=== PATIENT | female | born 1975 | race Caucasian/White ===

== ENCOUNTER 2023-05-10 20:34 | Outpatient (REF) | payer OTHER, SELFPAY ==
[2023-05-13 10:14] LABS: Age Gdln ACOG Testing Note (.); HPV Aptima Negative (Negative); IGP, Aptima HPV, rfx 16/18,45 Note (.)
== END 2023-05-10 20:35 | disposition home or self-care (01) ==
LOC: LAB 20:34
PROVIDERS: PCP Family Medicine; Visit Provider Internal Medicine
DX: Z12.4 Encounter for screening for malignant neoplasm of cervix (principal)
CPT/HCPCS: 87624; G0145

== ENCOUNTER 2023-08-09 10:54 | Outpatient (OUT) | payer OTHER, SELFPAY ==
--- NOTE | 2023-08-09 11:04 | MM_ITS ---
Patient Name: GAYLE CAMARA MR#: [id number] : 1975 Exam Date: 08/09/2023 Ordering Doctor: DR Jermain Collins . RADIOLOGY REPORT PROCEDURE: MM TOMOSYNTHESIS SCREENING BI COMPARISON: MG MAMM SCREEN 3D ANGÉLICA CAD, 07/28/2021. MG MAMM SCREEN 3D ANGÉLICA CAD, 08/03/2022. INDICATIONS: Screening Calculator Name NCI Breast Cancer Risk Assessment Tool 5 Year Breast Cancer Risk 1.00% Lifetime Breast Cancer Risk 10.20% Personal Breast Cancer No Personal Ovarian Cancer No Treatments None Family Cancers Aunt-maternal with breast cancer at age ~50. LOCATION: [facility] BREAST COMPOSITION: Heterogeneously dense,which may obscure small masses. FINDINGS: DIAGNOSTIC CATEGORY 2--BENIGN FINDING. NO CHANGE FROM COMPARISON. Scattered benign-appearing nodules are present. Scattered benign-appearing calcifications are present. Scattered benign-appearing lymph nodes are present. RIGHT BREAST: No significant suspicious finding. LEFT BREAST: No significant suspicious finding. RECOMMENDATIONS: ROUTINE MAMMOGRAM AND CLINICAL EVALUATION IN 12 MONTHS. PLEASE NOTE: A NORMAL MAMMOGRAM DOES NOT EXCLUDE THE POSSIBILITY OF BREAST CANCER. A CLINICALLY SUSPICIOUS PALPABLE LUMP SHOULD BE BIOPSIED. Dictated by: Alan Hoyos MD on 08/09/2023 at 13:34 Approved by: Alan Hoyos MD on 08/09/2023 at 13:40
== END 2023-08-09 10:55 | disposition home or self-care (01) ==
LOC: MAMMO 10:57
PROVIDERS: PCP Family Medicine; Visit Provider Obstetrics & Gynecology
DX: Z12.31 Encounter for screening mammogram for malignant neoplasm of breast (principal); Z80.3 Family history of malignant neoplasm of breast
CPT/HCPCS: 77063; 77067

== ENCOUNTER 2024-07-17 21:44 | Outpatient (REF) | payer OTHER, SELFPAY ==
--- OUTSIDE RECORDS SUMMARY | 2024-07-17 21:48 | XMS_ITS | CCD ---
Author Organization [facility] Care Team Providers Care Commercial Lines Assistant Name Role Phone DR RADHA MENA Admitting Unavailable DR RADHA MENA Attending Unavailable DR LUIS GAXIOLA Primary Care Unavailable SAMUEL, DR ELOISA Camargo Consulting Unavailable DR RADHA MENA Consulting Unavailable PUMP, MELVIN Attending Unavailable LUIS GAXIOLA Attending Unavailable Allergies Allergy Classification Reported Allergen(s) Allergy Type Date of Onset Reaction(s) Facility (1 source) Iodine (And Iodine Containting Drugs) Drug allergy (disorder) 06-10-20 15 [facility] Repository (1 source) moxifloxacin Drug Allergy 02-29-20 13 [facility] (1 source) Sulfonamides (Antibiotic) Drug allergy (disorder) 06-10-20 15 [facility] (4 sources) moxifloxacin Drug Allergy 01-31-20 24 Gastrointestinal Upset [facility] (4 sources) Gadolinium-Cont aining Contrast Medi Allergy to substance 01-31-20 24 [facility] (4 sources) Iodinated Contrast Media Allergy to substance 01-31-20 24 [facility] Medications Current Medications Medication Drug Class(es) Dates Sig (Normalized) Sig (Original) budesonide 0.032 mg/actuat metered dose nasal spray (4 sources) Corticosteroid Start: 4 take 1 spray(s) nasal route once daily Budesonide Active 1 SPRAY INTRANASAL Daily January 31, 2024 12:00am administer into each nostril citalopram 20 mg oral tablet (4 sources) Serotonin Reuptake Inhibitor Start: 4 take 20 mg by mouth once daily Citalopram Active 20 MG PO Daily January 31, 2024 12:00am hydroCHLOROthiazide 25 mg / lisinopril 20 mg oral tablet (4 sources) Thiazide Diuretic, Angiotensin Converting Enzyme Inhibitor Start: 4 take 1 tablet by mouth once daily Lisinopril-Hydroc hlorothiazide Active 1 TAB PO Daily January 31, 2024 12:00am hyoscyamine sulfate 0.125 mg oral tablet (4 sources) Start: 4 Hyoscyamine Sulfate Active 0.125 MG PO 2-4 TIMES PER DAY January 31, 2024 12:00am levothyroxine sodium 0.125 mg oral tablet (4 sources) l-Thyroxine Start: 4 take 125 ug by mouth once daily Levothyroxine Active 125 MCG PO Daily January 31, 2024 12:00am metFORMIN hydrochloride 500 mg oral tablet (4 sources) Biguanide Start: 4 take 500 mg by mouth once daily Metformin Active 500 MG PO Daily January 31, 2024 12:00am promethazine hydrochloride 25 mg oral tablet (4 sources) Phenothiazine Start: 4 take 25 mg by mouth three times daily Promethazine Active 25 MG PO Three times daily January 31, 2024 12:00am rimegepant 75 mg disintegrating oral tablet (4 sources) Start: 4 Rimegepant (Nurtec Odt) 75 mg tablet,disintegra ting Active 75 MG PO .prn January 31, 2024 12:00am rizatriptan 10 mg oral tablet (4 sources) Serotonin-1b and Serotonin-1d Receptor Agonist Start: 4 take 1 tablet by mouth every two hours Rizatriptan Active 0 PO .COMPLEX January 31, 2024 12:00am take 1 tab at onset of headache; if no relief may repeat 1 tab after at least 2 hrs; max = 3 tabs/24 hr PO Semaglutide Base (3 sources) Start: 4 inject 1 mL by subcutaneous injection every week Semaglutide Base Active 0.25 ML SUBCUT every week January 31, 2024 12:00am [facility] Compounded Pre-filled Syringes using Semaglutide Base. Dispense 1 mL = (Four 0.25 mL pre-filled syringes) Problems Problem Classification Problem Date Documented Da te Episodic/Chronic Anxiety disorders (4 sources) Anxiety; Translations: [Anxiety disorder, unspecified] 01-31-2024 Chronic Diabetes mellitus without complication (10 sources) Prediabetes; Translations: [Prediabetes] 01-31-2024 Episodic Disorders of lipid metabolism (7 sources) Hypertriglyceridemi a; Translations: [Pure hyperglyceridemia] 01-31-2024 Chronic Essential hypertension (10 sources) Hypertensive disorder; Translations: [Essential (primary) hypertension] 01-31-2024 Chronic Headache; including migraine (4 sources) Migraine; Translations: [Migraine, unspecified, not intractable, without status migrainosus] 01-31-2024 Chronic Malaise and fatigue (4 sources) Fatigue; Translations: [Other fatigue] 01-31-2024 Episodic Mood disorders (6 sources) Depressive disorder; Translations: [Depression] 01-31-2024 Chronic Other connective tissue disease (4 sources) Fibromyalgia; Translations: [Fibromyalgia] 01-31-2024 Episodic Other endocrine disorders (4 sources) Polycystic ovary syndrome; Translations: [Polycystic ovarian syndrome] 01-31-2024 Chronic Other endocrine disorders (2 sources) Polycystic ovarian syndrome; Translations: [Polycystic ovaries] 01-31-2024 Chronic Other gastrointestinal disorders (4 sources) Heartburn; Translations: [Heartburn] 01-31-2024 Episodic Other gastrointestinal disorders (2 sources) Heartburn; Translations: [Heartburn] 01-31-2024 Episodic Other lower respiratory disease (4 sources) Snoring; Translations: [Snoring] 01-31-2024 Episodic Other lower respiratory disease (2 sources) Snoring; Translations: [Other respiratory abnormalities] 01-31-2024 Episodic Other nutritional; endocrine; and metabolic disorders (1 source) Body mass index 40+ - severely obese; Translations: [Body mass index (BMI) 40.0-44.9, adult] 03-20-2024 Chronic Other nutritional; endocrine; and metabolic disorders (1 source) Body mass index (BMI) 40.0-44.9, adult; Translations: [Body Mass Index 40.0-44.9, adult] 03-20-2024 Chronic Other nutritional; endocrine; and metabolic disorders (3 sources) Abnormal weight gain; Translations: [Abnormal weight gain] 01-31-2024 Episodic Other nutritional; endocrine; and metabolic disorders (2 sources) Abnormal weight gain; Translations: [Abnormal weight gain] 01-31-2024 Episodic Other screening for suspected conditions (not mental disorders or infectious disease) (4 sources) Encounter for screening mammogram for malignant neoplasm of breast; Translations: [ENC SCR MAMMO MALIG NEOPLASM BREAST] Onset: 08-03-2022 Episodic Residual codes; unclassified (1 source) Family history of malignant neoplasm of breast; Translations: [FAMILY HX MALIG NEOPLASM OF BREAST] Onset: 08-08-2022 Episodic Spondylosis; intervertebral disc disorders; other back problems (4 sources) Low back pain; Translations: [Low back pain] 01-31-2024 Episodic Thyroid disorders (10 sources) Hypothyroidism; Translations: [Hypothyroidism, unspecified] 01-31-2024 Chronic Results Test Name Value Interpretation Reference Range Facil ity MG MAMM SCREEN 3D ANGÉLICA CADon 08-03-2022 MG MAMM SCREEN 3D ANGÉLICA CAD Patient: CHANDA STEVE Exam Date: 08/03/2022 : 1975 Gender:F Ordering : DR RADHA MENA . Admission #: [id number] Family : Order #: [id number] CLICK HERE TO VIEW EXAM RADIOLOGY REPORT PROCEDURE: MAMMOGRAM SCREENING 3D BILATERAL CAD COMPARISON: MG MAMM SCREEN 3D ANGÉLICA CAD, 07/28/2021. MG MAMM SCREEN ANGÉLICA W CAD, 07/05/2020. INDICATIONS: Screening mammography Calculator Name NCI Breast Cancer Risk Assessment Tool 5 Year Breast Cancer Risk 1.00% Lifetime Breast Cancer Risk 10.30% Personal Breast Cancer No Personal Ovarian Cancer No Treatments None Family Cancers Aunt-maternal with breast cancer at age 50. LOCATION: [facility] BREAST COMPOSITION: Heterogeneously dense,which may obscure small masses. FINDINGS: DIAGNOSTIC CATEGORY 2--BENIGN FINDING. NO CHANGE FROM COMPARISON. Scattered benign-appearing nodules are present. Scattered benign-appearing calcifications are present. Scattered benign-appearing lymph nodes are present. RIGHT BREAST: No significant suspicious finding. LEFT BREAST: No significant suspicious finding. RECOMMENDATIONS: ROUTINE MAMMOGRAM AND CLINICAL EVALUATION IN 12 MONTHS. PLEASE NOTE: A NORMAL MAMMOGRAM DOES NOT EXCLUDE THE POSSIBILITY OF BREAST CANCER. A CLINICALLY SUSPICIOUS PALPABLE LUMP SHOULD BE BIOPSIED. Dictated by: Eloisa Hoyos MD on 08/03/2022 at 12:49 Approved by: Eloisa Hoyos MD on 08/03/2022 at 12:50 Normal [facility] Q - CULTURE,URINE,ROUTINEon 12-10-2021 CULTURE, URINE, ROUTINE SEE NOTE Normal [facility] Pile Driving Supervisor Comment on above: Order Comment: [facility]U Testing performed at: QPT, [facility], [address], [address] [facility], [place], [address], Senior Mechanical Designer: Freddy Garcia MD [facility] Collection Date/Time: [id number] [facility] Results Received Date/Time: [facility] Reported Date/Time: Result Comment: CULT URE, URINE, ROUTINE Micro Number: [id number] Test Status: Final Specimen Source: Urine Specimen Quality: Adequate Result: No Growth Performed By: #### [id number] #### [facility] Default [address] [place] [address] XR Abdomen Single View (KUB) *on 12-10-2021 XR Abdomen Single View (KUB)* FINDINGS: Renal shadows and the course of both ureters above the pelvic brim are obscured by moderate to large volume of stool throughout the colon. No distal ureteral or bladder stones are seen. Bowel gas pattern is otherwise unremarkable. Cholecystectomy clips. IMPRESSION: 1. No ureteral or bladder stones 2. Obscured renal shadows COMMENT: If detection of small calcifications would affect clinical management, CT scanning may be of assistance. Report reported and signed by Ramses Alvarez on 12/11/2021 [id number] Normal [facility] Pile Driving Supervisor Vital Signs Date Time Vital Sign Value Performing Clinician Prabhu brito 05-15-2024 10:030400 Body height 160.02 cm [facility] 05-15-2024 10:030400 Body mass index (BMI) [Ratio] 40.4 kg/m2 [facility] 05-15-2024 10:03-0400 Body weight 103.67 kg [facility] 05-15-2024 10:03-0400 Diastolic blood pressure 81 mm[Hg] [facility] 05-15-2024 10:03-0400 Heart rate 88 /min [facility] 05-15-2024 10:030400 Respiratory rate 18 /min [facility] 05-15-2024 10:03-0400 SaO2% (BldA) [Mass fraction] 100 % [facility] 05-15-2024 10:03-0400 Systolic blood pressure 118 mm[Hg] [facility] 03-20-2024 08:25-0400 Body height 160.02 cm [facility] 03-20-2024 08:25-0400 Body mass index (BMI) [Ratio] 41.6 kg/m2 [facility] 03-20-2024 08:25-0400 Body weight 106.67 kg [facility] 03-20-2024 08:25-0400 Diastolic blood pressure 86 mm[Hg] [facility] 03-20-2024 08:25-0400 Heart rate 74 /min [facility] 03-20-2024 08:25-0400 Respiratory rate 16 /min [facility] 03-20-2024 08:25-0400 SaO2% (BldA) [Mass fraction] 100 % [facility] 03-20-2024 08:25-0400 Systolic blood pressure 127 mm[Hg] [facility] 01-31-2024 08:14-0400 Body height 160.02 cm [facility] 01-31-2024 08:14-0400 Body mass index (BMI) [Ratio] 44.1 kg/m2 [facility] 01-31-2024 08:14-0400 Body weight 112.94 kg [facility] 01-31-2024 08:14-0400 Diastolic blood pressure 88 mm[Hg] [facility] 01-31-2024 08:14-0400 Heart rate 77 /min [facility] 01-31-2024 08:14-0400 Respiratory rate 16 /min [facility] 01-31-2024 08:14-0400 SaO2% (BldA) [Mass fraction] 98 % [facility] 01-31-2024 08:14-0400 Systolic blood pressure 134 mm[Hg] [facility] Encounters Encounter Date Encounter Type Care Provider Facility Start: 05-15-2024 End: 05-15-2024 ambulatory [facility] Work Phone: Start: 05-15-2024 End: 05-15-2024 Patient encounter procedure [facility] Work Phone: Start: 03-20-2024 End: 03-20-2024 ambulatory [facility] Work Phone: Start: 03-20-2024 End: 03-20-2024 Patient encounter procedure [facility] Work Phone: Start: 02-22-2024 End: 02-22-2024 ambulatory [facility] Work Phone: Start: 02-22-2024 End: 02-22-2024 Patient encounter procedure [facility] Work Phone: Start: 02-09-2024 End: 02-09-2024 ambulatory LUIS Yanes WONDERLY Not Available Start: 01-31-2024 End: 01-31-2024 ambulatory [facility] Work Phone: Start: 01-31-2024 End: 01-31-2024 Patient encounter procedure [facility] Work Phone: Start: 11-25-2023 Non-patient / Non-visit [facility] Work Phone: Start: 11-08-2023 End: 11-08-2023 ambulatory MELVIN PUMP Not Available Start: 08-03-2022 End: 08-04-[address] RADHA MENA Facility: Payers Date Payer Category Payer Unknown [id number] 1975 Unknown [id number] 1975 Unknown [id number] 1960 Unknown [id number] 1960 Unknown [id number] Social History Date Type Detail Facility Start: [facility]-31-[facility]24 [facility] Start: 1975 Sex Assigned At Female F [facility] Evaluation note 03-20-2024 Note Date & Type Note Facility 03-20-2024 Evaluation note Authored May 15, 2024 10:18am Highest weight/starting weig ht: 249 lbs Start weight: 249 lbs. she is down 20.1 lbs. Today's weight 228.9 lbs she is down 6.4 lbs since last visit 03/20/24. Starting Date: 01/31/2024. Semaglutide start date 01/31/2024. Semaglutide start weight 249 pounds. 1. Abnormal weight gain 2. Obesity-This is her first visit back. Improved on compounded semaglutide. She had tried many times on her own and unable to lose long-term weight and she is at her highest weight ever. She had issues with skipping breakfast, sometimes lunch and eating most of her food at night.The patient will treat with long-term lifestyle changes of improved nutrition, increased exercise and activity, stress reduction, adequate sleep and behavioral modification versus short-term dieting. Her PHQ-9 is 7 with starting the program she is on citalopram 20 mg. We will try to avoid Topamax with history of kidney stones. 3. Impaired fasting glucose/prediabetes/gestational helcbtrf-niicc-wsmk treatment with lifestyle change, decrease simple sweets and starches, increased exercise and weight loss. Restart 1000 mg metformin which also helps with her chronic constipation. Recommend a GLP-1 agonist. Needs close long-term follow-up this condition to prevent diabetes. 4. Hypertension-treat with a low-salt diet, decreased processed and restaurant foods, healthy lifestyle changes and achieve long-term weight loss. Monitor outside the office. Controlled on lisinopril-HCTZ. 5. Hypertriglyceridemia-treat with decreasing the simple sweets, added sugars, refined starches, and bad/added fats, increasing activity and exercise and continued long-term weight loss. 6. Kidney stones 7. Hypothyroidism-her TSH was 4 when checked last May. Recommend a goal TSH between 1-2 with her PCP. 8. Menopause-began September 2023. 9. Depression/anxiety-controlled her mood is good and stress level down now on citalopram. Citalopram could cause weight creep in the future if possible she could see how she is doing weaning off the medication. 10. PCOS-treat with healthy lifestyle and metformin. 11. Chronic low back pain-treat with healthy exercise and weight loss. 12. GERD-treat with antireflux diet and weight loss. Hopefully will not worsen with GLP-1. Follow up with me in 6 weeks. New labs needed: Up-to-date. She will need yearly follow-up blood work in May to follow-up her prediabetes and hypertriglyceridemia Author Breezy Salas [facility] Authored March 20, 2024 9:06 am Highest weight/starting weig ht: 249 lbs Start weight: 249 lbs. she is down 13.7 lbs. Today's weight 235.3 lbs she is down 13.7 lbs since last visit 01/31/24. Starting Date: 01/31/2024. Semaglutide start date 01/31/2024. Semaglutide start weight 249 pounds. 1. Abnormal weight gain 2. Obesity-This is her first visit back. Improved on compounded semaglutide. She had tried many times on her own and unable to lose long-term weight and she is at her highest weight ever. She had issues with skipping breakfast, sometimes lunch and eating most of her food at night.The patient will treat with long-term lifestyle changes of improved nutrition, increased exercise and activity, stress reduction, adequate sleep and behavioral modification versus short-term dieting. Her PHQ-9 is 7 with starting the program she is on citalopram 20 mg. We will try to avoid Topamax with history of kidney stones. 3. Impaired fasting glucose/prediabetes/gestational rzqswmna-sytpz-iuji treatment with lifestyle change, decrease simple sweets and starches, increased exercise and weight loss. Restart 1000 mg metformin which also helps with her chronic constipation. Recommend a GLP-1 agonist. Needs close long-term follow-up this condition to prevent diabetes. 4. Hypertension-treat with a low-salt diet, decreased processed and restaurant foods, healthy lifestyle changes and achieve long-term weight loss. Monitor outside the office. Controlled on lisinopril-HCTZ. 5. Hypertriglyceridemia-treat with decreasing the simple sweets, added sugars, refined starches, and bad/added fats, increasing activity and exercise and continued long-term weight loss. 6. Kidney stones 7. Hypothyroidism-her TSH was 4 when checked last May. Recommend a goal TSH between 1-2 with her PCP. 8. Menopause-began September 2023. 9. Depression/anxiety-controlled her mood is good and stress level down now on citalopram. Citalopram could cause weight creep in the future if possible she could see how she is doing weaning off the medication. 10. PCOS-treat with healthy lifestyle and metformin. 11. Chronic low back pain-treat with healthy exercise and weight loss. 12. GERD-treat with antireflux diet and weight loss. Hopefully will not worsen with GLP-1. Follow up with me in 6 weeks. New labs needed: Up-to-date. She will need yearly follow-up blood work in May to follow-up her prediabetes and hypertriglyceridemia. [facility] Work Phone: Evaluation note 01-31-2024 Note Date & Type Note Facility 01-31-2024 Evaluation note Authored January 31, 2024 9:24am Assessment: Highest weight/starting weight: 249 lbs Start weight: 249 lbs. Starting Date: 01/31/2024. Semaglutide start date 01/31/2024. Semaglutide start weight 249 pounds. 1. Abnormal weight gain 2. Obesity-she would like to try compounded semaglutide as weight loss medications most likely not covered by her insurance. She has tried many times on her own and unable to lose long-term weight and she is at her highest weight ever. She has issues with skipping breakfast, sometimes lunch and eating most of her food at night.The patient will treat with long-term lifestyle changes of improved nutrition, increased exercise and activity, stress reduction, adequate sleep and behavioral modification versus short-term dieting. Her PHQ-9 is 7 with starting the program she is on citalopram 20 mg. We will try to avoid Topamax with history of kidney stones. The patient has no contraindications to semaglutide. The patient does not feel that she can afford the branded version and not covered by insurance. She would like to try compounded semaglutide. The patient will begin compounded semaglutide to help with both glycemic control and satiety. The risks, benefits and side effects were discussed; including but not limited to the risk of nausea, vomiting, increased heartburn, abdominal discomfort, constipation diarrhea and risk of hypoglycemia. The patient was also counseled on the slight increase risk of acute pancreatitis and symptomatic choledocholithiasis. The patient denies any previous history of pancreatitis, gallbladder disease or personal or family history of medullary thyroid cancer or MEN syndrome. -Begin 0.3 mg weekly. The patient will stop compounded semaglutide any significant nausea, vomiting, abdominal pain or other side effects. 3. Impaired fasting glucose/prediabetes/gestational kluppojl-ahgvv-zthc treatment with lifestyle change, decrease simple sweets and starches, increased exercise and weight loss. Restart 1000 mg metformin which also helps with her chronic constipation. Recommend a GLP-1 agonist. Needs close long-term follow-up this condition to prevent diabetes. 4. Hypertension-treat with a low-salt diet, decreased processed and restaurant foods, healthy lifestyle changes and achieve long-term weight loss. Monitor outside the office. Controlled on lisinopril-HCTZ. 5. Hypertriglyceridemia-treat with decreasing the simple sweets, added sugars, refined starches, and bad/added fats, increasing activity and exercise and continued long-term weight loss. 6. Kidney stones 7. Hypothyroidism-her TSH was 4 when checked last May. Recommend a goal TSH between 1-2 with her PCP. 8. Menopause-began September 2023. 9. Depression/anxiety-controlled her mood is good and stress level down now on citalopram. Citalopram could cause weight creep in the future if possible she could see how she is doing weaning off the medication. 10. PCOS-treat with healthy lifestyle and metformin. 11. Chronic low back pain-treat with healthy exercise and weight loss. 12. GERD-treat with antireflux diet and weight loss. Hopefully will not worsen with GLP-1. Follow up with me in 6 weeks. New labs needed: Up-to-date. She will need yearly follow-up blood work in May to follow-up her prediabetes and hypertriglyceridemia. The patient was instructed to consider logging all foods and caloric beverages. I highly recommended minimizing or stopping caloric beverages including alcohol. The importance of preplanning, shopping at the edge of the store, decreasing unhealthy food cues and environmental control stressed. I recommend packing snacks and meals when out of the home. Remove trigger/unhealthy foods if possible from the home. No macronutrient is completely restricted. We discussed the addictive nature and unhealthy biological changes that occur with ultra processed food. We discussed the brain and peripheral biological changes with obesity that make it a chronic disease. Importance of cooking most food items from scratch discussed. No skipping any meals. Avoid added sugar, refined starches, and added fats. I highly recommended preference for whole foods/real foods. Foods from the farm, not from the factory. The plate method discussed and handout given. Lean unprocessed protein with each meal and each snack to help control appetite, decrease cravings and lessen muscle loss with weight loss advised. Consider use of a protein shake or protein bar instead of missing a meal. The patient will try to get at least 5 or more servings of low carbohydrate veggies/salads daily. Recommend regular follow-up with our registered dietitian. Benefits of regular exercise including cardio and resistance training discussed and recommended as appropriate for the patient. Slowly increase activity. Our exercise program was recommended with our agricultural systems specialist/obesity exercise group. Handout given. Our free weekly group support/food triggers program was highly recommended to help with long-term behavioral change and support. Handout given. The patient must start healthy behavioral changes. The patient was instructed on good sleep hygiene and on the importance of adequate sleep. Circadian rhythm and the importance of mealtime discussed. I recommended stress reduction. Medication addition and subtraction options discussed. Risks and benefits of prescribed meds discussed. Initial rhjz-xm-[id number] interview/evaluation. The patient was counseled in detail on the options for weight loss in an individual setting. 56 minutes was spent caring for the patient, counseling/educating patient on the options for the treatment of obesity and related healthcare issues. The program's treatment goals were reviewed with the patient. Each aspect of the program was discussed with the patient. [facility] Work Phone: Evaluation note 01-31-2024 Note Date & Type Note Facility 01-31-2024 Evaluation note Authored January 31, 2024 9:24am Assessment: Highest weight/starting weight: 249 lbs Start weight: 249 lbs. Starting Date: 01/31/2024. Semaglutide start date 01/31/2024. Semaglutide start weight 249 pounds. 1. Abnormal weight gain 2. Obesity-she would like to try compounded semaglutide as weight loss medications most likely not covered by her insurance. She has tried many times on her own and unable to lose long-term weight and she is at her highest weight ever. She has issues with skipping breakfast, sometimes lunch and eating most of her food at night.The patient will treat with long-term lifestyle changes of improved nutrition, increased exercise and activity, stress reduction, adequate sleep and behavioral modification versus short-term dieting. Her PHQ-9 is 7 with starting the program she is on citalopram 20 mg. We will try to avoid Topamax with history of kidney stones. The patient has no contraindications to semaglutide. The patient does not feel that she can afford the branded version and not covered by insurance. She would like to try compounded semaglutide. The patient will begin compounded semaglutide to help with both glycemic control and satiety. The risks, benefits and side effects were discussed; including but not limited to the risk of nausea, vomiting, increased heartburn, abdominal discomfort, constipation diarrhea and risk of hypoglycemia. The patient was also counseled on the slight increase risk of acute pancreatitis and symptomatic choledocholithiasis. The patient denies any previous history of pancreatitis, gallbladder disease or personal or family history of medullary thyroid cancer or MEN syndrome. -Begin 0.3 mg weekly. The patient will stop compounded semaglutide any significant nausea, vomiting, abdominal pain or other side effects. 3. Impaired fasting glucose/prediabetes/gestational rbogkspu-thqhp-mpuo treatment with lifestyle change, decrease simple sweets and starches, increased exercise and weight loss. Restart 1000 mg metformin which also helps with her chronic constipation. Recommend a GLP-1 agonist. Needs close long-term follow-up this condition to prevent diabetes. 4. Hypertension-treat with a low-salt diet, decreased processed and restaurant foods, healthy lifestyle changes and achieve long-term weight loss. Monitor outside the office. Controlled on lisinopril-HCTZ. 5. Hypertriglyceridemia-treat with decreasing the simple sweets, added sugars, refined starches, and bad/added fats, increasing activity and exercise and continued long-term weight loss. 6. Kidney stones 7. Hypothyroidism-her TSH was 4 when checked last May. Recommend a goal TSH between 1-2 with her PCP. 8. Menopause-began September 2023. 9. Depression/anxiety-controlled her mood is good and stress level down now on citalopram. Citalopram could cause weight creep in the future if possible she could see how she is doing weaning off the medication. 10. PCOS-treat with healthy lifestyle and metformin. 11. Chronic low back pain-treat with healthy exercise and weight loss. 12. GERD-treat with antireflux diet and weight loss. Hopefully will not worsen with GLP-1. Follow up with me in 6 weeks. New labs needed: Up-to-date. She will need yearly follow-up blood work in May to follow-up her prediabetes and hypertriglyceridemia. The patient was instructed to consider logging all foods and caloric beverages. I highly recommended minimizing or stopping caloric beverages including alcohol. The importance of preplanning, shopping at the edge of the store, decreasing unhealthy food cues and environmental control stressed. I recommend packing snacks and meals when out of the home. Remove trigger/unhealthy foods if possible from the home. No macronutrient is completely restricted. We discussed the addictive nature and unhealthy biological changes that occur with ultra processed food. We discussed the brain and peripheral biological changes with obesity that make it a chronic disease. Importance of cooking most food items from scratch discussed. No skipping any meals. Avoid added sugar, refined starches, and added fats. I highly recommended preference for whole foods/real foods. Foods from the farm, not from the factory. The plate method discussed and handout given. Lean unprocessed protein with each meal and each snack to help control appetite, decrease cravings and lessen muscle loss with weight loss advised. Consider use of a protein shake or protein bar instead of missing a meal. The patient will try to get at least 5 or more servings of low carbohydrate veggies/salads daily. Recommend regular follow-up with our registered dietitian. Benefits of regular exercise including cardio and resistance training discussed and recommended as appropriate for the patient. Slowly increase activity. Our exercise program was recommended with our agricultural systems specialist/obesity exercise group. Handout given. Our free weekly group support/food triggers program was highly recommended to help with long-term behavioral change and support. Handout given. The patient must start healthy behavioral changes. The patient was instructed on good sleep hygiene and on the importance of adequate sleep. Circadian rhythm and the importance of mealtime discussed. I recommended stress reduction. Medication addition and subtraction options discussed. Risks and benefits of prescribed meds discussed. Initial cmzf-nw-bywx interview/evaluation. The patient was counseled in detail on the options for weight loss in an individual setting. 56 minutes was spent caring for the patient, counseling/educating patient on the options for the treatment of obesity and related healthcare issues. The program's treatment goals were reviewed with the patient. Each aspect of the program was discussed with the patient. Author Mary Ellen Maico [facility] Authored March 20, 2024 8:41 am Highest weight/starting weig ht: 249 lbs Start weight: 249 lbs. she is down 13.7 lbs. Today's weight 235.3 lbs she is down 13.7 lbs since last visit 01/31/24. Starting Date: 01/31/2024. Semaglutide start date 01/31/2024. Semaglutide start weight 249 pounds. 1. Abnormal weight gain 2. Obesity-she would like to try compounded semaglutide as weight loss medications most likely not covered by her insurance. She has tried many times on her own and unable to lose long-term weight and she is at her highest weight ever. She has issues with skipping breakfast, sometimes lunch and eating most of her food at night.The patient will treat with long-term lifestyle changes of improved nutrition, increased exercise and activity, stress reduction, adequate sleep and behavioral modification versus short-term dieting. Her PHQ-9 is 7 with starting the program she is on citalopram 20 mg. We will try to avoid Topamax with history of kidney stones. The patient has no contraindications to semaglutide. The patient does not feel that she can afford the branded version and not covered by insurance. She would like to try compounded semaglutide. The patient will begin compounded semaglutide to help with both glycemic control and satiety. The risks, benefits and side effects were discussed; including but not limited to the risk of nausea, vomiting, increased heartburn, abdominal discomfort, constipation diarrhea and risk of hypoglycemia. The patient was also counseled on the slight increase risk of acute pancreatitis and symptomatic choledocholithiasis. The patient denies any previous history of pancreatitis, gallbladder disease or personal or family history of medullary thyroid cancer or MEN syndrome. -Begin 0.3 mg weekly. The patient will stop compounded semaglutide any significant nausea, vomiting, abdominal pain or other side effects. 3. Impaired fasting glucose/prediabetes/gestational ygjwiqzd-eglmu-bnlu treatment with lifestyle change, decrease simple sweets and starches, increased exercise and weight loss. Restart 1000 mg metformin which also helps with her chronic constipation. Recommend a GLP-1 agonist. Needs close long-term follow-up this condition to prevent diabetes. 4. Hypertension-treat with a low-salt diet, decreased processed and restaurant foods, healthy lifestyle changes and achieve long-term weight loss. Monitor outside the office. Controlled on lisinopril-HCTZ. 5. Hypertriglyceridemia-treat with decreasing the simple sweets, added sugars, refined starches, and bad/added fats, increasing activity and exercise and continued long-term weight loss. 6. Kidney stones 7. Hypothyroidism-her TSH was 4 when checked last May. Recommend a goal TSH between 1-2 with her PCP. 8. Menopause-began September 2023. 9. Depression/anxiety-controlled her mood is good and stress level down now on citalopram. Citalopram could cause weight creep in the future if possible she could see how she is doing weaning off the medication. 10. PCOS-treat with healthy lifestyle and metformin. 11. Chronic low back pain-treat with healthy exercise and weight loss. 12. GERD-treat with antireflux diet and weight loss. Hopefully will not worsen with GLP-1. Follow up with me in 6 weeks. New labs needed: Up-to-date. She will need yearly follow-up blood work in May to follow-up her prediabetes and hypertriglyceridemia. [facility] Work Phone: Chief complaint+Reason for visit Narrative Note Date & Type Note Facility Chief complaint+Reason for v isit Narrative [facility] Work Phone: Chief complaint+Reason for visit Narrative Note Date & Type Note Facility Chief complaint+Reason for visit Narrative Reason for Visit Abnormal weight gain Depression Essential hypertension Lani's disease Heart burn Hypertriglyceridemia Loud snoring Polycystic ovarian syndrome Prediabetes [facility] Work Phone: Evaluation note Note Date & Type Note Facility Evaluation note Authored January 31, 2024 9:19am Assessment: Highest weight/starting weight: 249 lbs Start weight: 249 lbs. Starting Date: 01/31/2024. Semaglutide start date 01/31/2024. Semaglutide start weight 249 pounds. 1. Abnormal weight gain 2. Obesity-she would like to try compounded semaglutide as weight loss medications most likely not covered by her insurance. She has tried many times on her own and unable to lose long-term weight and she is at her highest weight ever. She has issues with skipping breakfast, sometimes lunch and eating most of her food at night.The patient will treat with long-term lifestyle changes of improved nutrition, increased exercise and activity, stress reduction, adequate sleep and behavioral modification versus short-term dieting. Her PHQ-9 is 7 with starting the program she is on citalopram 20 mg. The patient has no contraindications to semaglutide. The patient does not feel that she can afford the branded version and not covered by insurance. She would like to try compounded semaglutide. The patient will begin compounded semaglutide to help with both glycemic control and satiety. The risks, benefits and side effects were discussed; including but not limited to the risk of nausea, vomiting, increased heartburn, abdominal discomfort, constipation diarrhea and risk of hypoglycemia. The patient was also counseled on the slight increase risk of acute pancreatitis and symptomatic choledocholithiasis. The patient denies any previous history of pancreatitis, gallbladder disease or personal or family history of medullary thyroid cancer or MEN syndrome. -Begin 0.3 mg weekly. The patient will stop compounded semaglutide any significant nausea, vomiting, abdominal pain or other side effects. 3. Impaired fasting glucose/prediabetes/gestational goqixdtu-cwerp-orpb treatment with lifestyle change, decrease simple sweets and starches, increased exercise and weight loss. Restart 1000 mg metformin which also helps with her chronic constipation. Recommend a GLP-1 agonist. Needs close long-term follow-up this condition to prevent diabetes. 4. [ ] 5. [ ] 6. [ ] 7. [ ] 8. [ ] 9. [ ] 10. [ ] 11. [ ] Follow up with me in 6 weeks. New labs needed: [TSH, cholesterol profile, and CMP] The patient was instructed to consider logging all foods and caloric beverages. I highly recommended minimizing or stopping caloric beverages including alcohol. The importance of preplanning, shopping at the edge of the store, decreasing unhealthy food cues and environmental control stressed. I recommend packing snacks and meals when out of the home. Remove trigger/unhealthy foods if possible from the home. No macronutrient is completely restricted. We discussed the addictive nature and unhealthy biological changes that occur with ultra processed food. We discussed the brain and peripheral biological changes with obesity that make it a chronic disease. Importance of cooking most food items from scratch discussed. No skipping any meals. Avoid added sugar, refined starches, and added fats. I highly recommended preference for whole foods/real foods. Foods from the farm, not from the factory. The plate method discussed and handout given. Lean unprocessed protein with each meal and each snack to help control appetite, decrease cravings and lessen muscle loss with weight loss advised. Consider use of a protein shake or protein bar instead of missing a meal. The patient will try to get at least 5 or more servings of low carbohydrate veggies/salads daily. Recommend regular follow-up with our registered dietitian. Benefits of regular exercise including cardio and resistance training discussed and recommended as appropriate for the patient. Slowly increase activity. Our exercise program was recommended with our agricultural systems specialist/obesity exercise group. Handout given. Our free weekly group support/food triggers program was highly recommended to help with long-term behavioral change and support. Handout given. The patient must start healthy behavioral changes. The patient was instructed on good sleep hygiene and on the importance of adequate sleep. Circadian rhythm and the importance of mealtime discussed. I recommended stress reduction. Medication addition and subtraction options discussed. Risks and benefits of prescribed meds discussed. Initial lfpb-by-tugy interview/evaluation. The patient was counseled in detail on the options for weight loss in an individual setting. [ ] minutes was spent caring for the patient, counseling/educating patient on the options for the treatment of obesity and related healthcare issues. The program's treatment goals were reviewed with the patient. Each aspect of the program was discussed with the patient. [facility] Work Phone: Summary Purpose Family History Relationship Condition Age at Onset Recorded Date/T trey Not Specified Heart disease Unknown Hypertension Unknown father Diabetes mellitus Unknown Relationship Condition Age at Onset Recorded Date/T trey mother Heart disease Unknown Hypertension Unknown father Diabetes mellitus Unknown Advance Directives Advance Directive Response Recorded Date/ Time Advance Directives No November 24, 2 024 10:19am Chief Complaint and Reason for Visit Chief Complaint Initial [facility] group Reason for Visit BMI 40.0-44.9, adult Essential hypertension Hypertriglyceridemia Prediabetes Additional Source Comments INFORMATION SOURCE (unrecogn ized section and content) DATE CREATED AUTHOR 12/17/2021 [facility] dical Specialist DATE CREATED AUTHOR AUTHOR'S ORGANIZ ATION 08/08/2022 [facility] DATE CREATED AUTHOR AUTHOR'S ORGANIZ ATION 02/10/2024 [facility] d[facility] Specialists EPIC Care Teams (unrecognized sec tion and content) Team Status: Active Member Role Status Ginna Gaxiola MD Primary Care Provider Active Team Status: Inactive Member Role Status Ginna Gaxiola MD Primary Care Provider Active Start: January 31, 2024 End: January 31, 2024 Breezy Salas MD Attending Provider Active Start: January 31, 2024 End: January 31, 2024 Team Status: Inactive Member Role Status Ginna Gaxiola MD Primary Care Provider Active Start: February 22, 2024 End: February 22, 2024 SILVERIO Vallejo Attending Provider Active Start: February 22, 2024 End: February 22, 2024 Team Status: Inactive Member Role Status Ginna Gaxiola MD Primary Care Provider Active Start: March 20, 2024 End: March 20, 2024 Breezy Salas MD Attending Provider Active Start: March 20, 2024 End: March 20, 2024 Team Status: Active Member Role Status Ginna Gaxiola MD Primary Care Provider Active Start: November 25, 2023 Kathya Hay RPH Attending Provider Active Start: November 25, 2023 Team Status: Inactive Member Role Status Ginna Gaxiola MD Primary Care Provider Active Start: May 15, 2024 End: May 15, 2024 Breezy Salas MD Attending Provider Active Start: May 15, 2024 End: May 15, 2024 Goals (unrecognized section and content) Goals may be documented in a n alternate sectionGoals may be documented in an alternate sectionGoals may be documented in an alternate sectionGoals may be documented in an alternate section FOR RECORDS PERTAINING TO PATIENTS WHO ARE OR HAVE BEEN ENROLLED IN A CHEMICAL DEPENDENCY/SUBSTANCEABUSE PROGRAM, SOME INFORMATION MAY BE OMITTED. This clinical summary was aggregated from multiple sources. Caution should be exercised in using it in the provision of clinical care. This summary normalizes information from multiple sources, and as a consequence, information in this document may materially change the coding, format and clinical context of patient data. In addition, data may be omitted in some cases. CLINICAL DECISIONS SHOULD BE BASED ON THE PRIMARY CLINICAL RECORDS. [facility] [employer] [facility]. provides no warranty or guarantee of the accuracy or completeness of information in this document.
== END 2024-07-17 21:45 | disposition home or self-care (01) ==
LOC: LAB 21:44
PROVIDERS: PCP Family Medicine; Visit Provider Physician Assistant
DX: Z01.419 Encounter for gynecological examination (general) (routine) without abnormal findings (principal)
CPT/HCPCS: 87624; 88175

== ENCOUNTER 2024-08-28 11:13 | Outpatient (OUT) | payer OTHER, SELFPAY ==
--- NOTE | 2024-08-28 11:15 | MM_ITS ---
Patient Name: GAYLE CAMARA MR#: [id number] : 1975 Exam Date: 08/28/2024 Ordering Doctor: DR Jermain Collins . RADIOLOGY REPORT PROCEDURE: MM TOMOSYNTHESIS SCREENING BI COMPARISON: MM TOMOSYNTHESIS SCREENING BI, 08/09/2023. MG MAMM SCREEN 3D ANGÉLICA CAD, 08/03/2022. MG MAMM SCREEN 3D ANGÉLICA CAD, 07/28/2021. MG MAMM ANGÉLICA SCRN W CAD DIG, 03/14/2015. INDICATIONS: Screening Calculator Name NCI Breast Cancer Risk Assessment Tool 5 Year Breast Cancer Risk 1.00% Lifetime Breast Cancer Risk 10.00% Personal Breast Cancer No Personal Ovarian Cancer No Treatments None Family Cancers Aunt-maternal with breast cancer at age ~50. LOCATION: [facility] BREAST COMPOSITION: The breasts are heterogeneously dense,which may obscure small masses. FINDINGS: DIAGNOSTIC CATEGORY 1--NEGATIVE. RIGHT BREAST: No significant suspicious finding. No significant change has occurred. LEFT BREAST: No significant suspicious finding. No significant change has occurred. RECOMMENDATIONS: ROUTINE MAMMOGRAM AND CLINICAL EVALUATION IN 12 MONTHS. PLEASE NOTE: A NORMAL MAMMOGRAM DOES NOT EXCLUDE THE POSSIBILITY OF BREAST CANCER. A CLINICALLY SUSPICIOUS PALPABLE LUMP SHOULD BE BIOPSIED. Dictated by: Corby Manzano M.D. on 08/28/2024 at 17:01 Approved by: Corby Manzano M.D. on 08/28/2024 at 17:03
--- OUTSIDE RECORDS SUMMARY | 2024-08-28 11:28 | XMS_ITS | CCD ---
Author Organization [facility] Care Team Providers Care Intern Retail Name Role Phone DR RADHA MENA Admitting Unavailable DR RADHA MENA Attending Unavailable DR SHAKILA GAXIOLA Primary Care Unavailable SAMUEL, DR ELOISA Camargo Consulting Unavailable DR RADHA MENA Consulting Unavailable Shakila Gaxiola MD Primary Care Provider HAYLEY YADAV Attending Unavailable SHAKILA GAXIOLA Attending Unavailable KATE PRIETO Attending Unavailable SHAKILA GAXIOLA Attending Unavailable KATE PRIETO Attending Unavailable Allergies Allergy Classification Reported Allergen(s) Allergy Type Date of Onset Reaction(s) Facility (1 source) Iodine (And Iodine Containting Drugs) Drug allergy (disorder) 06-10-20 15 [facility] (1 source) moxifloxacin Drug Allergy 02-29-20 13 [facility] (1 source) Sulfonamides (Antibiotic) Drug allergy (disorder) 06-10-20 15 [facility] (16 sources) moxifloxacin Drug Allergy 05-05-20 23 GI intolerance [facility] (4 sources) Gadolinium-Containi ng Contrast Medi Allergy to substance 01-31-20 24 Rash [facility] (16 sources) Iodinated Contrast Media Allergy to substance 06-16-20 21 Rash, Unknown [facility] (12 sources) Acetaminophen / HYDROcodone Drug Allergy 05-05-20 23 Unknown, Itching [facility] (12 sources) Clarithromycin Propensity to adverse reactions 05-05-20 23 Diarrhea [facility] (12 sources) Iodine Drug Allergy 05-05-20 23 Rash [facility] (12 sources) Nitrofurantoin Drug Allergy 05-05-20 23 Dizziness [facility] (12 sources) Ondansetron Drug Allergy 05-05-20 23 Headache [facility] (12 sources) oxyCODONE Drug Allergy 05-05-20 23 Unknown [facility] (12 sources) Sulfamethoxazole / Trimethoprim Drug Allergy 05-05-20 23 Other [facility] (12 sources) Sulfonamides (Antibiotic) Drug Intolerance 04-21-20 21 [facility] Medications Current Medications Medication Drug Class(es) Dates Sig (Normalized) Sig (Original) benzonatate 100 mg oral capsule (6 sources) Non-narcotic Antitussive Start: 4 End: 4 benzonatate (Tessalon) 100 MG capsule Indications: Acute cough Do not crush or chew. 1-2 tid prn for cough 30 capsule 1 02/09/2024 07/24/2024 Discontinued (Therapy completed) budesonide 0.032 mg/actuat metered dose nasal spray (4 sources) Corticosteroid Start: 4 take 1 spray(s) nasal route once daily Budesonide Active 1 SPRAY INTRANASAL Daily January 31, 2024 12:00am administer into each nostril citalopram 20 mg oral tablet (16 sources) Serotonin Reuptake Inhibitor Start: 4 citalopram (CeleXA) 20 MG tablet Indications: Anxiety, generalized (CMS/HCC) TAKE 1 TABLET DAILY 90 tablet 3 03/29/2024 Active desonide 0.0005 mg/mg topical ointment (6 sources) Corticosteroid Start: 4 End: 4 desonide (DesOwen) 0.05 % ointment Indications: Itching Apply topically 2 (two) times a day as needed (itching) for up to 14 days 60 g 1 07/17/2024 07/31/2024 Active famotidine 20 mg oral tablet (9 sources) Histamine-2 Receptor Antagonist Start: 4 End: 4 take 1 tablet by mouth once daily famotidine (Pepcid) 20 MG tablet Indications: Gastroesophageal reflux disease, unspecified whether esophagitis present Take 1 tablet (20 mg) by mouth Daily 90 tablet 3 07/24/2024 Active hydroCHLOROthiazide 25 mg / lisinopril 20 mg oral tablet (17 sources) Thiazide Diuretic, Angiotensin Converting Enzyme Inhibitor Start: 4 lisinopril-hydroCHL OROthiazide 20-25 MG tablet Indications: Essential hypertension (CMS/HCC) TAKE 1 TABLET DAILY 90 tablet 3 08/28/2024 Active Start: 09-01-2023 End: 08-28-2024 lisinopril-hydroCHLOROthiazi de 20-25 MG tablet Indications: Essential hypertension (CMS/HCC) TAKE 1 TABLET DAILY 90 tablet 3 09/01/2023 08/28/2024 Discontinued hyoscyamine sulfate 0.125 mg oral tablet (4 sources) Start: 01-31-2024 Hyoscyamine Sulfate Active 0.125 MG PO 2-4 TIMES PER DAY January 31, 2024 12:00am levothyroxine sodium 0.125 mg oral tablet (17 sources) l-Thyroxine Start: 08-09-2023 End: 08-02-2024 levothyroxine (Synthroid, Levoxyl) 125 MCG tablet Indications: Hypothyroidism, unspecified type (CMS/HCC) TAKE 1 TABLET DAILY ON AN EMPTY STOMACH 90 tablet 3 08/02/2024 Active metFORMIN hydrochloride 500 mg oral tablet (16 sources) Biguanide Start: 01-20-2024 metFORMIN (Glucophage) 500 MG tablet Indications: Polycystic ovarian syndrome TAKE 1 TABLET DAILY WITH A MEAL 90 tablet 3 01/20/2024 Active pantoprazole 40 mg delayed release oral tablet (6 sources) Proton Pump Inhibitor Start: 04-10-2024 End: 07-24-2024 take 1 tablet by mouth once daily pantoprazole (ProtoNix) 40 MG EC tablet Indications: Gastroesophageal reflux disease, unspecified whether esophagitis present Take 1 tablet (40 mg) by mouth Daily 90 tablet 1 04/10/2024 07/24/2024 Discontinued (Therapy completed) promethazine hydrochloride 25 mg oral tablet (16 sources) Phenothiazine Start: 01-31-2024 take 25 mg by mouth three times daily Promethazine Active 25 MG PO Three times daily January 31, 2024 12:00am Start: 12-13-2023 take 1 tablet by marcelo th every six hours for nausea promethazine (Phenergan) 25 MG tablet Indications: Migraine without status migrainosus, not intractable, unspecified migraine type (CMS/HCC) Take 1 tablet (25 mg) by mouth every 6 (six) hours if needed for nausea or vomiting 15 tablet 2 12/13/2023 Active rimegepant 75 mg disintegrating oral tablet (10 sources) Start: 12-02-2023 End: 07-24-2024 take 1 tablet by mouth every other day for headache Nurtec 75 MG tablet dispersible TAKE 1 TABLET BY MOUTH EVERY OTHER DAY FOR HEADACHE PREVENTION 12/02/2023 07/24/2024 Discontinued (Therapy completed) rizatriptan 10 mg oral tablet (17 sources) Serotonin-1b and Serotonin-1d Receptor Agonist Start: 01-31-2024 take 1 tablet by mouth every two hours Rizatriptan Active 0 PO .January 31, 2024 12:00am take 1 tab at onset of headache; if no relief may repeat 1 tab after at least 2 hrs; max = 3 tabs/24 hr PO Start: 12-13-2023 End: 07-24-2024 rizatriptan (Maxalt) 10 MG t ablet Indications: Migraine without status migrainosus, not intractable, unspecified migraine type (CMS/HCC) Take 1 tablet (10 mg) by mouth if needed for migraine 9 tablet 3 07/24/2024 Active Semaglutide Base (3 sources) Start: 01-31-2024 inject 1 mL by subcutaneous injection every week Semaglutide Base Active 0.25 ML SUBCUT every week January 31, 2024 12:00am [facility] Pre-filled Syringes using Semaglutide Base. Dispense 1 mL = (Four 0.25 mL pre-filled syringes) SEMAGLUTIDE,0.25 OR 0.5MG/DOS, SC (7 sources) Start: 07-03-2024 SEMAGLUTIDE,0. 25 OR 0.5MG/DOS, SC Compounded 07/03/2024 Active Problems Active Problems Problem Classification Problem Date Documented Da te Episodic/Chronic Anxiety disorders (20 sources) Anxiety; Translations: [Anxiety disorder, unspecified] Onset: 3 01-31-2024 Chronic Disorders of lipid metabolism (20 sources) Hypertriglyceridemia; Translations: [Pure hyperglyceridemia] Onset: 3 01-31-2024 Chronic Endometriosis (12 sources) Endometriosis (clinical); Translations: [Endometriosis, unspecified] Onset: 3 06-24-2023 Chronic Esophageal disorders (14 sources) Gastroesophageal reflux disease; Translations: [Gastro-esophageal reflux disease without esophagitis] Onset: 3 06-24-2023 Chronic Essential hypertension (20 sources) Hypertensive disorder; Translations: [Essential (primary) hypertension] Onset: 3 01-31-2024 Chronic Headache; including migraine (18 sources) Migraine; Translations: [Migraine, unspecified, not intractable, without status migrainosus] Onset: 3 01-31-2024 Chronic Malaise and fatigue (4 sources) Fatigue; Translations: [Other fatigue] 01-31-2024 Episodic Mood disorders (18 sources) Depressive disorder; Translations: [Depression] Onset: 3 01-31-2024 Chronic Nutritional deficiencies (14 sources) Vitamin D deficiency; Translations: [Vitamin D deficiency, unspecified] Onset: 3 06-24-2023 Chronic Other endocrine disorders (18 sources) Polycystic ovary syndrome; Translations: [Polycystic ovarian syndrome] Onset: 3 01-31-2024 Chronic Other endocrine disorders (2 sources) Polycystic ovarian syndrome; Translations: [Polycystic ovaries] 01-31-2024 Chronic Other female genital disorders (12 sources) Premenstrual tension syndrome; Translations: [Premenstrual tension syndrome] Onset: 3 06-24-2023 Chronic Other gastrointestinal disorders (14 sources) Irritable bowel syndrome; Translations: [Irritable bowel syndrome without diarrhea] Onset: 3 06-24-2023 Chronic Other gastrointestinal disorders (4 sources) Heartburn; Translations: [Heartburn] 01-31-2024 Episodic Other gastrointestinal disorders (2 sources) Heartburn; Translations: [Heartburn] 01-31-2024 Episodic Other inflammatory condition of skin (2 sources) Itching ; Translations: [Pruritus, unspecified] 07-17-2024 Episodic Other liver diseases (14 sources) Steatosis of liver; Translations: [Fatty (change of) liver, not elsewhere classified] Onset: 3 06-24-2023 Chronic Other lower respiratory disease (4 sources) Snoring; Translations: [Snoring] 01-31-2024 Episodic Other lower respiratory disease (2 sources) Snoring; Translations: [Other respiratory abnormalities] 01-31-2024 Episodic Other nutritional; endocrine; and metabolic disorders (15 sources) Body mass index 40+ - severely obese; Translations: [Body mass index (BMI) 40.0-44.9, adult] Onset: 3 03-20-2024 Chronic Other nutritional; endocrine; and metabolic disorders (1 source) Body mass index (BMI) 40.0-44.9, adult; Translations: [Body Mass Index 40.0-44.9, adult] 03-20-2024 Chronic Other nutritional; endocrine; and metabolic disorders (14 sources) Hypomagnesemia; Translations: [Hypomagnesemia] Onset: 3 06-24-2023 Chronic Other nutritional; endocrine; and metabolic disorders (12 sources) Metabolic syndrome X; Translations: [Metabolic syndrome] Onset: 3 06-24-2023 Chronic Other nutritional; endocrine; and metabolic disorders (3 sources) Abnormal weight gain; Translations: [Abnormal weight gain] 01-31-2024 Episodic Other nutritional; endocrine; and metabolic disorders (2 sources) Abnormal weight gain; Translations: [Abnormal weight gain] 01-31-2024 Episodic Other screening for suspected conditions (not mental disorders or infectious disease) (6 sources) Encounter for screening mammogram for malignant neoplasm of breast; Translations: [Patient encounter status] Onset: 2 Episodic Other upper respiratory disease (12 sources) Non-allergic rhinitis; Translations: [Chronic rhinitis] Onset: 3 06-24-2023 Chronic Residual codes; unclassified (1 source) Family history of malignant neoplasm of breast; Translations: [FAMILY HX MALIG NEOPLASM OF BREAST] Onset: 2 Episodic Spondylosis; intervertebral disc disorders; other back problems (20 sources) Degeneration of cervical intervertebral disc; Translations: [Other cervical disc degeneration, unspecified cervical region] Onset: 3 06-24-2023 Chronic Spondylosis; intervertebral disc disorders; other back problems (4 sources) Low back pain; Translations: [Low back pain] 01-31-2024 Episodic Thyroid disorders (20 sources) Hypothyroidism; Translations: [Hypothyroidism, unspecified] Onset: 3 01-31-2024 Chronic Past or Other Problems Problem Classification Problem Date Documented Da te Episodic/Chronic Diabetes mellitus without complication (20 sources) Prediabetes; Translations: [Prediabetes] Onset: 06-24-2023 01-31-2024 Episodic Fluid and electrolyte disorders (12 sources) Hypokalemia; Translations: [Hypokalemia] Onset: 11-05-2022 Resolved: 07-24-2024 06-24-2023 Episodic Nonspecific chest pain (12 sources) Chest pain; Translations: [Chest pain, unspecified] Onset: 06-16-2021 Resolved: 06-28-2023 06-28-2023 Episodic Other connective tissue disease (18 sources) Fibromyalgia; Translations: [Fibromyalgia] Onset: 06-24-2023 01-31-2024 Episodic Results Test Name Value Interpretation Reference Range Facil ity IGP,APTIMA HPV,AGE GDLNon AGE GDLN ACOG TESTING Note . [facility] Comment on above: TESTS RESULT FLAG UNITS REF RANGE LAB Clinician Provided Cytology Information Source.............Cervix;Endocervix No. of containers..01 ThinPrep Vial Age Algo ACOG Mary... 29 01 FLAG LEGEND: L-Low Normal,H-High Normal,LL-Alert Low,HH-Alert High <-Panic Low,>-Panic High,A-Abnormal,AA-Critical Abnormal Performed at: 01 =G [address] [address] Rubina Barrios MD, HPV APTIMA Negative Negative [facility] e Comment on above: This nucleic acid amplification test det ects fourteen high- risk HPV types (16,18,31,33,35,39,45,51,52,56,58,59,66,68) without differentiation. Performed at: =G - [facility] [id number] Research Environmental Engineer: Rubina Barrios MD, Phone: [phone] Performed at: - [facility] [id number] Research Environmental Engineer: Rubina Barrios MD, Phone: [phone] IGP, APTIMA HPV, RFX 16/18,45 Note . [facility] Comment on above: TESTS RESULT FLAG UNITS REF RANGE LAB DIAGNOSIS: 02 NEGATIVE FOR INTRAEPITHELIAL LESION OR MALIGNANCY. Specimen adequacy: 02 Satisfactory for evaluation. Endocervical and/or squamous metaplastic cells (endocervical component) are present. Areas of partially obscuring inflammatory exudate are present. Performed by: Russell Shelton, Agency Cashier ([facility]) . 02 Note: Note 02 The Pap smear is a screening test designed to aid in the detection of premalignant and malignant conditions of the uterine cervix. It is not a diagnostic procedure and should not be used as the sole means of detecting cervical cancer. Both false-positive and false-negative reports do occur. Test Methodology: Note 02 The [employer] Prep[employer]R) Wool Carder was unable to read this specimen. Therefore a manual review was performed. FLAG LEGEND: L-Low Normal,H-High Normal,LL-Alert Low,HH-Alert High <-Panic Low,>-Panic High,A-Abnormal,AA-Critical Abnormal Performed at: 02 WB [facility] [address], [place] [address] Rubina Barrios MD, HPV Genotype Reflex Note 02 Criteria not met, HPV Genotype not performed. Criteria not met, HPV Genotype not performed. BRUSH-SPATULA CERVIX ENDOCERVIX [facility] Cervical or vaginal smear or scraping studyon 05-10-2023 [facility] MG MAMM SCREEN 3D ANGÉLICA CADon 08-03-2022 MG MAMM SCREEN 3D ANGÉLICA CAD Patient: CHANDA STEVE Exam Date: 08/03/2022 : 1975 Gender:F Ordering : DR RADHA MENA . Admission #: [id number] Family : Order #: [id number] CLICK HERE TO VIEW EXAM RADIOLOGY REPORT [...] breast cancer at age 49. LOCATION: [facility] BREAST COMPOSITION: Heterogeneously dense,which may obscure [...] Hoyos MD on 08/03/2022 at 12:[address] [facility] Q - CULTURE,URINE,ROUTINEon 12-10-2021 CULTURE, URINE, ROUTINE SEE NOTE Normal [facility] Workers Compensation Coordinator Comment on above: Order Comment: [facility] Testing performed at: QPT, [facility], [address], [address] [facility], [place], [address], Silk Screen Printer Helper: Freddy Garcia MD [facility] Collection Date/Time: [id number] [facility] Results Received Date/Time: [facility] Reported Date/Time: Result Comment: CULT URE, URINE, ROUTINE Micro Number: [id number] Test Status: Final Specimen Source: Urine Specimen Quality: Adequate Result: No Growth Performed By: #### [id number] #### [facility] Laboratory Default [address] [place] [address] XR Abdomen Single View (KUB) *on 12-10-2021 [...] by Ramses Alvarez on 12/11/2021 0656 Normal [facility] Workers Compensation Coordinator Vital Signs Date Time Vital Sign Value Performing Clinician Facility 07-24-2024 09:35-0500 Body height 158.8 cm Shakila Gaxiola MD Work Phone: [facility] 07-24-2024 09:35-0500 Body mass index (BMI) [Ratio] 40.32 kg/m2 Shakila Gaxiola MD Work Phone: [facility] 07-24-2024 09:35-0500 Body weight 101.61 kg Shakila Gaxiola MD Work Phone: [facility] 07-24-2024 09:35-0500 Diastolic blood pressure 84 mm[Hg] Shakila Gaxiola MD Work Phone: [facility] 07-24-2024 09:35-0500 Heart rate 84 /min Shakila Gaxiola MD Work Phone: [facility] 07-24-2024 09:35-0500 Systolic blood pressure 130 mm[Hg] Shakila Gaxiola MD Work Phone: [facility] 07-17-2024 10:21-0500 Body mass index (BMI) [Ratio] 38.88 kg/m2 Kate Sarahy PA Work Phone: [facility] 07-17-2024 10:21-0500 Body weight 101.15 kg Kate Bradleyey PA Work Phone: [facility] 07-17-2024 10:21-0500 Diastolic blood pressure 72 mm[Hg] Kate Bradleyey PA Work Phone: [facility] 07-17-2024 10:21-0500 Systolic blood pressure 122 mm[Hg] Kate Prieto PA Work Phone: [facility] 05-15-2024 10:03-0400 Body height 160.02 cm [facility] 05-15-2024 10:03-0400 Body mass index (BMI) [Ratio] 40.4 kg/m2 [facility] 05-15-2024 10:03-0400 Body weight 103.67 kg [facility] 05-15-2024 10:03-0400 Diastolic blood pressure 81 mm[Hg] [facility] 05-15-2024 10:03-0400 Heart rate 88 /min [facility] 05-15-2024 10:03-0400 Respiratory rate 18 /min [facility] 05-15-2024 10:03-0400 SaO2% (BldA) [Mass fraction] 100 % [facility] 05-15-2024 10:03-0400 Systolic blood pressure 118 mm[Hg] [facility] 03-20-2024 08:25-0400 Body height 160.02 cm [facility] 03-20-2024 08:25-0400 Body mass index (BMI) [Ratio] 41.6 kg/m2 [facility] 03-20-2024 08:25-0400 Body weight 106.67 kg [facility] 03-20-2024 08:25-0400 Diastolic blood pressure 86 mm[Hg] [facility] 03-20-2024 08:25-0400 Heart rate 74 /min [facility] 03-20-2024 08:25-0400 Respiratory rate 16 /min [facility] 03-20-2024 08:25-0400 SaO2% (BldA) [Mass fraction] 100 % [facility] 03-20-2024 08:25-0400 Systolic blood pressure 127 mm[Hg] [facility] 01-31-2024 08:14-0400 Body height 160.02 cm [facility] 01-31-2024 08:14-0400 Body mass index (BMI) [Ratio] 44.1 kg/m2 [facility] 01-31-2024 08:14-0400 Body weight 112.94 kg [facility] 01-31-2024 08:14-0400 Diastolic blood pressure 88 mm[Hg] [facility] 01-31-2024 08:14-0400 Heart rate 77 /min [facility] 01-31-2024 08:14-0400 Respiratory rate 16 /min [facility] 01-31-2024 08:14-0400 SaO2% (BldA) [Mass fraction] 98 % [facility] 01-31-2024 08:14-0400 Systolic blood pressure 134 mm[Hg] [facility] Encounters Encounter Date Encounter Type Care Provider Facility Start: 08-28-2024 End: 08-28-2024 Refill Shakila Gaxiola MD Work Phone: [facility] Comment on above: Essential hypertensi on (CMS/HCC) Start: 08-14-2024 End: 08-14-2024 Bamboo flowsheet Kate SPARKS Work Phone: [facility] Start: 08-14-2024 End: 08-14-2024 Bamboo flowsheet Kate SPARKS Work Phone: [facility] Start: 08-14-2024 End: 08-14-2024 ambulatory KATE PRIETO Not Available Start: 08-14-2024 End: 08-14-2024 Online digital e/m svc est pt <7 d 5-10 minutes Kate SPARKS Work Phone: [facility] Comment on above: Well woman exam with routine gynecological exam (Primary Dx) Start: 08-14-2024 End: 08-14-2024 Patient encounter procedure Kate SPARKS Work Phone: [facility] Work Phone: Start: 08-02-2024 End: 08-02-2024 Refill Shakila Gaxiola MD Work Phone: [facility] Comment on above: Hypothyroidism, unsp ecified type (CMS/HCC) Start: 07-24-2024 End: 07-24-2024 Bamboo flowsheet Shakila Gaxiola MD Work Phone: [facility] Start: 07-24-2024 End: 07-24-2024 Bamboo [employer] Records Internationalheet Shakila Gaxiola MD Work Phone: [facility] Start: 07-24-2024 End: 07-24-2024 Patient encounter status Shakila Gaxiola MD Work Phone: [facility] Start: 07-24-2024 End: 07-24-2024 Periodic preventive med est patient 40-64yrs Shakila Gaxiola MD Work Phone: [facility] Comment on above: Well adult exam (Nury shakila Dx); Essential hypertension (CMS/HCC); Fatty liver; Gastroesophageal reflux disease, unspecified whether esophagitis present; Irritable bowel syndrome with both constipation and diarrhea; DDD (degenerative disc disease), cervical; Fibromyalgia; Hypothyroidism, unspecified type (CMS/HCC); Impaired fasting glucose; PCOS (polycystic ovarian syndrome); Vitamin D deficiency; Hypomagnesemia; Pure hypertriglyceridemia (CMS/HCC); Body mass index (BMI) of 40.1 to 44.9 in adult (CMS/HCC); Degeneration of intervertebral disc of lumbar region without discogenic back pain or lower extremity pain; Migraine without status migrainosus, not intractable, unspecified migraine type (CMS/HCC) Start: 07-24-2024 End: 07-24-2024 ambulatory SHAKILA GAXIOLA Not Available Start: 07-17-2024 End: 07-17-2024 Bamboo flowsheet Kate SPARKS Work Phone: [facility] Start: 07-17-2024 End: 07-25-2024 Bamboo flowsheet Kate SPARKS Work Phone: [facility] Start: 07-17-2024 End: 07-25-2024 [facility] Result Encounter Generic External Data Provider [facility] Unsolicited Start: 07-17-2024 End: 07-17-2024 Patient encounter procedure Kate SPARKS Work Phone: [facility] Start: 07-17-2024 End: 07-17-2024 Periodic preventive med est patient 40-64yrs Kate SPARKS Work Phone: [facility] Comment on above: Itching (Primary Dx) ; Well woman exam with routine gynecological exam; Breast cancer screening by mammogram Start: 07-17-2024 End: 07-17-2024 ambulatory KATE PRIETO Not Available Start: 05-15-2024 End: 05-15-2024 ambulatory [facility] Work Phone: Start: 05-15-2024 End: 05-15-2024 Patient encounter procedure [facility] Work Phone: Start: 03-20-2024 End: 03-20-2024 ambulatory [facility] Work Phone: Start: 03-20-2024 End: 03-20-2024 Patient encounter procedure [facility] Work Phone: Start: 02-22-2024 End: 02-22-2024 ambulatory [facility] Work Phone: Start: 02-22-2024 End: 02-22-2024 Patient encounter procedure [facility] Work Phone: Start: 02-09-2024 End: 02-09-2024 ambulatory SHAKILA GAXIOLA Not Available Start: 01-31-2024 End: 01-31-2024 ambulatory [facility] Work Phone: Start: 01-31-2024 End: 01-31-2024 Patient encounter procedure [facility] Work Phone: Start: 11-25-2023 Non-patient / Non-visit [facility] Work Phone: Start: 11-08-2023 End: 11-08-2023 ambulatory HAYLEY PUMP Not Available Start: 08-03-2022 End: 08-04-[address] RADHA MENA Facility:[facility] Procedures Date Procedure Procedure Detail Performing Clinician Start: 07-17-2024 IGP,APTIMA HPV,AGE GDLN Kate SPARKS Work Phone: Start: 07-17-2024 Microscopic observat ion [Identifier] in Cervix by Cyto stain Shakila Gaxiola MD Work Phone: Start: 08-09-2023 Mammography Kate SPARKS Work Phone: Start: 05-10-2023 Microscopic observat ion [Identifier] in Cervix by Cyto stain Kate SPARKS Work Phone: Start: 05-10-2023 Cytp cerv/vag auto t hin layer prep mnl screen Kate SPARKS Work Phone: Start: 02-03-2016 Colonoscopy Kate SPARKS Work Phone: Plan of Treatment Date Care Activity Detail Author Start: 05-10-2028 Screening for malignant neoplasm of cervix [facility] Start: 07-17-2027 Screening for malignant neoplasm of cervix Pap Smear [facility] Start: 02-02-2026 Screening for malignant neoplasm of colon [facility] Start: 07-30-2025 End: 07-30-2025 Patient encounter procedure [facility] Start: 09-18-2024 Influenza vaccination Influenza Vaccine (#1) [facility] Comment on above: Postponed from 04/30/2024 (Patient Refus ed) Start: 08-14-2024 End: 08-14-2024 Patient encounter procedure 08/14/2024 9:50 AM EST Office Visit [facility] [address] [id number] Kate Prieto PA [address] [place], [place] [id number] [facility] Start: 08-09-2024 Screening for malignant neoplasm of breast Mammogram [facility] Start: 07-24-2024 End: 07-24-2024 Patient encounter procedure [facility] Comment on above: Well adult exam (Primary Dx); Essential hypertension (CMS/HCC); Fatty liver; Gastroesophageal reflux disease, unspecified whether esophagitis present; Irritable bowel syndrome with both constipation and diarrhea; DDD (degenerative disc disease), cervical; Fibromyalgia; Hypothyroidism, unspecified type (CMS/HCC); Impaired fasting glucose; PCOS (polycystic ovarian syndrome); Vitamin D deficiency; Hypomagnesemia; Migraine without aura and without status migrainosus, not intractable (CMS/HCC); Pure hypertriglyceridemia (CMS/HCC) Start: 07-17-2024 End: 09-16-2025 MG Breast - bilateral Screening Bilateral screening mammogram Imaging Routine Breast cancer screening by mammogram Expected: 07/17/2024 (Approximate), Expires: 09/16/2025 [facility] Work Phone: Comment on above: Expected: 07/17/2024 (Approximate), Expi res: 09/16/2025 Start: 04-30-2024 Influenza vaccination Influenza Vaccine (#1) [facility] Start: 1975 Screening for malignant neoplasm of colon [facility] THIN PREP TIS PAP AN D HR HPV DNA THIN PREP TIS PAP AND HR HPV DNA Pathology and Cytology Routine Well woman exam with routine gynecological exam Ordered: 07/17/2024 [facility] Comment on above: Ordered: 07/17/2024 Immunizations Immunization Date Immunization Notes Care Provider [facility] 06-09-2019 influenza, injectabl e, quadrivalent, preservative free Kate SPARKS Work Phone: [facility] 06-09-2019 influenza virus vacc ine, unspecified formulation Kate SPARKS Work Phone: [facility] 05-16-2018 influenza, injectabl e, quadrivalent, preservative free Kate SPARKS Work Phone: [facility] 06-22-2017 influenza, injectabl e, quadrivalent, preservative free Kate SPARKS Work Phone: [facility] 06-11-2016 influenza, injectabl e, quadrivalent, preservative free Kate SPARKS Work Phone: [facility] 07-06-2014 influenza, injectabl e, quadrivalent, preservative free Kate SPARKS Work Phone: [facility] 07-19-2010 tetanus toxoid, redu chana diphtheria toxoid, and acellular pertussis vaccine, adsorbed Kate SPARKS Work Phone: [facility] Healthcare Payers Date Payer Category Payer Private Health Insurance [employer] [id number] 1974 Unknown [id number] 1974 Unknown [id number] 1974 Unknown [id number] 1974 Unknown [id number] 1974 Unknown [id number] 1974 Unknown [id number] 1959 Unknown [id number] 1959 Unknown [id number] Social History Date Type Detail Facility Start: 01-31-2024 End: 07-24-2024 Tobacco smoking status NHIS Never smoked tobacco (finding) [facility] Start: 1975 Sex Assigned At Female [facility] Start: 02-14-2023 End: 07-24-2024 Tobacco use and exposure Smokeless tobacco non-user [facility] Start: 07-17-2024 End: 07-24-2024 Alcoholic beverage intake Current drinker of alcohol (finding) [facility] Start: 06-28-2023 End: 07-24-2024 History of Social function [facility] Start: 06-28-2023 End: 07-24-2024 Alcohol Use Disorder Identification Test - Consumption [AUDIT-C] [facility] How often to you hav e a drink containing alcohol? Monthly or less [facility] How many standard dr inks containing alcohol do you have on a typical day? 1 or 2 [facility] How often do you hav e 6 or more drinks on 1 occasion? Never [facility] Start: 02-14-2023 Alcohol Comment Alcohol: 1-2 drinks/monthly or less [facility] Start: 1975 Sex assigned at Not on file [facility] Start: 11-11-2022 Gender identity Identifies as female gender (finding) [facility] History of tobacco use Passive smoker [facility] Start: 07-24-2024 Alcoholic beverage intake Ex-drinker (finding) [facility] Clinical Notes 01-31-2024 to 08-14-2024 BRIDGER Hernandez - 08/14/2024 9:50 AM Karrie Gaxiola MD - 07/24/2024 9:30 AM BRIDGER Valdez - 07/17/2024 10:00 AM EST Note Date & Type Note Facility 08-14-2024 History of Presen t illness Narrative 5Reason for Appointment: Patient ID: hCanda Steve is a 48 y.o. female who presents for No chief complaint on file. Patient presents today via telephone call for a telehealth appointment. Patients Phone #: [phone] (mobile) Current Medications: has a current medication list which includes the following prescription(s): citalopram, famotidine, levothyroxine, lisinopril-hydrochlorothiazide, metformin, promethazine, rizatriptan, and semaglutide. Medical History: Active Ambulatory Problems Diagnosis Date Noted Anxiety disorder 06/24/2023 OCD (obsessive compulsive disorder) ([facility]) 06/24/2023 Migraine without status migrainosus, not intractable ([facility]) 11/02/2022 Body mass index (BMI) of 40.1 to 44.9 in adult ([facility]) 06/24/2023 DDD (degenerative disc disease), cervical 06/24/2023 DDD (degenerative disc disease), lumbar 06/24/2023 Depressive disorder ([facility]/HCC) 06/24/2023 Endometriosis 06/24/2023 Essential hypertension ([facility]/HCC) 06/24/2023 Fatty liver 06/24/2023 Fibromyalgia 06/24/2023 GERD (gastroesophageal reflux disease) 06/24/2023 Hypomagnesemia 11/02/2022 Hypothyroidism, unspecified ([facility]) 06/24/2023 IBS (irritable bowel syndrome) 06/24/2023 Impaired fasting glucose 06/24/2023 Metabolic syndrome 06/24/2023 Non-allergic rhinitis 06/24/2023 PCOS (polycystic ovarian syndrome) 06/24/2023 PMS (premenstrual syndrome) 06/24/2023 Pure hypertriglyceridemia ([facility]) 06/24/2023 Vitamin D deficiency 06/24/2023 Well adult exam 07/24/2024 Resolved Ambulatory Problems Diagnosis Date Noted Chest pain 06/16/2021 Hypokalemia 11/05/2022 Past Medical History: Diagnosis Date Anxiety BMI 39.0-39.9,adult BPPV (benign paroxysmal positional vertigo) Carpal tunnel syndrome Depression ([facility]) History of screening mammography 08/03/2022 HTN (hypertension) (CMS/HCC) Hypertriglyceridemia (CMS/HCC) Hypothyroidism ([facility]) Maxillary sinusitis, unspecified chronicity Meniere's disease Menorrhagia with irregular cycle Migraines (CMS/[facility]) Mood changes Morbid obesity with BMI of 40.0-44.9, adult (CMS/[facility]) Nasal polyp Nonsmoker Obesity (BMI 30-39.9) Pelvic pain in female Recurrent sinus infections Renal calculi Thyroid disease (CMS/[facility]) Tonsillitis 1984 Family History Problem Relation Name Age of Onset Hypertension Mother Hypothyroidism Mother Depression Mother major depression Heart disease Mother COPD Father Other (Degenerative Disc Disease (DDD)) Father Hypertension Father Hypertension Sister Polycystic ovary syndrome Sister Heart disease Maternal Grandmother Lung cancer Paternal Grandmother Colon cancer Paternal Grandfather Social History Tobacco Use Smoking status: Never Passive exposure: Past Smokeless tobacco: Never Vaping Use Vaping status: Never Used Substance Use Topics Alcohol use: Not Currently Alcohol/week: 0.0 - 1.0 standard drinks of alcohol Comment: Alcohol: 1-2 drinks/monthly or less Drug use: Never Past Surgical History: Procedure Laterality Date CARPAL TUNNEL RELEASE Right 06/27/2015 DR GARRIDO CARPAL TUNNEL RELEASE Left 08/01/2015 DR GARRIDO CHOLECYSTECTOMY 2005 COLONOSCOPY 03/28/2009 CYSTOSCOPY 09/24/2011 Dr. Nelson CYSTOSCOPY 03/17/2017 ureteroscope stone extraction - Dr. Nelson DILATION AND CURETTAGE 2012 ENDOMETRIAL BIOPSY 05/2019 EXTRACORPOREAL SHOCK WAVE LITHOTRIPSY 12/10/2014 Dr. Breezy Nelson/INBEP LITHOTRIPSY 2008 X2 VA TONSILLECTOMY & ADENOIDECTOMY <AGE 11 1984 SINUS SURGERY 2016 SINUSOTOMY 07/02/2008 Maxillary sinusotomy Allergies Allergen Reactions Avelox [Moxifloxacin] GI intolerance Heart racing Bactrim [Sulfamethoxazole-Trimethoprim] Other Joint pain, lips tingle, eyes itch Biaxin [Clarithromycin] Diarrhea jittery Hydrocodone-Acetaminophen Unknown and Itching Macrobid [Nitrofurantoin] Dizziness Oxycodone Unknown Sulfa Antibiotics Zofran [Ondansetron] Headache Iodinated Contrast Media Rash and Unknown Iodine Rash Vitals: Estimated body mass index is 40.32 kg/m as calculated from the following: Height as of 07/24/24: 5' 2.5 . Weight as of 07/24/24: 224 lb. BP: Patient's last menstrual period was 07/07/2024 (approximate). Assessment/Plan No diagnosis found. Today's telehealth visit consisted of spending 5 minutes talking to patient on the phone. Patient states itching has improved and she has been using a product called wild yam cream that helped with itching from balancing 4 elements Patient will reach notify office if symptoms return or follow up during her annual. Yearly mammogram scheduled for next several weeks Documented by BRIDGER Hernandez on behalf of: BRIDGER Hernandez documented in this encounter [facility] 07-24-2024 History of Presen t illness Narrative Images from the original note were not included. Chanda Steve is a 48 y.o. female presents with chief complaint of Annual Exam HPI: HPI Pt is here for her wellness exam. Pt is having some menopausal symptoms and is seeing TRANSIT MIXER DRIVER. Pt is having irregular menses. Nausea and headache with menses. Pt is getting itching of her nipples. Is now on a steroid cream. Pt is having some hot flashes. SUBJECTIVE: MEDICATIONS: Current Outpatient Medications Medication Instructions citalopram (CELEXA) 20 mg, Oral, Daily desonide (DesOwen) 0.05 % ointment Topical, 2 times daily PRN famotidine (Pepcid) 20 MG tablet Take by mouth levothyroxine (Synthroid, Levoxyl) 125 MCG tablet TAKE 1 TABLET DAILY ON AN EMPTY STOMACH lisinopril-hydroCHLOROthiazide 20-25 MG tablet 1 tablet, Oral, Daily metFORMIN (Glucophage) 500 MG tablet TAKE 1 TABLET DAILY WITH A MEAL promethazine (PHENERGAN) 25 mg, Oral, Every 6 hours PRN rizatriptan (MAXALT) 10 mg, Oral, As needed SEMAGLUTIDE,0.25 OR 0.5MG/DOS, SC Compounded ALLERGIES: Allergies Allergen Reactions Avelox [Moxifloxacin] GI intolerance Heart racing Bactrim [Sulfamethoxazole-Trimethoprim] Other Joint pain, lips tingle, eyes itch Biaxin [Clarithromycin] Diarrhea jittery Hydrocodone-Acetaminophen Unknown and Itching Macrobid [Nitrofurantoin] Dizziness Oxycodone Unknown Sulfa Antibiotics Zofran [Ondansetron] Headache Iodinated Contrast Media Rash and Unknown Iodine Rash History: Past Medical History: Diagnosis Date Anxiety BMI 39.0-39.9,adult BPPV (benign paroxysmal positional vertigo) Carpal tunnel syndrome Chest pain 06/16/2021 Depression (CMS/HCC) Fatty liver GERD (gastroesophageal reflux disease) History of screening mammography 08/03/2022 negative HTN (hypertension) (CMS/HCC) Hypertriglyceridemia (CMS/HCC) Hypothyroidism (CMS/HCC) Maxillary sinusitis, unspecified chronicity Meniere's disease Menorrhagia with irregular cycle Migraines (CMS/HCC) Mood changes Morbid obesity with BMI of 40.0-44.9, adult ([facility]) Nasal polyp Nonsmoker Obesity (BMI 30-39.9) PCOS (polycystic ovarian syndrome) Pelvic pain in female Recurrent sinus infections Renal calculi Thyroid disease ([facility]) Tonsillitis 1983 Past Surgical History: Procedure Laterality Date CARPAL TUNNEL RELEASE Right 06/27/2015 DR GARRIDO CARPAL TUNNEL RELEASE Left 08/01/2015 DR GARRIDO CHOLECYSTECTOMY 2005 COLONOSCOPY 03/28/2009 CYSTOSCOPY 09/24/2011 Dr. Nelson CYSTOSCOPY 03/17/2017 ureteroscope stone extraction - Dr. Nelson DILATION AND CURETTAGE 2012 ENDOMETRIAL BIOPSY 05/2019 EXTRACORPOREAL SHOCK WAVE LITHOTRIPSY 12/10/2014 Dr. Breezy Nelson/INBEP LITHOTRIPSY 2007 X2 VA TONSILLECTOMY & ADENOIDECTOMY <AGE 11 1984 SINUS SURGERY 2016 SINUSOTOMY 07/02/2008 Maxillary sinusotomy Family History Problem Relation Name Age of Onset Hypertension Mother Hypothyroidism Mother Depression Mother major depression Heart disease Mother COPD Father Other (Degenerative Disc Disease (DDD)) Father Hypertension Father Hypertension Sister Polycystic ovary syndrome Sister Heart disease Maternal Grandmother Lung cancer Paternal Grandmother Colon cancer Paternal Grandfather Social History Socioeconomic History Marital status: Spouse name: Not on file Number of children: Not on file Years of education: Not on file Highest education level: Not on file Occupational History Not on file Tobacco Use Smoking status: Never Passive exposure: Past Smokeless tobacco: Never Vaping Use Vaping status: Never Used Substance and Sexual Activity Alcohol use: Not Currently Alcohol/week: 0.0 - 1.0 standard drinks of alcohol Comment: Alcohol: 1-2 drinks/monthly or less Drug use: Never Sexual activity: Yes control/protection: None Other Topics Concern Not on file Social History Narrative Not on file Social Drivers of Health Financial Resource Strain: Not on file Food Insecurity: Not on file Transportation Needs: Not on file Physical Activity: Not on file Stress: Not on file Social Connections: Not on file Intimate Partner Violence: Not on file Housing Stability: Not on file I have reviewed and reconciled the history and medication list with the patient today. REVIEW OF SYMPTOMS: Review of Systems Constitutional: Positive for fatigue (with periods). Negative for chills and fever. HENT: Negative for congestion and sore throat. Breasts: Nipple itching Respiratory: Negative for cough and shortness of breath. Cardiovascular: Negative for chest pain, palpitations and leg swelling. Gastrointestinal: Negative for abdominal pain, constipation, diarrhea, nausea (with menses) and vomiting. Genitourinary: Negative for difficulty urinating and dysuria. Irregular periods. Musculoskeletal: Negative. Skin: Negative. Negative for rash. Neurological: Positive for headaches (with menses). Negative for dizziness and light-headedness. Psychiatric/Behavioral: Negative for dysphoric mood. OBJECTIVE: 05/10/2023 9:22 AM 06/10/2023 4:03 PM 06/28/2023 9:01 AM 11/08/2023 1:31 PM 02/09/2024 2:09 PM 07/17/2024 10:21 AM 07/24/2024 9:35 AM Vitals BMI 43.47 kg/m2 43.08 kg/m2 42.58 kg/m2 38.88 kg/m2 40.32 kg/m2 BSA (m2) 2.22 m2 2.21 m2 2.23 m2 2.13 m2 2.12 m2 Systolic 120 140 134 122 142 122 130 Diastolic 78 90 84 76 88 72 84 Heart Rate 76 68 86 76 84 SpO2 99 % Temp 98.1 F 98.2 F Height (in) 5' 3 5' 3.5 5' 2.5 Weight (lb) 245.4 243.2 244.2 223 224 Visit Report Report Report Report Report Report Report Report Recent Results (from the past 8 weeks) Comprehensive metabolic panel Collection Time: 07/14/24 8:55 AM Result Value Ref Range Glucose 91 65 - 99 mg/dL BUN 14 7 - 25 mg/dL Creatinine 0.72 0.50 - 0.99 mg/dL EGFR 102 > OR = 60 mL/min/1.73m2 BUN/CREATININE RATIO SEE NOTE: 6 - 22 (calc) Sodium 138 135 - 146 mmol/L Potassium, Bld 4.1 3.5 - 5.3 mmol/L Chloride 104 98 - 110 mmol/L Carbon Dioxide 28 20 - 32 mmol/L Calcium 10.3 (H) 8.6 - 10.2 mg/dL PROTEIN, TOTAL 6.5 6.1 - 8.1 g/dL ALBUMIN 4.2 3.6 - 5.1 g/dL GLOBULIN 2.3 1.9 - 3.7 g/dL (calc) ALBUMIN/GLOBULIN RATIO 1.8 1.0 - 2.5 (calc) BILIRUBIN, TOTAL 0.5 0.2 - 1.2 mg/dL ALKALINE PHOSPHATASE 64 31 - 125 U/L AST 16 10 - 35 U/L ALT 19 6 - 29 U/L Vitamin D 25 hydroxy Collection Time: 07/14/24 8:55 AM Result Value Ref Range VITAMIN D,25-OH,TOTAL,IA 65 30 - 100 ng/mL Lipid panel Collection Time: 07/14/24 8:55 AM Result Value Ref Range CHOLESTEROL, TOTAL 167 <200 mg/dL HDL CHOLESTEROL 50 > OR = 50 mg/dL TRIGLYCERIDES 234 (H) <150 mg/dL LDL-CHOLESTEROL 85 mg/dL (calc) CHOL/HDLC RATIO 3.3 <5.0 (calc) NON HDL CHOLESTEROL 117 <130 mg/dL (calc) Magnesium Collection Time: 07/14/24 8:55 AM Result Value Ref Range MAGNESIUM 1.8 1.5 - 2.5 mg/dL TSH Collection Time: 07/14/24 8:55 AM Result Value Ref Range TSH 1.11 mIU/L T4, free Collection Time: 07/14/24 8:55 AM Result Value Ref Range T4, FREE 1.3 0.8 - 1.8 ng/dL Hemoglobin A1c Collection Time: 07/14/24 8:55 AM Result Value Ref Range Hemoglobin A1C 5.4 <5.7 % of total Hgb Physical Exam Vitals and nursing note reviewed. Constitutional: General: She is not in acute distress. Appearance: Normal appearance. She is obese. She is not ill-appearing, toxic-appearing or diaphoretic. HENT: Head: Normocephalic and atraumatic. Mouth/Throat: Mouth: Mucous membranes are moist. Eyes: Conjunctiva/sclera: Conjunctivae normal. Cardiovascular: Rate and Rhythm: Normal rate and regular rhythm. Heart sounds: No murmur heard. Pulmonary: Effort: Pulmonary effort is normal. No respiratory distress. Breath sounds: Normal breath sounds. No wheezing or rhonchi. Abdominal: General: Bowel sounds are normal. There is no distension. Palpations: Abdomen is soft. Tenderness: There is no abdominal tenderness. Musculoskeletal: Right lower leg: No edema. Left lower leg: No edema. Skin: General: Skin is warm and dry. Coloration: Skin is not pale. Findings: No rash. Neurological: Mental Status: She is alert and oriented to person, place, and time. Mental status is at baseline. Psychiatric: Mood and Affect: Mood normal. Behavior: Behavior normal. Thought Content: Thought content normal. Judgment: Judgment normal. ASSESSMENT AND PLAN: Assessment/Plan Diagnosis Plan 1. Well adult exam sees TRANSIT MIXER DRIVER - pap 07/23 done mammogram scheduled Had a colonoscopy 2015 due 2025 immun flu, tdap - encouraged, shingles at age 49. Declined flu 2. Essential hypertension (CMS/HCC) controlled. 3. Fatty liver pt is seeing Dr Booker 4. Gastroesophageal reflux disease, unspecified whether esophagitis present famotidine (Pepcid) 20 MG tablet Pt states the famotadine is working better than protonix, pt stopped protonix 5. Irritable bowel syndrome with both constipation and diarrhea stable 6. DDD (degenerative disc disease), cervical no pain 7. Fibromyalgia pt is walking, pain is better. 8. Hypothyroidism, unspecified type (CMS/HCC) controlled 9. Impaired fasting glucose seeing Dr Salas 10. PCOS (polycystic ovarian syndrome) seeing TRANSIT MIXER DRIVER 11. Vitamin D deficiency on supplement controlled 12. Hypomagnesemia labs reviewed. now corrected 13. Pure hypertriglyceridemia (CMS/HCC) Pt will discuss with the professor of anthropology. 14. Body mass index (BMI) of 40.1 to 44.9 in adult (CMS/HCC) 15. Degeneration of intervertebral disc of lumbar region without discogenic back pain or lower extremity pain no pain with weight loss and walking 16. Migraine without status migrainosus, not intractable, unspecified migraine type (CMS/HCC) rizatriptan (Maxalt) 10 MG tablet controlled /stable Follow up yrly and prn I will send her labs to Dr Salas office. She will talk to the professor of anthropology about her increased triglycerides . I pt is to follow up with sports book writer for menopausal symptoms documented in this encounter [facility] 07-17-2024 History of Presen t illness Narrative Reason for Appointment: Patient ID: Chanda Steve is a 48 y.o. female who presents for Gynecologic Exam Patient presents today for Annual Exam. MEDICATIONS Current Outpatient Medications Medication Instructions benzonatate (Tessalon) 100 MG capsule Do not crush or chew.
1-2 tid prn for cough citalopram (CELEXA) 20 mg, Oral, Daily levothyroxine (Synthroid, Levoxyl) 125 MCG tablet TAKE 1 TABLET DAILY ON AN EMPTY STOMACH lisinopril-hydroCHLOROthiazide 20-25 MG tablet 1 tablet, Oral, Daily metFORMIN (Glucophage) 500 MG tablet TAKE 1 TABLET DAILY WITH A MEAL Nurtec 75 MG tablet dispersible TAKE 1 TABLET BY MOUTH EVERY OTHER DAY FOR HEADACHE PREVENTION pantoprazole (PROTONIX) 40 mg, Oral, Daily promethazine (PHENERGAN) 25 mg, Oral, Every 6 hours PRN rizatriptan (MAXALT) 10 mg, Oral, As needed ALLERGIES Allergies Allergen Reactions Avelox [Moxifloxacin] GI intolerance Heart racing Bactrim [Sulfamethoxazole-Trimethoprim] Other Joint pain, lips tingle, eyes itch Biaxin [Clarithromycin] Diarrhea jittery Hydrocodone-Acetaminophen Unknown and Itching Macrobid [Nitrofurantoin] Dizziness Oxycodone Unknown Sulfa Antibiotics Zofran [Ondansetron] Headache Iodinated Contrast Media Rash and Unknown Iodine Rash PROBLEMS Active Ambulatory Problems Diagnosis Date Noted Anxiety disorder 06/24/2023 OCD (obsessive compulsive disorder) ([facility]) 06/24/2023 Migraine without status migrainosus, not intractable ([facility]) 11/02/2022 Body mass index (BMI) of 40.1 to 44.9 in adult ([facility]) 06/24/2023 DDD (degenerative disc disease), cervical 06/24/2023 DDD (degenerative disc disease), lumbar 06/24/2023 Depressive disorder ([facility]) 06/24/2023 Endometriosis 06/24/2023 Essential hypertension ([facility]) 06/24/2023 Fatty liver 06/24/2023 Fibromyalgia 06/24/2023 GERD (gastroesophageal reflux disease) 06/24/2023 Hypokalemia 11/05/2022 Hypomagnesemia 11/02/2022 Hypothyroidism, unspecified ([facility]) 06/24/2023 IBS (irritable bowel syndrome) 06/24/2023 Impaired fasting glucose 06/24/2023 Metabolic syndrome 06/24/2023 Non-allergic rhinitis 06/24/2023 PCOS (polycystic ovarian syndrome) 06/24/2023 PMS (premenstrual syndrome) 06/24/2023 Pure hypertriglyceridemia (CMS/HCC) 06/24/2023 Vitamin D deficiency 06/24/2023 Resolved Ambulatory Problems Diagnosis Date Noted Chest pain 06/16/2021 Past Medical History: Diagnosis Date Anxiety BMI 39.0-39.9,adult BPPV (benign paroxysmal positional vertigo) Carpal tunnel syndrome Depression (CMS/HCC) History of screening mammography 08/03/2022 HTN (hypertension) (CMS/HCC) Hypertriglyceridemia (CMS/HCC) Hypothyroidism (CMS/HCC) Maxillary sinusitis, unspecified chronicity Meniere's disease Menorrhagia with irregular cycle Migraines (CMS/HCC) Mood changes Morbid obesity with BMI of 40.0-44.9, adult (CMS/HCC) Nasal polyp Nonsmoker Obesity (BMI 30-39.9) Pelvic pain in female Recurrent sinus infections Renal calculi Thyroid disease (CMS/HCC) Tonsillitis 1984 HISTORY PAST MEDICAL HISTORY SOCIAL HISTORY Past Medical History: Diagnosis Date Anxiety BMI 39.0-39.9,adult BPPV (benign paroxysmal positional vertigo) Carpal tunnel syndrome Chest pain 06/16/2021 Depression (CMS/HCC) Fatty liver GERD (gastroesophageal reflux disease) History of screening mammography 08/03/2022 negative HTN (hypertension) (CMS/HCC) Hypertriglyceridemia (CMS/HCC) Hypothyroidism (CMS/HCC) Maxillary sinusitis, unspecified chronicity Meniere's disease Menorrhagia with irregular cycle Migraines (CMS/HCC) Mood changes Morbid obesity with BMI of 40.0-44.9, adult (CMS/HCC) Nasal polyp Nonsmoker Obesity (BMI 30-39.9) PCOS (polycystic ovarian syndrome) Pelvic pain in female Recurrent sinus infections Renal calculi Thyroid disease (CMS/HCC) Tonsillitis 1983 Social History Tobacco Use Smoking status: Never Smokeless tobacco: Never Vaping Use Vaping status: Never Used Substance Use Topics Alcohol use: Yes Comment: Alcohol: 1-2 drinks/monthly or less Drug use: Never FAMILY HISTORY Family History Problem Relation Name Age of Onset Hypertension Mother Hypothyroidism Mother Depression Mother major depression Heart disease Mother COPD Father Other (Degenerative Disc Disease (DDD)) Father Hypertension Father Hypertension Sister Polycystic ovary syndrome Sister Heart disease Maternal Grandmother Lung cancer Paternal Grandmother Colon cancer Paternal Grandfather SURGICAL HISTORY Past Surgical History: Procedure Laterality Date CARPAL TUNNEL RELEASE Right 06/27/2015 DR GARRIDO CARPAL TUNNEL RELEASE Left 08/01/2015 DR GARRIDO CHOLECYSTECTOMY 2005 COLONOSCOPY 03/28/2009 CYSTOSCOPY 09/24/2011 Dr. Nelson CYSTOSCOPY 03/17/2017 ureteroscope stone extraction - Dr. Nelson DILATION AND CURETTAGE 2012 ENDOMETRIAL BIOPSY 05/2019 EXTRACORPOREAL SHOCK WAVE LITHOTRIPSY 12/10/2014 Dr. Breezy Nelson/[facility] LITHOTRIPSY 2008 X2 VA TONSILLECTOMY & ADENOIDECTOMY <AGE 11 1984 SINUS SURGERY 2016 SINUSOTOMY 07/02/2008 Maxillary sinusotomy REVIEW OF SYSTEMS Review of Systems: Review of Systems Breasts: Complaints of right nipple 'itching All other systems reviewed and are negative. OBJECTIVE Objective: Physical Exam Constitutional: Appearance: Normal appearance. Genitourinary: Genitourinary Comments: Right nipple irritation nothing visibly seen on examination. Right Adnexa: not tender and no mass present. Left Adnexa: not tender and no mass present. No cervical discharge. Breasts: Breasts are soft. Right: Normal. Left: Normal. HENT: Head: Normocephalic. Nose: Nose normal. Mouth/Throat: Mouth: Mucous membranes are moist. Cardiovascular: Rate and Rhythm: Normal rate. Pulmonary: Effort: Pulmonary effort is normal. Abdominal: General: Bowel sounds are normal. Palpations: Abdomen is soft. Musculoskeletal: General: Normal range of motion. Cervical back: Normal range of motion. Neurological: General: No focal deficit present. Mental Status: She is alert. Skin: General: Skin is warm and dry. Psychiatric: Mood and Affect: Mood normal. Vitals and nursing note reviewed. Exam conducted with a care program director present. Vitals: Estimated body mass index is 38.88 kg/m as calculated from the following: Height as of 06/28/23: 5' 3.5 . Weight as of this encounter: 223 lb. BP: 122/72 Patient's last menstrual period was 07/07/2024 (approximate). ASSESSMENT & PLAN ICD-10-CM 1. Well woman exam with routine gynecological exam Z01.419 THIN PREP TIS PAP AND HR HPV DNA 2. Breast cancer screening by mammogram Z12.31 Bilateral screening mammogram Bilateral screening mammogram Annual Exam: Patient presents today for an annual exam. Patient states she is doing well and has no complaints. Pap was obtained without difficulty. Orders Placed This Encounter Procedures Bilateral screening mammogram Follow Up: Patient is to return in one year for annual unless needed otherwise. Right breast pruritus recommend Vitamin E lotion; primrose oil, lanolin and prescription for desonide topical PRN sent to pharmacy will reevaluate with telehealth visit in 1 months time. Documented by BRIDGER Hernandez on behalf of: BRIDGER Hernandez documented in this encounter [facility] 03-20-2024 Evaluation note Authored May 15, 2024 [...] of kidney stones. 3. Impaired fasting glucose/prediabetes/gestational bkpqvxmq-vomvg-qrvc treatment with lifestyle change, decrease simple sweets [...] her prediabetes and hypertriglyceridemia Author Breezy Salas [facility] Authored March 20, 2024 9:06 am Highest [...] of kidney stones. 3. Impaired fasting glucose/prediabetes/gestational zfrgacvw-aaiak-hezu treatment with lifestyle change, decrease simple sweets [...] May to follow-up her prediabetes and hypertriglyceridemia. [facility] Work Phone: 1(720) 506-980506-03-2024 Evaluation note* Author Breezy Salas [facility] Authored January 31, 2024 9:24a m Assessment: Highest weight/starting weight: 249 lbs Start [...] other side effects. 3. Impaired fasting glucose/prediabetes/gestational wriizhfc-uxpzi-jifv treatment with lifestyle change, decrease simple sweets [...] Our exercise program was recommended with our lineworker/obesity exercise group. Handout given. Our free weekly [...] and benefits of prescribed meds discussed. Initial opmj-ou-ivzg interview/evaluation. The patient was counseled in detail on the options for weight loss in an individual setting. 56 minutes was spent caring for the patient, counseling/educating patient on the options for the treatment of obesity and related healthcare issues. The program's treatment goals were reviewed with the patient. Each aspect of the program was discussed with the patient. [facility] Work Phone: 1(188) 902-728106-03-2024 Evaluation note* Author Breezy Salas [facility] Authored January 31, 2024 9:24a m Assessment: Highest weight/starting weight: 249 lbs Start [...] other side effects. 3. Impaired fasting glucose/prediabetes/gestational vwlnazhb-yiblu-hhiw treatment with lifestyle change, decrease simple sweets [...] Our exercise program was recommended with our lineworker/obesity exercise group. Handout given. Our free weekly [...] and benefits of prescribed meds discussed. Initial yvme-zh-vnig interview/evaluation. The patient was counseled in detail on the options for weight loss in an individual setting. 56 minutes was spent caring for the patient, counseling/educating patient on the options for the treatment of obesity and related healthcare issues. The program's treatment goals were reviewed with the patient. Each aspect of the program was discussed with the patient. Author Mary Ellen [facility] Authored March 20, 2024 8:41 am Highest [...] other side effects. 3. Impaired fasting glucose/prediabetes/gestational yewwjdco-yhglj-ilhl treatment with lifestyle change, decrease simple sweets [...] May to follow-up her prediabetes and hypertriglyceridemia. [facility] Work Phone: Chief complaint+Reason for visit Narrative* Chief Complaint [facility]-Referral Hayley Pump [facility] Work Phone: Chief complaint+Reason for visit Narrative* Chief Complaint [facility]-Referral Hayley Pump Initial [facility] group Reason for Visit Abnormal weight gain Depression Essential hypertension Lani's disease Heart burn Hypertriglyceridemia Loud snoring Polycystic ovarian syndrome Prediabetes [facility] Work Phone: Evaluation note* Author Breezy Salas [facility] Authored January 31, 2024 9:19a m Assessment: Highest weight/starting weight: 249 lbs Start [...] other side effects. 3. Impaired fasting glucose/prediabetes/gestational fmgbxhwu-bfwwy-diek treatment with lifestyle change, decrease simple sweets [...] Our exercise program was recommended with our lineworker/obesity exercise group. Handout given. Our free weekly [...] and benefits of prescribed meds discussed. Initial iiux-ok-dvji interview/evaluation. The patient was counseled in detail on the options for weight loss in an individual setting. [ ] minutes was spent caring for the patient, counseling/educating patient on the options for the treatment of obesity and related healthcare issues. The program's treatment goals were reviewed with the patient. Each aspect of the program was discussed with the patient. [facility] Work Phone: Evaluation note* Diagnosis Itching- Primary Unspecified pruritic disorder Well woman exam with routine gynecological exam Routine gynecological examination Breast cancer screening by mammogram documented in this encounter [facility]* Diagnosis Well adult exam- Primary Routine general medical examination at a health care facility Essential hypertension (CMS/HCC) Unspecified essential hypertension Fatty liver Other chronic nonalcoholic liver disease Gastroesophageal reflux disease, unspecified whether esophagitis present Irritable bowel syndrome with both constipation and diarrhea DDD (degenerative disc disease), cervical Degeneration of cervical intervertebral disc Fibromyalgia Unspecified myalgia and myositis Hypothyroidism, unspecified type (CMS/HCC) Impaired fasting glucose PCOS (polycystic ovarian syndrome) Polycystic ovaries Vitamin D deficiency Hypomagnesemia Disorders of magnesium metabolism Pure hypertriglyceridemia (CMS/HCC) Body mass index (BMI) of 40.1 to 44.9 in adult (CMS/HCC) Degeneration of intervertebral disc of lumbar region without discogenic back pain or lower extremity pain Migraine without status migrainosus, not intractable, unspecified migraine type (CMS/HCC) documented in this encounter [facility] Diagnosis Hypothyroidism, unspecified type (CMS/HCC) documented in this encounter [facility]* Diagnosis Well woman exam with routine gynecological exam- Primary Routine gynecological examination documented in this encounter [facility]* Diagnosis Essential hypertension (CMS/HCC) Unspecified essential hypertension documented in this encounter [facility] Summary Purpose Family History Relationship Condition Age at Onset Recorded Date/T trey Not Specified Heart disease Unknown Hypertension Unknown father Diabetes mellitus Unknown Relationship Condition Age at Onset Recorded Date/T trey mother Heart disease Unknown Hypertension Unknown father Diabetes mellitus Unknown Advance Directives Advance Directive Response Recorded Date/ Time Advance Directives No November 24, 024 10:19am Chief Complaint and Reason for Visit Chief Complaint Initial [facility] group Reason for Visit BMI 40.0-44.9, adult Essential hypertension Hypertriglyceridemia Prediabetes Additional Source Comments INFORMATION SOURCE (unrecogn ized section and content) DATE CREATED AUTHOR 12/17/2021 [facility] DATE CREATED AUTHOR AUTHOR'S ORGANIZ ATION 08/08/2022 [facility] DATE CREATED AUTHOR AUTHOR'S ORGANIZ ATION 08/16/2024 [facility] EPIC Care Teams (unrecognized sec tion and content) Team Status: Active Member Role Status Dates Shakila Gaxiola MD Primary Care Provider Active Team Status: Inactive Member Role Status Dates Shakila Gaxiola MD Primary Care Provider Active Start: January 31, 2024 End: January 31, 2024 Breezy Salas MD Attending Provider Active Start: January 31, 2024 End: January 31, 2024 Team Status: Inactive Member Role Status Dates Shakila Gaxiola MD Primary Care Provider Active Start: February 22, 2024 End: February 22, 2024 SILVERIO Vallejo Attending Provider Active Start: February 22, 2024 End: February 22, 2024 Team Status: Inactive Member Role Status Dates Shakila Gaxiola MD Primary Care Provider Active Start: March 20, 2024 End: March 20, 2024 Breezy Salas MD Attending Provider Active Start: March 20, 2024 End: March 20, 2024 Team Status: Active Member Role Status Dates Shakila Gaxiola MD Primary Care Provider Active Start: November 25, 2023 Kathya Hay RP Attending Provider Active Start: November 25, 2023 Team Status: Inactive Member Role Status Dates Shakila Gaxiola MD Primary Care Provider Active Start: May 15, 2024 End: May 15, 2024 Breezy Salas MD Attending Provider Active Start: May 15, 2024 End: May 15, 2024 Intern Retail Relationship Specialty Start Date End Date Shakila Gaxiola MD [address] [facility] [place] [address] PCP - General Family Medicine 01/05/23 Intern Retail Relationship Specialty Start Date End Date Shakila Gaxiola MD [address] [facility] [place] [address] PCP - General Family Medicine 01/05/23 Intern Retail Relationship Specialty Start Date End Date Shakila Gaxiola MD [address] [facility] [place] [address] PCP - General Family Medicine 01/05/23 Intern Retail Relationship Specialty Start Date End Date Shakila Gaxiola MD [address] [facility] [place] [address] PCP - General Family Medicine 01/05/23 Intern Retail Relationship Specialty Start Date End Date Shakila Gaxiola MD [address] [place] [address] PCP - General Family Medicine 01/05/23 Intern Retail Relationship Specialty Start Date End Date Shakila Gaxiola MD [address] [place] [address] PCP - General Family Medicine 01/05/23 Intern Retail Relationship Specialty Start Date End Date Shakila Gaxiola MD [address] [place] [address] PCP - General Family Medicine 01/05/23 Intern Retail Relationship Specialty Start Date End Date Shakila Gaxiola MD [address] [place] [address] PCP - General Family Medicine 01/05/23 Intern Retail Relationship Specialty Start Date End Date Shakila Gaxiola MD [address] [place] [address] PCP - General Family Medicine 01/05/23 Goals (unrecognized section and content) Goals may be documented in a n alternate sectionGoals may be documented in an alternate sectionGoals may be documented in an alternate sectionGoals may be documented in an alternate section Reason for Visit (unrecogniz ed section and content) Reason Comments Gynecologic Exam Reason Comments Annual Exam Reason Comments Med Refill FOR RECORDS PERTAINING TO PATIENTS WHO ARE [...] BE BASED ON THE PRIMARY CLINICAL RECORDS. [employer] [facility]. provides no warranty or guarantee of the accuracy or completeness of information in this document.
== END 2024-08-28 11:14 | disposition home or self-care (01) ==
LOC: MAMMO 11:14
PROVIDERS: PCP Family Medicine; Visit Provider Obstetrics & Gynecology
DX: Z12.31 Encounter for screening mammogram for malignant neoplasm of breast (principal); Z80.3 Family history of malignant neoplasm of breast
CPT/HCPCS: 77063; 77067

== ENCOUNTER 2025-07-30 14:57 | Outpatient (REF) | payer OTHER, SELFPAY ==
--- OUTSIDE RECORDS SUMMARY | 2025-07-16 04:26 | XMS_ITS | Continuity of Care Document ---
Author Organization [facility] Address [address] [place] [address] Phone Care Team Providers Care Maritime Officer Name Role Phone Shakila Fallon MD Primary Care Provider Breezy Salas MD Attending Provider [phone] Care Teams Patient Care Team Team Status: Active Member Role/Relationship Status Dates Shakila Fallon MD Primary Care Provider Active Patient Care Team Team Status: Inactive Member Role/Relationship Status Dates Shakila Fallon MD Primary Care Provider Active Start: July 16, 2025 End: July 16, 2025Breezy Salas MDAttending ProviderActiveStart: July 16, 2025 End: July 16, 2025 Allergies, Adverse Reactions, Alerts Allergen Type Severity Reaction Last Updated Verified Status Comments Gadolinium-Contai inez Contrast Medi Allergy Unknown Rash July 16, 2025 9:05am Yes Active Iodinated Contrast MediaAllergyUnknownRashNovember 2024 9:05amYesActive moxifloxacinAllergyUnknownGastrointestinal UpsetNovember 2024 9:05amYes Activealso states she was out of her mind Social History Smoking Status Status Start Date End Date Date of Observa tion Never smoked tobacco (finding) January 31, 2024 9:17am Observation Status Observation Response Date of Response Legal Sex Female (finding) Sex Assigned At BirthFemaleFebruary 1975 Family History Relationship Condition Age at Onset Recorded Date/T trey mother Heart disease Unknown HypertensionUnknownfatherDiabetes mellitusUnknown Problems Active Problems Problem Diagnosis/Recorded Date Onset Date Stat us Loud snoring January 31, 2024 7:30am Unknown Active Low back pain January 31, 2024 7:31am Unknown Activ e Fatigue January 31, 2024 7:30am Unknown Active Heart burn January 31, 2024 7:28am Unknown Active Hypertriglyceridemia January 31, 2024 7:29am Unknown Active Abnormal weight gain January 31, 2024 8:21am Unknown Active Anxiety January 31, 2024 7:27am Unknown Active Depression January 31, 2024 7:27am Unknown Active Fibromyalgia January 31, 2024 7:31am Unknown Active Migraine January 31, 2024 7:29am Unknown Active Hypothyroidism January 31, 2024 7:30am Unknown Acti ve Mixed hyperlipidemia September 25, 2024 10:43am Unknow n Active Obesity, Class II, BMI 35-39.9 September 25, 2024 10:4 3am Unknown Active Borderline diabetes January 31, 2024 7:28am Unknown Active Polycystic ovarian syndrome January 31, 2024 7:28am Unkn own Active Lani's disease January 31, 2024 7:32am Unknown Active Essential hypertension January 31, 2024 8:22am Unknown Active BMI 40.0-44.9, adult March 20, 2024 8:05am Unknown Active Prediabetes January 31, 2024 8:22am Unknown Active GERD (gastroesophageal reflux disease) September 25, 2 025 10:43am Unknown Active High blood pressure January 31, 2024 7:29am Unknown Active Medications Medication Status Dose Units Route Directions Qty Days Refills S tart Date Stop Date End Date Reason(s) Instructions Adherence Semaglutide/NAM/MeCbl 1.8 mg/0.5 mL Discontinued 0.5 ML SUBCUT every week 2 0January 09, 2025 11:00pmJun2024 7:58amB[facility] Drug Compounded Pre-filled Syringes using Semaglutide Base 1.8 mg/Niacinamide 1 mg and Methylcobalamin 4 mcg Dispense 2 mL - (Four 0.5 mL pre-filled syringes)Semaglutide/NAM/MeCbl 1.8 mg/0.5 mLDiscontinued0.5MLSUBCUTevery woor83Idma2024 7:58amJuly 2024 10:57amB[facility] Drug Compounded Pre-filled Syringes using Semaglutide Base 1.8 mg/Niacinamide 1 mg and Methylcobalamin 4 mcg Dispense 2 mL - (Four 0.5 mL pre-filled syringes). The patient would like to take the 3 compounded agents for weight management.Semaglutide/NAM/MeCbl 1.8 mg/0.5 mLDiscontinued0.5MLSUBCUTevery wjla81Ewjc 2024 10:57amJuly 2024 7:50amB[facility] Drug Compounded Pre-filled Syringes using Semaglutide Base 1.8 mg/Niacinamide 1 mg and Methylcobalamin 4 mcg Dispense 2 mL - (Four 0.5 mL pre-filled syringes). The patient would like to take the 3 compounded agents for weight management.Lisinopril- Hydrochlorothiazide 20-25 mg wbcuxfDvnrzg2GLVCUJfetvSkuc 2023 11:00pm Complies with drug therapyLevothyroxine 125 mcg emssdaPzogil517EFOQAKrmvsGiig 2nd, 2024 11:00pmComplies with drug therapyCitalopram 20 mg aatybuShherw05DCKK DailyEcu Health2023 11:00pmComplies with drug therapyMetformin 500 mg tablet Ctqridvahdez878CXHIOctvzTvpd 2nd, 2024 11:00pmNovember 2024 9:06am Rimegepant (Nurtec Odt) 75 mg tablet,fevyaxnlegsmeeYnllvmdtbjkh72NUGB.prn as neededEcu Health2023 11:00pmNovember 2023 10:23amBudesonide 32 mcg/actuation spray,non-nsrxhqnAzquxzuqnatg6ZISFPJRXVTUSTSULbrze as neededEcu Health2023 11:00pmJanuary 2024 10:21amadminister into each nostril Hyoscyamine Sulfate 0.125 mg tabletActive0.632XIBL6-4 TIMES PER DAY as needed January 30, 2024 11:00pmComplies with drug therapyRizatriptan 10 mg tabletActive0 PO.COMPLEXJune 2023 11:00pmtake 1 tab at onset of headache; if no relief may repeat 1 tab after at least 2 hrs; max = 3 tabs/24 hr POComplies with drug therapyPromethazine 25 mg ltollcRwosro64YOXASlbmt times daily as neededJun2023 11:00pmComplies with drug therapySemaglutide Base 0.3 mg/0.25 mL Discontinued0.25MLSUBCUTevery rizu24Pqla2023 11:00pmNov2023 10:23amBuderer Drug Compounded Pre-filled Syringes using Semaglutide Base. Dispense 1 mL = (Four 0.25 mL pre-filled syringes)Semaglutide Base 0.6 mg/0.5 mL Discontinued0.5MLSUBCUTevery idkn97BbyfvujeJuly 03, 2024 12:00amJanuary 2024 10:46amB[facility] Drug Compounded Pre-filled Syringes using Semaglutide Base. Dispense 2 mL = (Four 0.5 mL pre-filled syringes)Semaglutide Base 1.2 mg/0.33 mL Discontinued0.33MLSUBCUTevery week1.321March 2024 11:00pmMay 2024 5:12pmBuderer Drug Compounded Pre-filled Syringes using Semaglutide Base. Dispense 1.32 mL = (Four 0.33 mL pre-filled syringes)Semaglutde/NAM/MeCbl 2.268 mg/0.63 mLDiscontinued0.63MLSUBCUTevery week2.522July 2024 11:00pmOctober 2024 12:26pmBuderer Drug Compounded Pre-filled Syringes using Semaglutide Base 2.268 mg/Niacinamide 1.26 mg andMethylcobalamin 5 mcg Dispense 2.52 mL - (Four 0.63 mL pre-filled syringes)Semaglutde/NAM/MeCbl 2.268 mg/0.63 mLActive0.63MLSUBCUTevery week2.520October 2024 12:26pmBuderer Drug Compounded Pre-filled Syringes using Semaglutide Base 2.268 mg/Niacinamide 1.26 mg andMethylcobalamin 5 mcg Dispense 2.52 mL - (Four 0.63 mL pre-filled syringes)Complies with drug therapy Famotidine 20 mg buqkkzJiwaxv12QDQKBlhboBcefcob 2024 12:00amComplies with drug therapySemaglutide Base 0.6 mg/0.5 mLDiscontinued0.5MLSUBCUTevery weekSeptember 25, 2024 10:46amMay 2024 5:12pmBuderer Drug Compounded Pre- filled Syringes using Semaglutide Base. Dispense 2 mL = (Four 0.5 mL pre-filled syringes) Vital Signs Vital Reading Result Reference Range Collection Date/Time Height 63 [in_i] July 16, 2025 8:28aaWlkuqz62.40 kgJuly 16, 2025 8:57amHeart Rate74 /oqa15-309KriyfdljJuly 16, 2025 8:57amRespiratory rate18 /tyl47-08EeweaiqfJuly 16, 2025 8:57amOxygen saturation by Pulse bnzhlgnu97 %95-100July 16, 2025 8:57amBP Gluggtjn860 mm[Hg]100-140July 16, 2025 8:57amBP Jdlspotqv91 mm[Hg]60-100July 16, 2025 8:57amBMI (Body Mass Index)37.6 kg/p5RmtkvatlJuly 16, 2025 8:57am Advance Directives Advance Directive Response Recorded Date/ Time Advance Directives No November 24 024 9:19am Insurance Providers Guarantor Tanja Griffin Address [address] [id number] Info.Home Phone: Coverage Status Update:2024 Payer Group Member ID Coverage Type Subscriber Relationship to Subscriber Effective Date Expiration Date [facility] Id: [id number] Paul , M Id: [id number] [address] [address] Home Phone: Email: [email or web address] Encounters Encounter Location(s) Arrival/Admit Date Discharge/Departure Date Discharge/Departure Disposition Provider(s) Departed Physician/ Provider Office Visit -[facility] July 16, 2025 8:53am July 16, 2025 9:23am Discharged to home care or self care (routine discharge) Breezy Salas MD Assessments Author Ingrid Lam [facility] 2024 9:13amStart Weight/Highest- 249 lbs. she is down 36.5 lbs. today with a weight of 212.5 lbs. she is down 8.8 lbs since last visit 03/26/2025. Starting Date: 01/31/24 Semaglutide start date 01/31/2024. Semaglutide/ Buderer start weight 249 pounds. She is down 36.5 lbs. 1. Abnormal weight gain 2. Obesity-significant improvement on compounded semaglutide with B3 and B12 with a greater than 10% weight loss with now getting full quicker and having better food control, but she seems to have plateaued and would like to go opt at the 2.2 mg dose if no side effects or problems. Heartburn had been a previous issue but now well controlled. She will continue to follow an antireflux diet. She craves sweets, white bread and Twinkies. She is doing better now with trying to keep unhealthy foods out of the house and eating healthy Whole Foods. The medicine has been helpful. She has fortunately increased her exercise and added circuit training. In the past, she had tried many times on her own and unable to lose long-term weight and she was at her highest weight ever before starting our program and taking compounded semaglutide. She had past issues with skipping breakfast, sometimes lunch and eating most of her food at night. She should continue to treat with long-term lifestyle changes of improved nutrition, increased exercise and activity, stress reduction, adequate sleep and behavioral modification versus short-term dieting. Her PHQ-9 was 7 with starting the program she is on citalopram 20 mg. We will try to avoid Topamax with history of kidney stones. 3. Impaired fasting glucose/prediabetes with A1c of 5.9 before starting the program/gestational diabetes-improved with her most recent A1c down to 5.4 06/2024. Continue first- line treatment with lifestyle change, decrease simple sweets and starches, increased exercise and weight loss. 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 I continue to recommend continuing GLP-1 agonist if affordable. She needs close long-term follow-up this condition to prevent diabetes. 4. Plbghxpyeaec-xdnw-rrkaciwdmz. She will continue treat with a low-salt diet, decreased processed and restaurant foods, healthy lifestyle changes and achieve long-term weight loss. Monitor outside the office. Controlled on lisinopril-HCTZ. 5. Hypertriglyceridemia/mixed hyperlipidemia-not yet improving, but should improve with further healthy lifestyle change. She denies alcohol use. She will continue treat with decreasing the simple sweets, added sugars, refined starches, and bad/added fats, increasing activity and exercise and continued long-term weight loss. 6. Kidney stones-she is increasing her water intake. Will avoid Topamax. 7. Hypothyroidism-her TSH was 4 when checked [...] with GLP-1. Follow up with me in 8-12 weeks. New labs needed: Up-to-date. She needs yearly follow-up blood work follow-up her prediabetes and hypertriglyceridemia including fasting CMP, cholesterol profile and A1c again 06/2025.
--- OUTSIDE RECORDS SUMMARY | 2025-07-30 10:00 | XMS_ITS | Encounter Summary ---
Author Organization [facility] Address [address] [place] [address] Care Team Providers Care Senior Accounting Clerk Name Role Phone Unavailable Primary Care Provider Unavailabl e Reason for Visit * ReasonCommentsWell Women Visit Encounter Details DateTypeDepartmentCare Team (Latest Contact Info)Gnvxffyzmnj90/01/2025 10:00 AM ESTOffice Visit [facility] [address] [address] Kate Weathers PA [address] [place], [facility]11 Well woman exam with routine gynecological exam; Breast cancer screening by mammogram; Postmenopausal state; DDD (degenerative disc disease), cervical; Degeneration of intervertebral disc of lumbar region without discogenic back pain or lower extremity pain Social History Tobacco UseTypesPacks/DayYears UsedDateSmoking Tobacco: NeverPassive Smoke Exposure: PastSmokeless Tobacco: NeverAlcohol UseStandard Drinks/WeekCommentsNot Currently0 (1 standard drink = 0.6 oz pure alcohol)Caffine: 1-2 cups daily AUDIT-CAnswerDate RecordedQ1: How often do you have a drink containing alcohol? Monthly or less06/28/2023Q2: How many drinks containing alcohol do you have on a typical day when you are drinking?1 or Q3: How often do you have six or more drinks on one occasion?Never06/28/2023HQ-2AnswerDate RecordedPatient Health Questionnaire-2 Lwbie590/25/2024CommentsNoSex and Gender InformationValueDate RecordedSex Assigned at BirthNot on fileLegal SexFemale 11/11/2022 6:40 PM EDTGender KwymatstUmmvkp91/15/2023 6:40 PM EDTSexual OrientationNot on filedocumented as of this encounter Last Filed Vital Signs Vital SignReadingTime TakenCommentsBlood Wljziuun450/7007/30/2025 10:05 AM EST Pulse--Temperature--Respiratory Rate--Oxygen Saturation--Inhaled Oxygen Concentration--Kzllxi45.3 kg (212 lb 6.4 oz)07/30/2025 10:05 AM ESTHeight--Body Mass Index38.23109/23/2023 9:35 AM ESTdocumented in this encounter Progress Notes * BRIDGER Hernandez - 07/30/2025 10:00 AM EST Reason for Appointment: Patient ID: Chanda Steve is a 49 y.o. female who presents for Well Women Visit Patient presents today for Annual Exam. MEDICATIONS Current Outpatient Medications Medication Instructions citalopram (CELEXA) 20 mg, Oral, Daily cyclobenzaprine (FLEXERIL) 10 mg, Oral, 3 times daily famotidine (PEPCID) 20 mg, Oral, Daily hyoscyamine (ANASPAZ,LEVSIN) 0.125 mg, Every 4 hours PRN levothyroxine (Synthroid, Levoxyl) 125 MCG tablet TAKE 1 TABLET DAILY ON AN EMPTY STOMACH lisinopril-hydroCHLOROthiazide 20-25 MG tablet 1 tablet, Oral, Daily promethazine (PHENERGAN) 25 mg, Oral, Every 6 hours PRN rizatriptan (MAXALT) 10 mg, Oral, As needed SEMAGLUTIDE, 2 MG/DOSE, SC Inject under the skin ALLERGIES Allergies Allergen Reactions Avelox [Moxifloxacin] GI intolerance Heart racing Bactrim [Sulfamethoxazole-Trimethoprim] Other Joint pain, lips tingle, eyes itch Biaxin [Clarithromycin] Diarrhea jittery Hydrocodone-Acetaminophen Unknown and Itching Macrobid [Nitrofurantoin] Dizziness Oxycodone Unknown Sulfa Antibiotics Zofran [Ondansetron] Headache Iodinated Contrast Media Rash and Unknown Iodine Rash PROBLEMS Active Ambulatory Problems Diagnosis Date Noted Anxiety disorder 06/24/2023 OCD (obsessive compulsive disorder) 06/24/2023 Migraine without status migrainosus, not intractable 11/02/2022 Body mass index (BMI) of 40.1 to 44.9 in adult ([facility]) 06/24/2023 DDD (degenerative disc disease), cervical 06/24/2023 DDD (degenerative disc disease), lumbar 06/24/2023 Depressive disorder 06/24/2023 Endometriosis 06/24/2023 Essential hypertension 06/24/2023 Fatty liver 06/24/2023 Fibromyalgia 06/24/2023 GERD (gastroesophageal reflux disease) 06/24/2023 Hypomagnesemia 11/02/2022 Hypothyroidism, unspecified 06/24/2023 IBS (irritable bowel syndrome) 06/24/2023 Impaired fasting glucose 06/24/2023 Metabolic syndrome 06/24/2023 Non-allergic rhinitis 06/24/2023 PCOS (polycystic ovarian syndrome) 06/24/2023 PMS (premenstrual syndrome) 06/24/2023 Pure hypertriglyceridemia 06/24/2023 Vitamin D deficiency 06/24/2023 Well adult exam 07/24/2024 Resolved Ambulatory Problems Diagnosis Date Noted Chest pain 06/16/2021 Hypokalemia 11/05/2022 Past Medical History: Diagnosis Date Anxiety BMI 39.0-39.9,adult BPPV (benign paroxysmal positional vertigo) Carpal tunnel syndrome Depression History of screening mammography 08/03/2022 HTN (hypertension) Hypertriglyceridemia Hypothyroidism Maxillary sinusitis, unspecified chronicity Meniere's disease Menorrhagia with irregular cycle Migraines Mood changes Morbid obesity with BMI of 40.0-44.9, adult ([facility]) Nasal polyp Nonsmoker Obesity (BMI 30-39.9) Pelvic pain in female Recurrent sinus infections Renal calculi Thyroid disease Tonsillitis 1984 HISTORY PAST MEDICAL HISTORY SOCIAL HISTORY Past Medical History: Diagnosis Date Anxiety BMI 39.0-39.9,adult BPPV (benign paroxysmal positional vertigo) Carpal tunnel syndrome Chest pain 06/16/2021 Depression Fatty liver GERD (gastroesophageal reflux disease) History of screening mammography 08/03/2022 negative HTN (hypertension) Hypertriglyceridemia Hypothyroidism Maxillary sinusitis, unspecified chronicity Meniere's disease Menorrhagia with irregular cycle Migraines Mood changes Morbid obesity with BMI of 40.0-44.9, adult ([facility]) Nasal polyp Nonsmoker Obesity (BMI 30-39.9) PCOS (polycystic ovarian syndrome) Pelvic pain in female Recurrent sinus infections Renal calculi Thyroid disease Tonsillitis 1984 Social History Tobacco Use Smoking status: Never Passive exposure: Past Smokeless tobacco: Never Vaping Use Vaping status: Never Used Substance Use Topics Alcohol use: Not Currently Alcohol/week: 0.0 - 1.0 standard drinks of alcohol Comment: Caffine: 1-2 cups daily Drug use: Never FAMILY HISTORY Family History [...] EXTRACORPOREAL SHOCK WAVE LITHOTRIPSY 12/10/2014 Dr. Breezy Nelson/[employer] LITHOTRIPSY 2008 X2 OR TONSILLECTOMY & ADENOIDECTOMY <AGE 11 1984 SINUS SURGERY 2016 SINUSOTOMY 07/02/2008 Maxillary sinusotomy REVIEW OF SYSTEMS Review of Systems: Review of Systems Constitutional: Negative. HENT: Negative. Eyes: Negative. Respiratory: Negative. Cardiovascular: Negative. Gastrointestinal: Negative. Genitourinary: Negative. Musculoskeletal: Negative. Skin: Negative. Neurological: Negative. All other systems reviewed and are negative. Hematological: Negative. Endocrine: Negative. Allergic/Immunologic: Negative. OBJECTIVE Objective: Physical Exam Constitutional: Appearance: Normal appearance. Genitourinary: Right Adnexa: not tender and no mass [...] nursing note reviewed. Exam conducted with a onion farmer present. Vitals: Estimated body mass index is 39.56 kg/m?? as calculated from the following: Height as of 07/24/24: 5' 2.5 . Weight as of 01/31/25: 219 lb 12.8 oz. BP: No LMP recorded. Assessment/Plan ICD-10-CM 1. Well woman exam with routine gynecological exam Z01.419 THIN PREP TIS PAP AND HR HPV DNA 2. Breast cancer screening by mammogram Z12.31 Bilateral screening mammogram Bilateral screening mammogram 3. Postmenopausal state Z78.0 DEXA bone density 4. DDD (degenerative disc disease), cervical M50.30 DEXA bone density 5. Degeneration of intervertebral disc of lumbar region without discogenic back pain or lower extremity pain M51.369 DEXA bone density Assessment/Plan Annual: Patient presents today for an annual exam. Patient states she is doing well and has no complaints. Pap was obtained without difficulty and patient given mammogram/Dexa order to have scheduled/obtained. Patient using Yam cream as symptoms have come back when her period symptoms came back. Patient did have a period 06/2024 and this June she had light spotting not enough to wear a liner. Orders Placed This Encounter Procedures Bilateral screening mammogram DEXA bone density Follow Up: Patient is to return in one year for annual unless needed otherwise. Documented by Lianne Rajput LPN on behalf of: BRIDGER Hernandez documented in this encounter Plan of Treatment DateTypeDepartmentCare Team (Latest Contact Info)Eyntpettuyh53/07/2026 10:00 AM ESTProcedure Visit [facility] [address] [place] [address] Kate Weathers PA [address] [place] [address] NameTypePriorityAssociated DiagnosesOrder ScheduleBilateral screening mammogram ImagingRoutine Breast cancer screening by mammogram Expected: 07/30/2025, Expires: 09/30/2026DEXA bone densityImagingRoutine Postmenopausal state DDD (degenerative disc disease), cervical Degeneration of intervertebral disc of lumbar region without discogenic back pain or lower extremity pain Expected: 07/30/2025 (Approximate), Expires: 07/30/2026THIN PREP TIS PAP AND HR HPV DNAPathology and CytologyRoutine Well woman exam with routine gynecological exam Ordered: 07/30/2025documented as of this encounter Visit Diagnoses Diagnosis Well woman exam with routine gynecological exam Routine gynecological examination Breast cancer screening by mammogram Postmenopausal state Asymptomatic postmenopausal status (age-related) (natural) DDD (degenerative disc disease), cervical Degeneration of cervical intervertebral disc Degeneration of intervertebral disc of lumbar region without discogenic back pain or lower extremity pain documented in this encounter
--- OUTSIDE RECORDS SUMMARY | 2025-07-30 15:02 | XMS_ITS | Clinical Summary ---
Author Organization [facility] 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
--- OUTSIDE RECORDS SUMMARY | 2025-07-30 15:02 | XMS_ITS | Clinical Summary ---
Author Organization [employer] s tem Address [facility] [id number] [address] [place] [address] Care Team Providers Care [employer] Plant Attendant Name Role Phone Shakila Fallon MD Primary Care Provider [phone] Allergies Active AllergyReactionsCriticalityNoted DakdVjcouhgcRbuhxenyckqe70/23/2021 Iodinated Contrast GqtawGnldDyi93/18/2021ulfa (Sulfonamide Antibiotics) 04/21/2021 Medications MedicationSigDispense QuantityRefillsLast FilledStart DateEnd DateStatus levothyroxine (SYNTHROID, LEVOTHROID) 100 MCG tablet Take 125 mcg by mouth daily. Active lisinopril-hydroCHLOROthiazide (PRINZIDE,ZESTORETIC) 20-25 mg per tablet Take 1 tablet by mouth in the morning.Active citalopram (CeleXA) 10 mg tablet Take 20 mg by mouth nightly. Active metFORMIN (GLUCOPHAGE) 500 mg tablet Take 1 tablet by mouth daily with dinner. Active aspirin 81 mg chewable tablet Chew 1 tablet (81 mg total) and swallow daily. 30 tablet 06/18/2021ctive pantoprazole (PROTONIX) 40 mg EC tablet Take 1 tablet (40 mg total) by mouth daily. 30 tablet 06/17/2021ctive potassium chloride (KLOR-CON M 20) 20 MEQ CR tablet Take 1 tablet (20 mEq total) by mouth in the morning and 1 tablet (20 mEq total) before bedtime. 10 tablet 11/02/2022ctive Active Problems ProblemNoted DateDiagnosed TwfiQrzdvbyktxc50/09/2023Migraine without status migrainosus, not kxwdkttuhan60/06/5758Pvcjrhahdmkerh93/06/2023Chest pain 06/16/2021 Family History Medical HistoryRelationNameCommentsHeart diseaseMotherHypertensionSisterRelation NameStatusCommentsMotherOtherquad bypass and at 57 YOSister Social History Tobacco UseTypesPacks/DayYears UsedDateSmoking Tobacco: NeverSmokeless Tobacco: NeverAlcohol UseStandard Drinks/WeekCommentsNever0 (1 standard drink = 0.6 oz pure alcohol)ChildcareAnswerDate SlgbnlwbUyakmbvhcNzoxwbx52/10/2019Employment AnswerDate VvyttqrvWlbfpoqnhkRsfebpr03/10/2019Hunger ScreeningAnswerDate RecordedWithin the past 12 months we worried whether our food would run out before we got money to buy more.Never True12/22/2024Within the past 12 months the food we bought just didn't last and we didn't have money to get more.Never True12/22/2024Purpose - LifeAnswerDate RecordedPurpose and direction in life Fjduchm49/11/2021CommentsNoSex and Gender InformationValueDate Recorded Sex Assigned at BirthNot on fileLegal JnrQdhvin58/06/2015 11:40 AM EDTGender IdentityNot on fileSexual OrientationNot on file Last Filed Vital Signs Vital SignReadingTime TakenCommentsBlood Sbelgukr003/9412/22/2024 1:10 AM EDT Dxudc213112/22/2024 1:10 AM RZTXhigwyaabot96.7 ??C (98 ??F)11/02/2022 6:34 AM EST Respiratory Zctv465312/22/2024 1:10 AM EDTOxygen Umukyxqnam73%12/22/2024 1:10 AM EDTInhaled Oxygen Concentration--Euukfy064.1 kg (225 lb)12/22/2024 1:10 AM EDT Bskzuj342 cm (5' 3 )12/22/2024 1:10 AM EDTBody Mass Index39.8612/22/2024 1:10 AM EDT Plan of Treatment Health MaintenanceDue DateLast DoneCommentsDepression Evopspdrt82/23/1987Adult BMI Follow Up Plan1992DTaP,Tdap and Td Vaccines (2 - Td or Tdap)07/19/2020 07/19/2010Zoster (Shingles) Vaccine (1 of 2)2024Influenza Vaccine /06/2019, 05/16/2018, 06/22/2017, Additional history existsAdult BMI Wpqnebtaj22/Tobacco Hmgnvvdyg32/25//Pap [employer] Not on file Insurance MemberSubscriberPlan / Payer (Effective 2021-Present)Name:Chanda Steve Relation to Subscriber:SelfName:Chanda Steve Payer ID:Not on file Type:Not on file Address: [place] [id number] Advance Directives * Full Code (Latest Code Status on File) Date ActivatedDate SjabemwkiufRaqqlpfr26/19/2021 1:06 06/17/2021 4:55 PM Care Teams Team MemberRelationshipSpecialtyStart DateEnd Date Shakila Fallon MD [address] [place] [address] PCP - GeneralFamily Zxpjzaqz05/29/17
--- OUTSIDE RECORDS SUMMARY | 2025-07-30 15:02 | XMS_ITS | Clinical Summary ---
Author Organization [facility] Address [address] [place] [address] Care Team Providers Care Orderly Name Role Phone Unavailable Primary Care Provider Unavailabl e Allergies Active AllergyReactionsCriticalityNoted DateCommentsMoxifloxacinGI intolerance 05/05/2023 Heart racing Sulfamethoxazole-MeeqxocetipuBiyof02/06/2023 Joint pain, lips tingle, eyes itch TiufihrtoedqilBgfgabhd61/06/2023 jittery Hydrocodone-AcetaminophenUnknown,Xcnsydr8705/05/2023Iodinated Contrast MediaRash, OdiuyqmNas38/18/1857WonvxuUarfWvh39/06/9581AuaerndyqcxzeeXckjbhtgv50/06/2023 VqcjbzpfjGwakkuc10/06/2023Sulfa Zxjxyrpwibi52/23/2021OndansetronHeadache 05/05/2023 Medications MedicationSigDispense QuantityRefillsLast FilledStart DateEnd DateStatus promethazine (Phenergan) 25 MG tablet Indications:Migraine without status migrainosus, not intractable, unspecified migraine typeTake 1 tablet (25 mg) by mouth every 6 (six) hours if needed for nausea or vomiting 15 tablet ctive rizatriptan (Maxalt) 10 MG tablet Indications:Migraine without status migrainosus, not intractable, unspecified migraine typeTake 1 tablet (10 mg) by mouth if needed for migraine 9 tablet ctive levothyroxine (Synthroid, Levoxyl) 125 MCG tablet Indications:Hypothyroidism, unspecified typeTAKE 1 TABLET DAILY ON AN EMPTY STOMACH 90 tablet ctive lisinopril-hydroCHLOROthiazide 20-25 MG tablet Indications:Essential hypertensionTAKE 1 TABLET DAILY 90 tablet ctive SEMAGLUTIDE, 2 MG/DOSE, SC Inject under the skinActive cyclobenzaprine (Flexeril) 10 MG tablet Indications:Right shoulder pain, unspecified chronicityTake 1 tablet (10 mg) by mouth in the morning and 1 tablet (10 mg) in the evening and 1 tablet (10 mg) before bedtime. Do all this for 7 days. 21 tablet 5Active hyoscyamine (Anaspaz,Levsin) 0.125 MG tablet Take 0.125 mg by mouth every 4 (four) hours if needed for crampingActive citalopram (CeleXA) 20 MG tablet Indications:Anxiety, generalizedTAKE 1 TABLET DAILY 90 tablet 5Active famotidine (Pepcid) 20 MG tablet Indications:Gastroesophageal reflux disease, unspecified whether esophagitis presentTake 1 tablet (20 mg) by mouth Daily 90 tablet Discontinued Active Problems ProblemNoted DateDiagnosed DateWell adult exam07/24/2024nxiety disorder 06/24/2023OCD (obsessive compulsive disorder)06/24/2023ody mass index (BMI) of 40.1 to 44.9 in adult06/24/2023DD (degenerative disc disease), cervical 06/24/2023DD (degenerative disc disease), knolrc1606/24/2023epressive disorder 06/24/20230423Urtywxzofmtmd97/26/2023Essential argjogjqismo11/26/2023Fatty liver 06/24/20234041Aleyhekxbjar47/26/2023ERD (gastroesophageal reflux disease)06/24/2023 Hypothyroidism, xjvaivxvghb45/26/2023IBS (irritable bowel syndrome)06/24/2023 Impaired fasting roynibi1706/24/2023Metabolic vjgykzej93/26/2023Non-allergic nekfpvbg48/26/2023COS (polycystic ovarian syndrome)06/24/2023MS (premenstrual syndrome)06/24/2023ure cwanalwmbebgxiqxrggu02/26/2023Vitamin D deficiency 06/24/2023Migraine without status migrainosus, not fjtlfmnqogs32/06/2023 Dglhxbjskjvvpy98/06/2023 Resolved Problems ProblemNoted DateDiagnosed DateResolved WmonWsfobzwgqjl69/09/202311/25/2024Chest pain/ Encounters DateTypeDepartmentCare OjwxAetimsqouav38/01/2025 10:00 AM ESTOffice Visit [facility] [address] [address] Kate Weathers PA Well woman exam with routine gynecological exam; Breast cancer screening by mammogram; Postmenopausal state; DDD (degenerative disc disease), cervical; Degeneration of intervertebral disc of lumbar region without discogenic back pain or lower extremity pain07/30/2025amboo flowsheet [facility] [address] [place] [id number] Kate Weathers PA 05/03/2025Telephone [facility] [address] [place] [address] Jr. Isreal Higginbotham, DO Surgeryfrom Last 3 Months Immunizations ImmunizationAdministration DatesNext DueInfluenza, injectable, quadrivalent, preservative free06/09/2019,05/16/2018,06/22/2017,06/11/2016,07/06/2014Tdap 07/19/2010 Family History Medical HistoryRelationNameCommentsCOPDFatherDegenerative Disc Disease (DDD) FatherHypertensionFatherHeart diseaseMaternal GrandmotherDepressionMothermajor depressionHeart diseaseMotherHypertensionMotherHypothyroidismMotherColon cancer Paternal GrandfatherLung cancerPaternal GrandmotherHypertensionSisterPolycystic ovary syndromeSisterRelationNameStatusCommentsBrotherAliveDaughter(2)AliveFather AliveMaternal GrandmotherDeceasedMotherDeceasedPaternal GrandfatherDeceased Paternal GrandmotherDeceasedSisterAlive Social History Tobacco UseTypesPacks/DayYears UsedDateSmoking Tobacco: NeverPassive Smoke Exposure: PastSmokeless Tobacco: Never Tobacco Cessation:Counseling Given: Not Answered Alcohol UseStandard Drinks/WeekCommentsNot Currently0 (1 standard drink = 0.6 oz pure alcohol)Caffine: 1-2 cups dailyAUDIT-CAnswerDate RecordedQ1: How often do you have a drink containing alcohol?Monthly or less06/28/2023Q2: How many drinks containing alcohol do you have on a typical day when you are drinking?1 or 2 06/28/2023Q3: How often do you have six or more drinks on one occasion?Never 3PHQ-2AnswerDate RecordedPatient Health Questionnaire-2 Score0 07/24/2024CommentsNoSex and Gender InformationValueDate RecordedSex Assigned at BirthNot on fileLegal EzbGtegog50/15/2023 6:40 PM EDTGender Identity Ehpyme1211/11/2022 6:40 PM EDTSexual OrientationNot on file Last Filed Vital Signs Vital SignReadingTime TakenCommentsBlood Clrvgqiv963/7007/30/2025 10:05 AM EST Myuvm177501/31/2025 9:53 AM GUOVbcoaupqczg78.8 ??C (98.2 ??F)02/09/2024 2:09 PM EDTRespiratory Rate--Oxygen Xpvuqsxmqq28%01/31/2025 9:53 AM EDTInhaled Oxygen Concentration--Wefigl02.3 kg (212 lb 6.4 oz)07/30/2025 10:05 AM YHFPomyhl995.8 cm (5' 2.5 )07/24/2024 9:35 AM ESTBody Mass Index38.23109/23/2023 9:35 AM EST Plan of Treatment DateTypeDepartmentCare Team (Latest Contact Info)Eaclijncawb79/07/2026 10:00 AM ESTProcedure Visit [facility] [address] [address] Kate Weathers PA [address] [place] [address] Insurance
--- OUTSIDE RECORDS SUMMARY | 2025-07-30 15:02 | XMS_ITS | Encounter Summary ---
Author Organization [facility] Address [address] [place] [address] Care Team Providers Care Anesthesiologist Physician Name Role Phone Unavailable Primary Care Provider Unavailabl e Encounter Details DateTypeDepartmentCare Team (Latest Contact Info)Jyugvifvtvn23/01/2025amboo flowsheet [facility] [address] [place] [address] Kate Weathers PA [address] [place], [facility] Social History Tobacco UseTypesPacks/DayYears UsedDateSmoking Tobacco: NeverPassive [...] drinks on one occasion?Never06/28/2023HQ-2AnswerDate RecordedPatient Health Questionnaire-2 Uyhjm849/25/2024CommentsNoSex and Gender InformationValueDate RecordedSex Assigned at BirthNot on fileLegal SexFemale 11/11/2022 6:40 PM EDTGender UczkdlzcMwpjzj67/15/2023 6:40 PM EDTSexual OrientationNot on filedocumented as of this encounter Plan of Treatment DateTypeDepartmentCare Team (Latest Contact Info)Tzgujnpqrpb70/07/2026 10:00 AM ESTProcedure Visit [facility] [address] [place] [place] [address] Kate Weathers PA [address] [place] [address] documented as of this encounter Visit Diagnoses Not on filedocumented in this encounter
--- OUTSIDE RECORDS SUMMARY | 2025-07-30 15:34 | XMS_ITS | CCD ---
Author Organization [facility] Care Team Providers Care Relocation Commissioner Name Role Phone DR JERMAIN COLLINS Admitting Unavailable DR JERMAIN COLLINS Attending Unavailable DR SHAKILA GAXIOLA Primary Care Unavailable DR ELOISA BAKER V Consulting Unavailable DR JERMAIN COLLINS Consulting Unavailable Shakila Gaxiola MD Primary Care Provider SHAKILA GAXIOLA Primary Care Unavailable RADHA VELÁZQUEZ Attending Unavailable Shakila Gaxiola MD Primary Care Provider Unavailable Primary Care Provider UnavailShakila Stover MD [facility] Care Provider Breezy Salas MD Attending Provider ELLEN ROBERTS Attending Unavailable LAWRENCE LOZANO Attending Unavailable GWENDOLYN ALMAZAN Attending Unavailable GWENDOLYN ALMAZAN Referring Unavailable LAWRENCE LOZANO Attending Unavailable LAWRENCE LOZANO Attending Unavailable KATE PRIETO Attending Unavailable SHAKILA GAXIOLA Attending Unavailable KATE PRIETO Attending Unavailable LAWRENCE LOZANO Referring Unavailable LAWRENCE LOZANO Referring Unavailable JR. HIGGINBOTHAM GEORGE C Attending Unavaillisa Almazan NP, Gwendolyn Sunshine Unavailable Shakila Gaxiola MD Primary Care Provider Shakila Gaxiola MD Unavailable Shakila Gaxiola MD Primary Care Provider Allergies Allergy ClassificationReported Allergen(s)Allergy TypeDate of OnsetReaction(s) Facility (1 source)Iodine (And Iodine Containting Drugs)Drug allergy (disorder)06-10-2015 [facility] Repository (1 source)moxifloxacinDrug Gzrjonj06-85-8502Ztg [facility] (1 source)Sulfonamides (Antibiotic)Drug [facility] (disorder)[facility])moxifloxacin; Translations: [MOXIFLOXACIN]Drug Wwbrcsc50-73-5274OE intoleranceCleveland Clinic FoundationComment on above:also states she was out of her mind (7 sources)Gadolinium-Containing Contrast MediAllergy to ecqalwwwh06-32-5496[facility] ([facility] sources)Iodinated Contrast Media; Translations: [IODINATED CONTRAST MEDIA] Allergy to wzbeekqlv08-46-4072Vsdf, [facility] (20 sources)Acetaminophen / HYDROcodoneDrug Lgfkcox24-78-8178Hoadfdn, Itching [facility] (20 sources)ClarithromycinPropensity to adverse irvqrnhzs73-47-7117SnzpyxoqNTCV Healthcare (20 sources)IodineDrug Wcssjtj07-69-9477HrcmRDZX Healthcare (20 sources)NitrofurantoinDrug Uhvimma59-28-9909OonqnfxfrXQJA Healthcare (20 sources)OndansetronDrug Heskssj10-29-7125BlbghzumYDOY Healthcare (20 sources)oxyCODONEDrug Djyxqyx47-56-3568FxwwgdxDFPD Healthcare (20 sources)Sulfamethoxazole / TrimethoprimDrug Xrsxtvh49-43-1213JadsoSXKN Healthcare (20 sources)Sulfonamides (Antibiotic)Drug Yxxihyyroar77-13-5136TUAF [facility] (1 source)Sulfonamides (Antibiotic); Translations: [SULFA (SULFONAMIDE ANTIBIOTICS)]Propensity to adverse reactions to drug (disorder)04-21-2021 [facility] Rep[facility] Medications Current Medications MedicationDrug Class(es)DatesSig (Normalized)Sig (Original)benzonatate 100 mg oral capsule (6 sources)Non-narcotic AntitussiveStart: 02-09-2024 End: 34-17-4923drebcnqzirp (Tessalon) 100 MG capsule Indications: Acute cough Do not crush or chew. 1-2 tid prn for cough 30 capsule 1 02/09/2024 07/24/2024 Discontinued (Therapy completed)citalopram 20 mg oral tablet (20 sources)Serotonin Reuptake InhibitorStart: 10-65-7670twztvriqfi (CeleXA) 20 MG tablet Indications: Anxiety, generalized TAKE 1 TABLET DAILY 90 tablet 3 0 03/26/2025 Activecyclobenzaprine hydrochloride 10 mg oral tablet (17 sources)Muscle RelaxantStart: 12-22-2024 End: 29-97-7930avki 1 tablet by mouth in the morning, then take 1 tablet by mouth in the evening, then take 1 tablet by mouth at bedtimecyclobenzaprine (Flexeril) 10 MG tablet Indications: Right shoulder pain, unspecified chronicity Take 1 tablet (10 mg) by mouth in the morning and 1 tablet (10 mg) in the evening and 1 tablet (10 mg)before bedtime. Do all this for 7 days. 21 tablet 12/22/2024 Activedesonide 0.0005 mg/mg topical ointment (6 sources)CorticosteroidStart: 07-17-2024 End: 25-30-9966kafwkslf (DesOwen) 0.05 % ointment Indications: Itching Apply topically 2 (two) times a day as needed (itching) for up to 14 days 60 g 1 07/17/2024 07/31/2024 Activefamotidine 20 mg oral tablet (20 sources)Histamine-2 Receptor AntagonistStart: 07-24-2024 End: 69-76-6151yhru 1 tablet by mouth once dailyfamotidine (Pepcid) 20 MG tablet Indications: Gastroesophageal reflux disease, unspecified whether esophagitis present Take 1 tablet (20 mg) by mouth Daily 90 tablet 3 07/24/2024 Active hydroCHLOROthiazide 25 mg / lisinopril 20 mg oral tablet (20 sources)Thiazide Diuretic, Angiotensin Converting Enzyme InhibitorStart: 09-01-2023 End: 40-27-8857nqsdyaqvgp-hydroCHLOROthiazide 20-25 MG tablet Indications: Essential hypertension TAKE 1 TABLET DAILY 90 tablet 3 08/28/2024 Active hyoscyamine sulfate 0.125 mg oral tablet (18 sources)Start: 85-59-2172Pdcajnfbxbr Sulfate 0.125 mg tablet Active 0.125 MG PO 2-4 TIMES PER DAY as needed January 31, 2024 12:00am Complies with drug therapy take 1 tablet by mouth every four hours as neededhyoscyamine (Anaspaz,Levsin) 0.125 MG tablet Take 0.125 mg by mouth every 4 (four) hours if needed for cramping Activelevothyroxine sodium 0.125 mg oral tablet (20 sources)l-ThyroxineStart: 08-09-2023 End: 92-77-7997eezeysoplurlt (Synthroid, Levoxyl) 125 MCG tablet Indications: Hypothyroidism, unspecified type TAKE 1 TABLET DAILY ON AN EMPTY STOMACH 90 tablet 3 08/02/2024 Activemeloxicam 15 mg oral tablet (5 sources)Nonsteroidal Anti-inflammatory DrugStart: 02-14-2025 End: 48-80-5461sawv 1 tablet by mouth once daily at mealtimemeloxicam (Mobic) 15 MG tablet Indications: Acute hip pain, left Take 1 tablet (15 mg) by mouth Daily Take with food 30 tablet 1 02/14/2025 04/15/2025 ActivemetFORMIN hydrochloride 500 mg oral tablet (20 sources)BiguanideStart: 01-20-2024 End: 72-60-4864iqaTHAOPE (Glucophage) 500 MG tablet Indications: Polycystic ovarian syndrome TAKE 1 TABLET DAILY WITH A MEAL 90 tablet 3 01/23/2025 01/31/2025 Discontinuedpantoprazole 40 mg delayed release oral tablet (6 sources)Proton Pump InhibitorStart: 04-10-2024 End: 06-80-1693tegc 1 tablet by mouth once dailypantoprazole (ProtoNix) 40 MG EC tablet Indications: Gastroesophageal reflux disease, unspecified whether esophagitis present Take 1 tablet (40 mg) by mouth Daily 90 tablet 1 04/10/2024 07/24/2024 Discontinued (Therapy completed)predniSONE 10 mg oral tablet (4 sources)Start: 01-31-2025 End: 23-89-3023tewj 4 tablets by mouth once daily, then take 3 tablets by mouth once daily, then take 2 tablets bymouth once daily, then take 1 tablet by mouth once dailypredniSONE (Deltasone) 10 MG tablet Indications: Left hip pain Take 4 tablets (40 mg) by mouth Daily for 3 days, THEN 3 tablets (30 mg) Daily for 3 days, THEN 2 tablets (20 mg) Daily for 3 days, THEN1 tablet (10 mg) Daily for 3 days. 30 tablet 01/31/2025 02/14/2025 Discontinued (Therapy completed) promethazine hydrochloride 25 mg oral tablet (20 sources)PhenothiazineStart: 95-23-9131pqbl 1 tablet by mouth three times daily as neededPromethazine 25 mg tablet Active 25 MG PO Three times daily as needed January 31, 2024 12:00am Complies with drug therapyStart: 88-16-3338xovv 1 tablet by mouth every six hours for nauseapromethazine (Phenergan) 25 MG tablet Indications: Migraine without status migrainosus, not intractable, unspecified migraine type Take 1 tablet (25 mg) by mouth every 6 (six) hours if needed for nausea or vomiting 15 tablet 2 12/13/2023 Activerizatriptan 10 mg oral tablet (20 sources)Serotonin-1b and Serotonin-1d Receptor AgonistStart: 12-13-2023 End: 69-25-7895uzdmdzayokt (Maxalt) 10 MG tablet Indications: Migraine without status migrainosus, not intractable, unspecified migraine type Take 1 tablet (10 mg) by mouth if needed for migraine 9 tablet 3 07/24/2024 Active Semaglutde/NAM/MeCbl 2.268 mg/0.63 mL (1 source)Start: 54-41-6686Ofvengxrds/NAM/MeCbl 2.268 mg/0.63 mL Active 0.63 ML SUBCUT every week 2.52 March 26, 2025 12:00am[facility] Pre-filled Syringes using Semaglutide Base 2.268 mg/Niacinamide 1.26 mg andMethylcobalamin 5 mcg Dispense 2.52 mL - (Four 0.63 mL pre-filled syringes) Complies with drug therapySemaglutide Base (3 sources)Start: 66-20-6937ptgkym 1 mL by subcutaneous injection every week Semaglutide Base Active 0.25 ML SUBCUT every week 1 January 31, 2024 12:00am [facility] Pre-filled Syringes using Semaglutide Base. Dispense 1 mL = (Four 0.25 mL pre-filled syringes)SEMAGLUTIDE, 2 MG/DOSE, SC (17 sources)SEMAGLUTIDE, 2 MG/DOSE, SC Inject under the skin Active Completed/Discontinued Medications MedicationDrug Class(es)DatesSig (Normalized)Sig (Original)budesonide 0.032 mg/actuat metered dose nasal spray (7 sources)CorticosteroidStart: 01-31-2024 End: 72-49-4507sswo 1 spray(s) nasal route once daily as neededBudesonide 32 mcg/actuation spray,non-aerosol Discontinued 1 SPRAY INTRANASAL Daily as needed January 31, 2024 12:00am September 25, 2024 11:21am administer into each nostril1 ml methylPREDNISolone acetate 40 mg/ml injection (9 sources)CorticosteroidStart: 12-27-2024 End: 88-85-9982cxlwjlQZYLDZQsvvxj acetate (DEPO-Medrol) injection 40 mgStart: 12-27-2024 End: 49-78-005796 mg, Intra-articular, Once PRN Procedure, Starting on Wed12/27/24 at 0816, For 1 doseStart: 12-22-2024 End: 99-90-1821iolwdrWEJLHCIxiciu (Medrol Dospak) 4 MG tablets Indications: Right shoulder pain, unspecified chronicity Follow schedule on package instructions 21 tablet 12/22/2024 12/29/2024 Activerimegepant 75 mg disintegrating oral tablet (13 sources)Start: 12-02-2023 End: 00-12-7894Ieknlgwndi (Nurtec Odt) 75 mg tablet,disintegrating Discontinued 75 MG PO .prn as needed January 31, 2024 12:00am July 03, 2024 11:23am Semaglutide Base 0.3 mg/0.25 mL (3 sources)Start: 01-31-2024 End: 86-44-8063ncqbdc 1 mL by subcutaneous injection every weekSemaglutide Base 0.3 mg/0.25 mL Discontinued 0.25 ML SUBCUT every week January 31, 2024 12:00am July 03, 2024 11:23am [facility] Pre-filled Syringes using Semaglutide Base. Dispense1 mL = (Four 0.25 mL pre-filled syringes)Start: 01-31-2024 End: 00-77-3630hafeqo 1 mL by subcutaneous injection every weekSemaglutide Base 0.3 mg/0.25 mL Discontinued 0.25 ML SUBCUT every week January 30, 2024 11:00pm July 03, 2024 10:23am [facility] Pre-filled Syringes using Semaglutide Base. Dispense1 mL = (Four 0.25 mL pre-filled syringes)Semaglutide Base 0.6 mg/0.5 mL (5 sources)Start: 09-25-2024 End: 88-27-8173qssdup 1 mL by subcutaneous injection every weekSemaglutide Base 0.6 mg/0.5 mL Discontinued 0.5 ML SUBCUT every week September 25, 2024 11:46am January 10, 2025 6:12pm [facility] Pre-filled Syringes using Semaglutide Base. Dispense 2 mL = (Four 0.5 mL pre-filled syringes)Start: 02-35-3271irqhlf 1 mL by subcutaneous injection every weekSemaglutide Base 0.6 mg/0.5 mL Active 0.5 ML SUBCUT every week September 25, 2024 11:46am [facility] Pre-filled Syringes using Semaglutide Base. Dispense 2 mL = (Four 0.5 mL pre-filledsyringes)Start: 07-03-2024 End: 29-92-3422bagzol 1 mL by subcutaneous injection every weekSemaglutide Base 0.6 mg/0.5 mL Discontinued 0.5 ML SUBCUT every week July 03, 2024 1:00am September 25, 2024 11:46am [facility] Pre-filled Syringes using Semaglutide Base. Dispense 2 mL = (Four 0.5 mL pre-filled syringes)Start: 13-87-4450oscdbw 1 mL by subcutaneous injection every weekSemaglutide Base 0.6 mg/0.5 mL Active 0.5 ML SUBCUT every week July 03, 2024 12:00am [facility] Pre-filled Syringes using Semaglutide Base. Dispense 2 mL = (Four 0.5 mL pre-filledsyringes)Semaglutide Base 1.2 mg/0.33 mL (2 sources)Start: 11-20-2024 End: 15-50-6127qnpckm 1 mL by subcutaneous injection every weekSemaglutide Base 1.2 mg/0.33 mL Discontinued 0.33 ML SUBCUT every week 1.November 20, 2024 12:00am January 10, 2025 6:12pm [facility] Pre-filled Syringes using Semaglutide Base. Dispense1.32 mL = (Four 0.33 mL pre-filled syringes)Start: 62-32-6866tlrsbk 1 mL by subcutaneous injection every weekSemaglutide Base 1.2 mg/0.33 mL Active 0.33 ML SUBCUT every week 1.32 November 20, 2024 12:00am [facility] Pre-filled Syringes using Semaglutide Base. Dispense 1.32 mL = (Four 0.33 mL pre-filled syringes)SEMAGLUTIDE,0.25 OR 0.5MG/DOS, SC (9 sources)Start: 07-03-2024 End: 13-80-8269GYXEVYJYCDV,0.25 OR 0.5MG/DOS, SC Compounded 07/03/2024 12/22/2024 DiscontinuedStart: 24-59-8579EWIKSYMMTWD,0.25 OR 0.5MG/DOS, SC Compounded 07/03/2024 ActiveSemaglutide/NAM/MeCbl 1.8 mg/0.5 mL (3 sources)Start: 03-12-2025 End: 87-54-4243oipkao 4 ug by subcutaneous injection every week Semaglutide/NAM/MeCbl 1.8 mg/0.5 mL Discontinued 0.5 ML SUBCUT every week March 12, 2025 11:57amJuly 2024 8:50am [facility] Pre-filled Syringes using Semaglutide Base 1.8 mg/Niacinamide 1 mg and Methylcobalamin 4 mcg Dispense 2 mL - (Four 0.5 mL pre-filled syringes). The patient would like to take the 3 compounded agents for weight management.Start: 01-29-2025 End: 01-85-6256iercmn 4 ug by subcutaneous injection every week Semaglutide/NAM/MeCbl 1.8 mg/0.5 mL Discontinued 0.5 ML SUBCUT every week January 29, 2025 8:58am March 12, 2025 11:57am [facility] Pre-filled Syringes using Semaglutide Base 1.8 mg/Niacinamide 1 mg and Methylcobalamin 4 mcg Dispense 2 mL - (Four 0.5 mL pre-filled syringes). The patient would like to take the 3 compounded agents for weight management.Start: 01-10-2025 End: 99-04-0778Hsvggxhlcly/NAM/MeCbl 1.8 mg/0.5 mL Discontinued 0.5 ML SUBCUT every week January 10, 2025 12:00am January 29, 2025 8:58am [facility] Pre-filled Syringes using Semaglutide Base 1.8 mg/Niacinamide 1 mg and Methylcobalamin 4 mcg Dispense 2 mL - (Four 0.5 mL pre-filled syringes) Problems Active Problems Problem ClassificationProblemDateDocumented DateEpisodic/ChronicAnxiety disorders (20 sources)Anxiety; Translations: [Anxiety disorder, unspecified]Onset: 007974-41-1237VduqipwJfpspzvwo of lipid metabolism (20 sources)Hypertriglyceridemia; Translations: [Pure hyperglyceridemia]Onset: 503710-19-4032NyzzygeAeqbnwlhwnaqf (20 sources)Endometriosis (clinical); Translations: [Endometriosis, unspecified] Onset: 742539-23-4594ZgmgvdhDuqkunndje disorders (20 sources)Gastroesophageal reflux disease; Translations: [Gastro-esophageal reflux disease without esophagitis]Onset: 448420-73-0849YtikpqyRmqjqqjcy hypertension (20 sources)Hypertensive disorder; Translations: [Essential (primary) hypertension]Onset: 833665-70-5812FgnxmhwGdithqml; including migraine (20 sources)Migraine; Translations: [Migraine, unspecified, not intractable, without status migrainosus]Onset: 387889-65-2679PzotwgfHwmagvz and fatigue (7 sources)Fatigue; Translations: [Other fatigue]49-79-2660PqxewavoIqap disorders (20 sources)Depressive disorder; Translations: [Depression]Onset: 06-24-2023 81-27-8156JtztwwoRoeuphhkdcc deficiencies (20 sources)Vitamin D deficiency; Translations: [Vitamin D deficiency, unspecified]Onset: 980945-23-5120NgjmdjuNfekl connective tissue disease (1 source)Calcific tendinitis, unspecified site; Translations: [Calcific tendinitis, unspecified site]Onset: 36-63-2281CfvnlmfxTbvuo connective tissue disease (4 sources)Calcific tendinitis of right shoulder; Translations: [Calcific tendinitis of right shoulder]21-51-3521UeagtnhsMitya connective tissue disease (2 sources)Pain of left heel; Translations: [Pain in left foot]01-31-2025 EpisodicOther connective tissue disease (2 sources)Ganglion cyst of right dorsal wrist; Translations: [Ganglion, right wrist]46-67-9495YepjvlqgBaynx endocrine disorders (20 sources)Polycystic ovary syndrome; Translations: [Polycystic ovarian syndrome]Onset: 733033-25-3047JldsqhwVekeq endocrine disorders (2 sources)Polycystic ovarian syndrome; Translations: [Polycystic ovaries] 63-64-5586NuirojrDuzvs female genital disorders (20 sources)Premenstrual tension syndrome; Translations: [Premenstrual tension syndrome]Onset: 298345-84-0702HsyecjzHxcun gastrointestinal disorders (20 sources)Irritable bowel syndrome; Translations: [Irritable bowel syndrome without diarrhea]Onset: 616489-48-0690HclwhsoTqlot gastrointestinal disorders (7 sources)Heartburn; Translations: [Heartburn]71-02-2872EihdbpwgPtivb gastrointestinal disorders (2 sources)Heartburn; Translations: [Heartburn]89-25-2661SupoouotVmovd inflammatory condition of skin (2 sources)Itching ; Translations: [Pruritus, unspecified]89-36-2415Ivfwcloq Other liver diseases (20 sources)Steatosis of liver; Translations: [Fatty (change of) liver, not elsewhere classified]Onset: 863021-07-2898TmdsatcRuvlr lower respiratory disease (7 sources)Snoring; Translations: [Snoring]61-53-3399LdllcidoOuith lower respiratory disease (2 sources)Snoring; Translations: [Other respiratory abnormalities]01-31-2024 EpisodicOther non-traumatic joint disorders (2 sources)Shoulder painOnset: 69-64-2093YahzbapvHaxhj non-traumatic joint disorders (4 sources)Pain in right shoulder; Translations: [Pain in joint, shoulder region]70-38-3400SrfzfnjrDwqzw non-traumatic joint disorders (4 sources)Disorder of shoulder; Translations: [Other specified joint disorders, right shoulder]17-56-9758MqsfizumHjzfs non-traumatic joint disorders (4 sources)Hip pain; Translations: [Pain in left hip]08-86-5787SjxwgokoDhcca non-traumatic joint disorders (4 sources)Pain of right wrist; Translations: [Pain in right wrist]03-28-2025 EpisodicOther non-traumatic joint disorders (2 sources)Pain of left wrist; Translations: [Pain in left wrist]03-28-2025 EpisodicOther nutritional; endocrine; and metabolic disorders (20 sources)Body mass index 40+ - severely obese; Translations: [Body mass index (BMI) 40.0-44.9, adult]Onset: 304440-50-9618WzwdydeHdzmy nutritional; endocrine; and metabolic disorders (2 sources)Body mass index (BMI) 40.0-44.9, adult; Translations: [Body Mass Index 40.0-44.9, adult]39-72-2088StoakaeCppvg nutritional; endocrine; and metabolic disorders (20 sources)Hypomagnesemia; Translations: [Hypomagnesemia]Onset: 11-02-2022 06-01-2039UcytovcVxrqi nutritional; endocrine; and metabolic disorders (20 sources)Metabolic syndrome X; Translations: [Metabolic syndrome]Onset: 489286-15-8592DupdwpbPubzi nutritional; endocrine; and metabolic disorders (4 sources)Obese class II; Translations: [Class 2 obesity]06-98-1158KayvhrcCzgvy nutritional; endocrine; and metabolic disorders (6 sources)Abnormal weight gain; Translations: [Abnormal weight gain]01-31-2024 EpisodicOther nutritional; endocrine; and metabolic disorders (2 sources)Abnormal weight gain; Translations: [Abnormal weight gain]01-31-2024 EpisodicOther screening for suspected conditions (not mental disorders or infectious disease) (6 sources)Encounter for screening mammogram for malignant neoplasm of breast; Translations: [Patient encounter status]Onset: 04-51-7800EiqbkdyjNhpwv upper respiratory disease (20 sources)Non-allergic rhinitis; Translations: [Chronic rhinitis]Onset: 719370-72-5267TuqdksbSwzwnind codes; unclassified (1 source)Family history of malignant neoplasm of breast; Translations: [FAMILY HX MALIG NEOPLASM OF BREAST]Onset: 54-44-3984LkyqfncmRitolhwscia; intervertebral disc disorders; other back problems (20 sources)Degeneration of cervical intervertebral disc; Translations: [Other cervical disc degeneration, unspecified cervical region]Onset: 06-24-2023 84-21-7674JoqmdnmEgzheezncus; intervertebral disc disorders; other back problems (9 sources)Low back pain; Translations: [Low back pain]71-71-0103WwodmlpiOsxbhit disorders (20 sources)Hypothyroidism; Translations: [Hypothyroidism, unspecified]Onset: hronic Past or Other Problems Problem ClassificationProblemDateDocumented DateEpisodic/ChronicDiabetes mellitus without complication (20 sources)Prediabetes; Translations: [Prediabetes]Onset: EpisodicFluid and electrolyte disorders (20 sources)Hypokalemia; Translations: [Hypokalemia]Onset: 11-05-2022 Resolved: 410567-59-7729AtbppruoYfqvipoyouy chest pain (20 sources)Chest pain; Translations: [Chest pain, unspecified]Onset: 06-16-2021 Resolved: 507861-07-8641NytbmovaOcqrw connective tissue disease (20 sources)Fibromyalgia; Translations: [Fibromyalgia]Onset: 06-24-2023 22-44-6412Bteiwajf Results Test NameValueInterpretationReference RangeFacilityXR Wrist - left 2 Viewson [id number] Result: AP and Lateral Left Wrist: Bone Structure: No acute fracture or dislocation, Mild degenerative changes CMC joint of thumb. Joint Spaces: The carpal joint spaces are well preserved, no joint space narrowing, Scapho-lunate interval within normal limit. Soft tissue: No swelling or calcification Impression: No acute bony process Left [facility] Radiology Study observation (narrative)[facility] 2 Viewson [id number] Result: AP and Lateral Right Wrist: Bone Structure: No acute fracture or dislocation, mild degenerative changes CMC joint of thumb. Joint Spaces: The carpal joint spaces are well preserved, no joint space narrowing, Scapho-lunate interval within normal limit. Soft tissue: No swelling or calcification Impression: No acute bony process Right [facility]UNC [facility] observation (narrative)[facility]OM[facility] HealthcareUrinalysis macro (dipstick) panel (U)on 74-35-1760Zbywmhzgg, UANegativeNegative - 4(70) +++ mg/dL [facility] HealthcareBlood, UAPositiveNegative - 50 Dawson/mcLNOMS HealthcareComment on above:traceClarity, UAClearNOMS HealthcareColor, UAYellowNOMS HealthcareGlucose, UANegativeNegative - 2000(110) ++++ mg/dLNOID HealthcareInterpretation and review of laboratory resultsAbnormalNOMS HealthcareKetones, UANegativeNegative - 160(16) ++++ mg/dLNOID HealthcareLeukocytes, UANegativeNegative - 500+++ Sara/mcLNOID HealthcareNitrite, UANegativeNegative - PositiveNOMS HealthcarepH, UA65 - 9NOMS HealthcareProtein, UANegativeNegative - 2000(20) ++++ mg/dLNOMS HealthcareSpec Grav, UA1.0151 - 1.03NOID HealthcareUrobilinogen, UA1.00.2 - 12 mg/dLNOMS HealthcareNOMS HealthcareXR HIP 2 OR 3 VW LEFTon 47-58-0977RD HIP 2 OR 3 VW LEFTTitle of exam: XR HIP 2 OR 3 VW LEFT Reason for exam: Left hip pain anteriorly and posteriorly for five days, no trauma Comparison: None 3 images. Lumbar spondylosis noted. The sacral struts are intact. Arthritic changes of the sacroiliac joints. Pelvic ring is intact. The hips are normally located. Trabecular pattern of both hips is preserved. Hypertrophy of the acetabular rim bilaterally. The femoral heads are smooth without spurring or aggressive appearing lesion. Enthesophytes of the iliac crests and greater trochanters bilaterally. IMPRESSION: 1. No acute bony abnormalities radiographically. 2. Arthritic spurring versus pincer anatomy of the acetabular roofs bilaterally. 3. Lumbar spondylosis. Osteoarthritic pattern of the sacroiliac joints. Dictated on: 01/31/2025 10:06 AM This report has been electronically signed and approved by the interpreting Radiologist. This report is generated using voice recognition reporting ([employer]). On occasion, [employer] erroneously drops words from the report or replaces the spoken word with a similar sounding word. Please call with any questions/concerns regarding the report.NormalNot AvailableXR Hip - left 3 Views on 01-31-2025 Title of exam: XR HIP 2 OR 3 VW LEFT Reason for exam: Left hip pain anteriorly and posteriorly for five days, no trauma Comparison: None 3 images. Lumbar spondylosis noted. The sacral struts are intact. Arthritic changes of the sacroiliac joints. Pelvic ring is intact. The hips are normally located. Trabecular pattern of both hips is preserved. Hypertrophy of the acetabular rim bilaterally. The femoral heads are smooth without spurring or aggressive appearing lesion. Enthesophytes of the iliac crests and greater trochanters bilaterally. IMPRESSION: 1. No acute bony abnormalities radiographically. 2. Arthritic spurring versus pincer anatomy of the acetabular roofs bilaterally. 3. Lumbar spondylosis. Osteoarthritic pattern of the sacroiliac joints. Dictated on: 01/31/2025 10:06 AM This report has been electronically signed and approved by the interpreting Radiologist. This report is generated using voice recognition reporting ([employer]olt [employer]). On occasion, Incuvocribe erroneously drops words from the report or replaces the spoken word with a similar sounding word. Please call with any questions/concerns regarding the report. Stoney Bryan MD - 01/31/2025 Title of exam: XR HIP 2 OR 3 VW LEFT Reason for exam: Left hip pain anteriorly and posteriorly for five days, no trauma Comparison: None 3 images. Lumbar spondylosis noted. The sacral struts are intact. Arthritic changes of the sacroiliac joints. Pelvic ring is intact. The hips are normally located. Trabecular pattern of both hips is preserved. Hypertrophy of the acetabular rim bilaterally. The femoral heads are smooth without spurring or aggressive appearing lesion. Enthesophytes of the iliac crests and greater trochanters bilaterally. IMPRESSION: 1. No acute bony abnormalities radiographically. 2. Arthritic spurring versus pincer anatomy of the acetabular roofs bilaterally. 3. Lumbar spondylosis. Osteoarthritic pattern of the sacroiliac joints. Dictated on: 01/31/2025 10:06 AM This report has been electronically signed and approved by the interpreting Radiologist. This report is generated using voice recognition reporting (Bolt [employer]). On occasion, Incuvocribe erroneously drops words from the report or replaces the spoken word with a similar sounding word. Please call with any questions/concerns regarding the report. [facility] HealthcareRadiology Study observation (narrative)[facility] HealthcareXR Hip - left 3 ViewsOrdered By: Stoney Higginbotham on 75-67-5533GUJIUniversity Health Lakewood Medical Center Work Phone: no Panel Informationon 08-51-0121QevahoyBRIDGER Oleary 12/27/2024 8:26 AM L Inj/Asp: R subacromial bursa on 12/27/2024 8:16 AM Indications: pain Details: 21 G needle, posterior approach Medications: 40 mg methylPREDNISolone acetate 40 MG/ML Outcome: tolerated well, no immediate complications Utilizing aseptic technique with universal precautions . Pt given injection Right Shoulder SA space (Code 95165 RT) Procedure, treatment alternatives, risks and benefits explained, specific risks discussed. Consent was given by the patient. [facility]XR SH[facility] RT MIN 2 VWSon 41-76-3047RE SHOULDER RT MIN 2 VWSXR SHOULDER RT MIN 2 VWS XR SHOULDER RT MIN 2 VWS HISTORY: Right shoulder pain COMPARISON: Chest radiograph 06/16/2021. FINDINGS: No acute fracture or dislocation. Degenerative changes including joint space narrowing at the right AC joint. Tiny calcific deposit adjacent to the greater tubercle of the humerus. IMPRESSION: * No acute osseous abnormality. * Degenerative findings suggestive of early calcific tendinitis of the supraspinatus tendon. Approved by Resident Isaiah Valladares MD on 12/22/2024 1:51 AM I, Gonzalo Lugo MD have personally reviewed the image(s) and agree with and/or edited the report Finalized by Gonzalo Lugo MD on 12/22/2024 1:55 AMNormalNewark Hospitalca [facility] MM TOMOSYNTHESIS SCREENING BIon 26-18-7225[place] [address] Mammography Report Signed Patient: CHANDA STEVE MR#: [id number] : 1975 Acct:[id number] Age/Sex: 48 / F ADM Date: 08/28/24 Loc: MAMMO Attending Dr: Jermain Collins D.O. Ordering Physician: Jermain Collins D.O. Results: Date of Service: 08/28/24 Follow Up: Procedure(s): MM tomosynthesis screening BI Accession Number(s): [id number] cc: Jermain Collins D.O.; SHAKILA GAXIOLA Patient Name: CHANDA STEVE MR#: [id number] : 1975 Exam Date: 08/28/2024 Ordering Doctor: DR Jermain Collins . RADIOLOGY REPORT PROCEDURE: MM TOMOSYNTHESIS SCREENING BI COMPARISON: MM TOMOSYNTHESIS SCREENING BI, 08/09/2023. MG MAMM SCREEN 3D ANGÉLICA CAD, 08/03/2022. MG MAMM SCREEN 3D ANGÉLICA CAD, 07/28/2021. MG MAMM ANGÉLICA SCRN W CAD DIG, 03/14/2015. INDICATIONS: Screening Calculator Name NCI Breast Cancer Risk Assessment Tool 5 Year Breast Cancer Risk 1.00% Lifetime Breast Cancer Risk 10.00% Personal Breast Cancer No Personal Ovarian Cancer No Treatments None Family Cancers Aunt-maternal with breast cancer at age 50. LOCATION: [facility] BREAST COMPOSITION: The breasts are heterogeneously dense,which may obscure small masses. FINDINGS: DIAGNOSTIC CATEGORY 1--NEGATIVE. RIGHT BREAST: No significant suspicious finding. No significant change has occurred. LEFT BREAST: No significant suspicious finding. No significant change has occurred. RECOMMENDATIONS: ROUTINE MAMMOGRAM AND CLINICAL EVALUATION IN 12 MONTHS. PLEASE NOTE: A NORMAL MAMMOGRAM DOES NOT EXCLUDE THE POSSIBILITY OF BREAST CANCER. A CLINICALLY SUSPICIOUS PALPABLE LUMP SHOULD BE BIOPSIED. Dictated by: Corby Manzano M.D. on 08/28/2024 at 17:01 Approved by: Corby Manzano M.D. on 08/28/2024 at 17:03 Dictated By: Corby Manzano M.D. Signed By: 08/28/241704 DD/ 03 TD/TT: Gasoline Attendant:TBHRadiology, Radiologist, - 08/28/2024 [place] [address] Mammography Report Signed Patient: CHANDA STEVE MR#: [id number] : 1975 Acct:[id number] Age/Sex: 48 / F ADM Date: 08/28/24 Loc: MAMMO Attending Dr: Jermain Collins D.O. Ordering Physician: Jermain Collins D.O. Results: Date of Service: 08/28/24 Follow Up: Procedure(s): MM tomosynthesis screening BI Accession Number(s): [id number] cc: Jermain Collins D.O.; SHAKILA GAXIOLA Patient Name: CHANDA STEVE MR#: [id number] : 1975 Exam Date: 08/28/2024 Ordering Doctor: DR Jermain Collins . RADIOLOGY REPORT PROCEDURE: MM TOMOSYNTHESIS SCREENING BI COMPARISON: MM TOMOSYNTHESIS SCREENING BI, 08/09/2023. MG MAMM SCREEN 3D ANGÉLICA CAD, 08/03/2022. MG MAMM SCREEN 3D ANGÉLICA CAD, 07/28/2021. MG MAMM ANGÉLICA SCRN W CAD DIG, 03/14/2015. INDICATIONS: Screening Calculator Name NCI Breast Cancer Risk Assessment Tool 5 Year Breast Cancer Risk 1.00% Lifetime Breast Cancer Risk 10.00% Personal Breast Cancer No Personal Ovarian Cancer No Treatments None Family Cancers Aunt-maternal with breast cancer at age 50. LOCATION: [facility] BREAST COMPOSITION: The breasts are heterogeneously dense,which may obscure small masses. FINDINGS: DIAGNOSTIC CATEGORY 1--NEGATIVE. RIGHT BREAST: No significant suspicious finding. No significant change has occurred. LEFT BREAST: No significant suspicious finding. No significant change has occurred. RECOMMENDATIONS: ROUTINE MAMMOGRAM AND CLINICAL EVALUATION IN 12 MONTHS. PLEASE NOTE: A NORMAL MAMMOGRAM DOES NOT EXCLUDE THE POSSIBILITY OF BREAST CANCER. A CLINICALLY SUSPICIOUS PALPABLE LUMP SHOULD BE BIOPSIED. Dictated by: Corby Manzano M.D. on 08/28/2024 at 17:01 Approved by: Corby Manzano M.D. on 08/28/2024 at 17:03 Dictated By: Corby Manzano M.D. Signed By: 08/28/241704 DD/ 03 TD/TT: Gasoline Attendant: [facility] SystemRadiology Study observation (narrative)[facility] TOMOSYNTHESIS SCREENING BIOrdered By: Radiologist Radiology on 17-18-4767NLRU [employer] Work Phone: IGP,APTIMA HPV,AGE GDLNon 24-26-3932NGM GDLN ACOG TESTINGNote.[facility] HealthcareComment on above:TESTS RESULT FLAG UNITS REF RANGE LAB Clinician Provided Cytology Information Source.............Cervix;Endocervix No. of containers..01 ThinPrep Vial Age Algo ACOG Mary... - FLAG LEGEND: L-Low Normal,H-High Normal,LL-Alert Low,HH-Alert High <-Panic Low,>-Panic High,A-Abnormal,AA-Critical Abnormal Performed at: 01 =G [address] [place] [address] Rubina Barrios MD, HPV APTIMANegativeNegativeNOMS HealthcareComment on above:This nucleic acid amplification test detects fourteen high- risk HPV types (16,18,31,33,35,39,45,51,52,56,58,59,66,68) without differentiation. Performed at: =[address] [id number] Mill Operator Helper: Rubina Barrios MD, Phone: [phone] Performed at: [address] [id number] Mill Operator Helper: Rubina Barrios MD, Phone: [phone] IGP, APTIMA HPV, RFX 16/18,45Note.[facility]S HealthcareComment on above:TESTS RESULT FLAG UNITS REF RANGE LAB DIAGNOSIS: 02 NEGATIVE FOR INTRAEPITHELIAL LESION OR MALIGNANCY. Specimen adequacy: 02 Satisfactory for evaluation. Endocervical and/or squamous metaplastic cells (endocervical component) are present. Areas of partially obscuring inflammatory exudate are present. Performed by: 02 Ariella Shelton, Home Inspector ([facility]) . 02 Note: Note 02 The Pap smear is a screening test designed to aid in the detection of premalignant and malignant conditions of the uterine cervix. It is not a diagnostic procedure and should not be used as the sole means of detecting cervical cancer. Both false-positive and false-negative reports do occur. Test Methodology: Note 02 The That{img}(R) Press Tender Smoke Signal was unable to read this specimen. Therefore a manual review was performed. FLAG LEGEND: L-Low Normal,H-High Normal,LL-Alert Low,HH-Alert High <-Panic Low,>-Panic High,A-Abnormal,AA-Critical Abnormal Performed at: 02 [facility] [address] [place] [address] Rubina Barrios MD, HPV Genotype Reflex Note 02 Criteria not met, HPV Genotype not performed. Criteria not met, HPV Genotype not performed. BRUSH-SPATULA CERVIX ENDOCERVIX CLINISYNCNOMS HealthcareLaboratory - Chemistry and Chemistry - challenge [id number] T4 [Mass/Vol]1.3 ng/dLCleveland Clinic FoundationAlbumin [Mass/Vol]4.2 g/dLCleveland Clinic FoundationALP [Catalytic activity/Vol] 64 U/LFUniversity Hospitals St. John Medical CenterALT [Catalytic activity/Vol]19 U/L [facility] FoundationAST [Catalytic activity/Vol]16 U/LFUniversity Hospitals St. John Medical CenterBilirubin [Mass/Vol]0.5 mg/dLCleveland Clinic FoundationCalcium [Mass/Vol]10.3 mg/dLCleveland Clinic FoundationChloride [Moles/Vol]104 mmol/LFUniversity Hospitals St. John Medical CenterCO2 [Moles/Vol]28 mmol/L [facility] FoundationCreatinine [Mass/Vol]0.72 mg/dLCleveland Clinic FoundationGlucose [Mass/Vol]91 mg/dLCleveland Clinic FoundationPotassium [Moles/Vol]4.1 mmol/LFUniversity Hospitals St. John Medical CenterProtein [Mass/Vol]6.5 g/dLClermont County Hospitalodium [Moles/Vol]138 mmol/L [facility] FoundationUrea nitrogen [Mass/Vol]14 mg/dLCleveland Clinic FoundationCholesterol [Mass/Vol]167 mg/dLCleveland Clinic FoundationCholesterol in HDL [Mass/Vol]50 mg/dLCleveland Clinic Foundation Cholesterol in LDL [Mass/Vol]85 mg/dLCleveland Clinic Foundation Cholesterol.total/Cholesterol in HDL [Mass ratio]3.3 {ratio}[facility] Clinic FoundationTriglyceride [Mass/Vol]234 mg/dLCleveland Clinic Foundation Laboratory - Hematology and Cell countson 66-49-0942VqS9x (Bld) [Mass fraction] 5.4 %[facility] Clinic FoundationNo Panel Informationon 12-02-707600- Hydroxy Vitamin D Total65 ng/mLCleveland Clinic FoundationThyroid Stimulating Hormone 3rd Gen1.11[facility] FoundationMM TOMOSYNTHESIS SCREENING BIon 03-34-5626Duxyxdxuf, RadiologistMD - 11/03/2023 [place] [address] Mammography Report Signed Patient: CHANDA STEVE MR#: [id number] : 1975 Acct:[id number] Age/Sex: 47 / F ADM Date: 08/09/23 Loc: MAMMO Attending Dr: Jermain Collins D.O. Ordering Physician: Jermain Collins D.O. Results: Date of Service: 08/09/23 Follow Up: Procedure(s): MM tomosynthesis screening BI Accession Number(s): [id number] cc: Jermain Collins D.O.; SHAKILA GAXIOLA Patient Name: CHANDA STEVE MR#: [id number] : 1975 Exam Date: 08/09/2023 Ordering Doctor: DR Jermain Collins . RADIOLOGY REPORT PROCEDURE: MM TOMOSYNTHESIS SCREENING BI COMPARISON: MG MAMM SCREEN 3D ANGÉLICA CAD, 07/28/2021. MG MAMM SCREEN 3D ANGÉLICA CAD, 08/03/2022. INDICATIONS: Screening Calculator Name NCI Breast Cancer Risk Assessment Tool 5 Year Breast Cancer Risk 1.00% Lifetime Breast Cancer Risk 10.20% Personal Breast Cancer No Personal Ovarian Cancer No Treatments None Family Cancers Aunt-maternal with breast cancer at age 50. LOCATION: [facility] BREAST COMPOSITION: Heterogeneously dense,which may obscure [...] LUMP SHOULD BE BIOPSIED. Dictated by: Eloisa Baker MD on 08/09/2023 at 13:34 Approved by: Eloisa Baker MD on 08/09/2023 at 13:40 Dictated By: Eloisa Baker M.D. Signed By: 08/09/23 1341 DD/ 1340 TD/TT: Gasoline Attendant: [facility] HealthcareRadiology, RadiologistMD - 08/09/2023 [place] [address] Mammography Report Signed Patient: CHANDA STEVE MR#: [id number] : 1975 Acct:[id number] Age/Sex: 47 / F ADM Date: 08/09/23 Loc: MAMMO Attending Dr: Jermain Collins D.O. Ordering Physician: Jermain Collins D.O. Results: Date of Service: 08/09/23 Follow Up: Procedure(s): MM tomosynthesis screening BI Accession Number(s): [id number] cc: Jermani Collins D.O.; SHAKILA GAXIOLA Patient Name: CHANDA STEVE MR#: [id number] : 1975 Exam Date: 08/09/2023 Ordering Doctor: DR Jermain Collins . RADIOLOGY REPORT PROCEDURE: MM TOMOSYNTHESIS SCREENING BI COMPARISON: MG MAMM SCREEN 3D ANGÉLICA CAD, 07/28/2021. MG MAMM SCREEN 3D ANGÉLICA CAD, 08/03/2022. INDICATIONS: Screening Calculator Name NCI Breast Cancer Risk Assessment Tool 5 Year Breast Cancer Risk 1.00% Lifetime Breast Cancer Risk 10.20% Personal Breast Cancer No Personal Ovarian Cancer No Treatments None Family Cancers Aunt-maternal with breast cancer at age 50. LOCATION: [facility] BREAST COMPOSITION: Heterogeneously dense,which may obscure [...] LUMP SHOULD BE BIOPSIED. Dictated by: Eloisa Baker MD on 08/09/2023 at 13:34 Approved by: Eloisa Baker MD on 08/09/2023 at 13:40 Dictated By: Eloisa Baker M.D. Signed By: 08/09/23 1341 DD/ 1340 TD/TT: Gasoline Attendant: OIMD Diaz Informationon 74-31-7419[place] [address] Mammography Report Signed Patient: CHANDA STEVE MR#: [id number] : 1975 Acct:[id number] Age/Sex: 47 / F ADM Date: 08/09/23 Loc: MAMMO Attending Dr: Jermain Collins D.O. Ordering Physician: Jermain Collins D.O. Results: Date of Service: 08/09/23 Follow Up: Procedure(s): MM tomosynthesis screening BI Accession Number(s): [id number] cc: Jermain Collins D.O.; SHAKILA GAXIOLA Patient Name: CHANDA STEVE MR#: [id number] : 1975 Exam Date: 08/09/2023 Ordering Doctor: DR Jermain Collins . RADIOLOGY REPORT PROCEDURE: MM TOMOSYNTHESIS SCREENING BI COMPARISON: MG MAMM SCREEN 3D ANGÉLICA CAD, 07/28/2021. MG MAMM SCREEN 3D ANGÉLICA CAD, 08/03/2022. INDICATIONS: Screening Calculator Name NCI Breast Cancer Risk Assessment Tool 5 Year Breast Cancer Risk 1.00% Lifetime Breast Cancer Risk 10.20% Personal Breast Cancer No Personal Ovarian Cancer No Treatments None Family Cancers Aunt-maternal with breast cancer at age 50. LOCATION: [facility] BREAST COMPOSITION: Heterogeneously dense,which may obscure [...] LUMP SHOULD BE BIOPSIED. Dictated by: Eloisa Baker MD on 08/09/2023 at 13:34 Approved by: Eloisa Baker MD on 08/09/2023 at 13:40 Dictated By: Eloisa Baker M.D. Signed By: 08/09/23 1341 DD/ 1340 TD/TT: Gasoline Attendant:TBHRadiology Study observation (narrative)[facility] Panel InformationOrdered By: Radiologist Radiology on 08-09-2023 [facility] [employer] Work Phone: cytology Cervical or vaginal smear or scraping studyon 25-89-8481VNDM HealthcareMG MAMM SCREEN 3D ANGÉLICA CADon 48-62-9409GO MAMM SCREEN 3D ANGÉLICA CADPatient: CHANDA STEVE Exam Date: 08/03/2022 : 1975 Gender:F Ordering : DR JERMAIN COLLINS . Admission #: [id number] Family : Order #: [id number] CLICK HERE TO VIEW EXAM RADIOLOGY REPORT [...] breast cancer at age 49. LOCATION: [facility] BREAST COMPOSITION: Heterogeneously dense,which may obscure [...] LUMP SHOULD BE BIOPSIED. Dictated by: Eloisa Baker MD on 08/03/2022 at 12:49 Approved by: Eloisa Baker MD on 08/03/2022 at 12:50[facility] HospitalQ - CULTURE,URINE,ROUTINEon 49-05-0272OLEQVUH, URINE, ROUTINESEE NOTENormalNortabrazo scottsdale campusn [place] Medical SpecialistComment on above:Order Comment: [facility] Testing performed at: QPT, [facility], [address] [place] [address], [address] [place] [address], [id number], Licensed Clinical Psychologist: Freddy Garcia MD [facility] Collection Date/Time: [id number] [facility] Results Received Date/Time: [id number] [facility] Reported Date/Time: [id number] Comment: CULTURE, URINE, ROUTINE Micro Number: [id number] Test Status: Final Specimen Source: Urine Specimen Quality: Adequate Result: No GrowthPerformed By: #### [id number] #### [facility] Default [address] [place], [place] [address]CO Abdomen Single View (KUB)*on 39-76-1106YB Abdomen Single View (KUB)*FINDINGS: Renal shadows and the course of both [...] and signed by Ramses Alvarez on 12/11/2021 0656NormalNorthern [facility] Vital Signs Date TimeVital SignValuePerforming IrllneblwOlefoivk93-88-2626 08:32-0400Body wfeuny527.02 cmShakila Gaxiola MD Work Phone: [phone]07-28-2025 08:32-0400 Body mass index (BMI) [Ratio]39.2 kg/m2Shakila Gaxiola MD Work Phone: [phone]07-28-2025 08:32-0400 Body fotaly266.4 kgShakila Gaxiola MD Work Phone: [phone]07-28-2025 08:32-0400 Diastolic blood twajolrs24 mm[Hg]Shakila Gaxiola MD Work Phone: [phone]07-28-2025 08:32-0400 Heart rate75 /Ghislaine Gaxiola MD Work Phone: [phone] [place], [place] [address]007-28-2025 08:32-0400 Respiratory rate18 /Ghislaine Gaxiola MD Work Phone: [phone]07-28-2025 08:32-0400 SaO2% (BldA) [Mass fraction]99 %Shakila Gaxiola MD Work Phone: [phone] [address]07-28-2025 08:32-0400 Systolic blood wkxusign560 mm[Hg]Shakila Gaxiola MD Work Phone: [facility]06-04-2025 09:53-0400 Body mass index (BMI) [Ratio]39.56 kg/p8EszoybvfGwendolyn Almazan NP Work Phone: [facility] CenterMpnnugltcv42-34-9158 09:53-0400Body snocby05.7 kg Gwendolyn Almazan NP Work Phone: [phone] CenterEalmqwvewu25-92-9559 09:53-0400Diastolic blood hynhwfpy27 mm[Hg]Gwendolyn Almazan BILLING MACHINE OPERATOR Work Phone: [facility] CenterBmzfexfthz31-54-1607 09:53-0400Heart rate95 /min Gwendolyn Almazan BILLING MACHINE OPERATOR Work Phone: [phone] CenterWjcdvsbqxm21-55-3073 09:53-1799WtM3% (BldA) [Mass fraction]95 %Gwendolyn Almazan NP Work Phone: [phone] CenterFnqxmkkdms58-41-3164 09:53-0400Systolic blood ndtpcxex904 mm[Hg]Gwendolyn Almazan BILLING MACHINE OPERATOR Work Phone: [facility] CenterToovoigdda95-02-0898 11:23-0400Diastolic blood anwixcux39 mm[Hg]Ellen Roberts BILLING MACHINE OPERATOR Work Phone: [facility] CenterPfcxvpyhlk98-28-0100 11:23-0400Heart rate76 /min Ellen Roberts BILLING MACHINE OPERATOR Work Phone: [facility] CenterPlifteghxp00-74-7322 11:23-0400Systolic blood mm[Hg]Ellen Roberts BILLING MACHINE OPERATOR Work Phone: [facility] CenterDfcvmvkdci02-19-6019 09:41-0400Body uhofbd980.02 cmC[facility] Clinic Foundation03-24-2025 09:41-0400Body mass index (BMI) [Ratio]38.9 kg/x1GcydlbmadCleveland Clinic Foundation03-24-2025 09:41-0400Body krnhhu33.6 kgCleveland Clinic Foundation03-24-2025 09:41-0400Diastolic blood apbukeaq79 mm[Hg][facility]03-24-2025 09:41-0400 Heart rate65 /[facility]03-24-2025 09:41-0400 Respiratory rate18 /[facility]03-24-2025 09:41-0400 SaO2% (BldA) [Mass fraction]99 %[facility]03-24-2025 09:41-0400Systolic blood qaotrpau035 mm[Hg][facility] 09-25-2024 10:07-0500Body .02 cmC[facility] 09-25-2024 10:07-0500Body mass index (BMI) [Ratio]39.1 kg/h4IlokjwiwzCleveland Clinic Foundation01-27-2025 10:07-0500Body .24 kgC[facility] Clinic Foundation01-27-2025 10:07-0500Diastolic blood yjadlbvw63 mm[Hg][facility]01-27-2025 10:07-0500Heart rate72 /[facility]01-27-2025 10:07-0500Respiratory rate18 [facility]01-27-2025 10:07-9178KvH5% (BldA) [Mass fraction]98 %[facility]01-27-2025 10:07-0500Systolic blood kuspptyz644 mm[Hg] [facility]11-25-2024 09:35-0500Body tjwuhc120.8 cmShakila Gaxiola MD Work Phone: [facility] CenterNsgkxxtiym36-66-0604 09:35-0500Body mass index (BMI) [Ratio]40.32 kg/m2Shakila Gaxiola MD Work Phone: [facility] CenterIcmqyncifb60-79-6655 09:35-0500Body zuroeo202.61 kgShakila Gaxiola MD Work Phone: [facility] CenterDojjiacsol81-49-2120 09:35-0500Diastolic blood mm[Hg]Shakila Gaxiola MD Work Phone: [facility] CenterJrbsppdbbl47-73-9243 09:35-0500Heart rate84 /min Shakila Gaxiola MD Work Phone: [facility] CenterDcfvyalqrk63-98-6880 09:35-0500Systolic blood iohfrnlh676 mm[Hg]Shakila Gaxiola MD Work Phone: [facility] CenterOavykuyuey98-20-8504 10:21-0500Body mass index (BMI) [Ratio]38.88 kg/m2Kate SPARKS Work Phone: [facility] CenterYmozgosppl92-82-3535 10:21-0500Body gokmxd594.15 kgKate SPARKS Work Phone: [place] [address]Ogajuaxhey53-09-0455 10:21-0500Diastolic blood kyhxywfb38 mm[Hg]Kate SPARKS Work Phone: [place] [address]Ojirnuctas36-81-3497 10:21-0500Systolic blood lhtfltki767 mm[Hg]Kate SPARKS Work Phone: [facility] CenterTaugmflnfx74-55-3076 10:10-0500Body ytnegw457.02 cmC[facility] Clinic Foundation11-04-2024 10:10-0500Body mass index (BMI) [Ratio]40 kg/p8CzryqbzunCleveland Clinic Foundation11-04-2024 10:10-0500Body weight 102.56 kgCleveland Clinic Foundation11-04-2024 10:10-0500Diastolic blood chsxodxk19 mm[Hg][facility]11-04-2024 10:10-0500Heart rate78 /[facility]11-04-2024 10:10-0500Respiratory rate18 /[facility]11-04-2024 10:10-7188UuF7% (BldA) [Mass fraction]98 %[facility]11-04-2024 10:10-0500 Systolic blood ksidrmnx153 mm[Hg][facility]09-16-2024 10:03-0400Body ybjxfz982.02 cmCleveland Clinic Foundation09-16-2024 10:03-0400Body mass index (BMI) [Ratio]40.4 kg/z1RtwzznnpvCleveland Clinic Foundation09-16-2024 10:03-0400Body .67 kgC[facility] 05-15-2024 10:03-0400Diastolic blood msirrgvu64 mm[Hg][facility]09-16-2024 10:03-0400Heart rate88 /minC[facility] Clinic Foundation 05-15-2024 10:03-0400Respiratory rate18 /[facility] 05-15-2024 10:03-8979DvC9% (BldA) [Mass fraction]100 %[facility]09-16-2024 10:03-0400Systolic blood hxytkise695 mm[Hg][facility]07-22-2024 08:25-0400Body cafznr770.02 cmC[facility] Clinic Foundation07-22-2024 08:25-0400Body mass index (BMI) [Ratio]41.6 kg/m2 [facility]07-22-2024 08:25-0400Body .67 kg [facility]07-22-2024 08:25-0400Diastolic blood duqndjto04 mm[Hg][facility]07-22-2024 08:25-0400Heart rate74 /min [facility]07-22-2024 08:25-0400Respiratory rate16 /min [facility]07-22-2024 08:25-2144AoG4% (BldA) [Mass fraction]100 %[facility]07-22-2024 08:25-0400Systolic blood mvrolwnc127 mm[Hg][facility]06-03-2024 08:14-0400 Body pivjxc876.02 cmC[facility] Clinic Foundation06-03-2024 08:14-0400Body mass index (BMI) [Ratio]44.1 kg/s0PifcqgdpjCleveland Clinic Foundation06-03-2024 08:14-0400Body uxxlin545.94 kgCleveland Clinic Foundation06-03-2024 08:14-0400Diastolic blood kinhzbvy06 mm[Hg][facility] 01-31-2024 08:14-0400Heart rate77 /[facility] 01-31-2024 08:14-0400Respiratory rate16 /[facility] 01-31-2024 08:2086UvA0% (BldA) [Mass fraction]98 %[facility]06-03-2024 08:Systolic blood ecgyfnrw530 mm[Hg][facility] Encounters Encounter DateEncounter TypeCare ProviderFacilityStart: 04-25-2025 End: 15-09-5066Rjjilo outpatient visit 25 minutesJr. Gianna Higginbotham DO Work Phone: [facility] Arsenio OrthopaedicsComment on above:Right wrist pain (Primary Dx); Ganglion cyst of dorsum of right wristStart: 04-25-2025 End: 12-75-9582rnbgxoohcqFR., GIANNA Monique AvailableStart: 04-25-2025 End: 37-14-1901Zipfsy flowsheetJr. Gianna Higginbotham DO Work Phone: [facility] OrthopaedicsStart: 04-25-2025 End: 34-45-9663Qhgzaw flowsheetJr. Gianna Higginbotham DO Work Phone: [facility]opaedicsStart: 03-28-2025 End: 20-32-5376Hxfmoa flowsElizabeth SPARKS Work Phone: [facility]icsStart: 03-28-2025 End: 90-92-0856Wynkni flowsElizabeth SPARKS Work Phone: [facility]edicsStart: 03-28-2025 End: 44-69-5853Rvywpy outpatient visit 25 minutesLawrence SPARKS Work Phone: [facility] OrthopaedicsComment on above:Right wrist pain (Primary Dx); Left wrist painStart: 03-28-2025 End: 58-23-7964qhiyccblrmRVAEJUE J MEYERNot AvailableStart: 03-26-2025 End: 31-37-8596lbgsvnpevjMosnSanjuanita Gaxiola MD Work Phone: [facility] Work Phone: Start: 03-26-2025 End: 88-16-2576Glvnqyn encounter Jalyn Salas MD-[facility] Work Phone: Start: 02-14-2025 End: 21-01-3606Vlhqqr flowsElizabeth SPARKS Work Phone: [facility]OPAEDICSStart: 02-14-2025 End: 26-60-4395Xnfkir flowsElizabeth SPARKS Work Phone: [facility]OPAEDICSStart: 02-14-2025 End: 62-13-4938Ucxian outpatient visit 25 minutesMaisaiah SPARKS Work Phone: [facility] FB ORTHOPAEDICSComment on above:Acute hip pain, left (Primary Dx)Start: 02-14-2025 End: 63-27-4497jtsycpcbrqUAHOOEZ J MEYERNot AvailableStart: 01-31-2025 End: 93-34-0135Hcsjhh flowsGrey Almazan NP Work Phone: [facility] FNR FMStart: 01-31-2025 End: 19-17-5369Gpfepd Tami Almazan NP Work Phone: NO[facility] FNR FMStart: 01-31-2025 End: 75-45-2569Msgkgb outpatient visit 25 minutesSasteve Almazan NP Work Phone: [facility]oms FNR FMComment on above:Left hip pain (Primary Dx); Back pain, unspecified back location, unspecified back pain laterality, unspecified chronicity; Pain of left heelStart: 01-31-2025 End: 29-68-3196cgjhpccbqoULSKIKKZ J HOFFMANNot AvailableStart: 12-27-2024 End: 66-52-2659Ioqsto flowsElizabeth SPARKS Work Phone: [facility] ORTHOPAEDICSStart: 12-27-2024 End: 21-58-3224Hrfsrw flowsElizabeth SPARKS Work Phone: [facility] ORTHOPAEDICSStart: 12-27-2024 End: 46-72-8125Fftblh outpatient new 45 minutesMaisaiah SPARKS Work Phone: [facility] FB ORTHOPAEDICSComment on above:Acute pain of right shoulder (Primary Dx); Impingement of right shoulder; Calcific tendinitis of right shoulderStart: 12-27-2024 End: 89-25-4385bzeahkooblCSBYGFB J MEYERNot AvailableStart: 12-22-2024 End: 28-45-8303Ahruul outpatient visit 25 minutesEllen Roberts NP Work Phone: [facility] FNR FMComment on above:Right shoulder pain, unspecified chronicity (Primary Dx); Essential hypertension (CMS/HCC); Gastroesophageal reflux disease, unspecified whether esophagitis presentStart: 12-22-2024 End: 69-46-3360krltxmmxlfZKWEAVOQT A GABELNot AvailableStart: 12-22-2024 End: 73-58-5971Mlpgveaut department patient Danelle JIMENEZSelect Medical Specialty Hospital [facility] Northtart: 11-20-2024 End: 97-37-4598ybkxsjlqsaYgyxzdqyoWestern Reserve Hospital Work Phone: Start: 11-20-2024 End: 03-96-8242Kpulfye encounter procedureCarepartners Rehabilitation Hospital Physician [facility] Work Phone: Start: 09-25-2024 End: 68-77-9773uthygvpaknXbcxainwxWestern Reserve Hospital Work Phone: Start: 09-25-2024 End: 33-19-4770Fpvufza encounter procedureCarepartners Rehabilitation Hospital Physician [facility] Work Phone: Start: 08-28-2024 End: 49-91-9834Unmwtsvpg Result EncounterGeneric External Data ProviderNOMS External Department UnsolicitedStart: 08-28-2024 End: 39-01-2129Amtddvnkc Result EncounterGeneric External Data ProviderNOMS External Department UnsolicitedStart: 08-28-2024 End: 65-43-0169RoquwdGpejAriella Gaxiola MD Work Phone: [facility] FNR FMComment on above:Essential hypertension (CMS/HCC)Start: 08-14-2024 End: 67-44-2814Fddulr flowsSangita SPARKS Work Phone: [facility] BCP OBStart: 08-14-2024 End: 68-86-9252Myypda flowsheetKate Prieto PA Work Phone: NOOZ BCP OBStart: 08-14-2024 End: 74-20-6139vyduxnmgozDLX Rahul AvailableStart: 08-14-2024 End: 37-25-9219Ykhxqx digital e/m svc est pt <7 d 5-10 minutesAmy Sarahy SPARKS Work Phone: NO[facility] BCP OBComment on above:Well woman exam with routine gynecological exam (Primary Dx)Start: 08-14-2024 End: 52-74-6088Mezuubl encounter procedureKate SPARKS Work Phone: [facility] Work Phone: Start: 08-02-2024 End: 97-62-6320GcsvzzLqofAriella Gaxiola MD Work Phone: [facility] FNR FMComment on above:Hypothyroidism, unspecified type (CMS/HCC)Start: 07-24-2024 End: 28-47-4169Dclvqn Erinn Gaxiola MD Work Phone: NOGS FNR FMStart: 07-24-2024 End: 51-38-0673Wisknx Erinn Gaxiola MD Work Phone: [facility] FNR FMStart: 07-24-2024 End: 28-86-6720Qizmmwf encounter Ravi Gaxiola MD Work Phone: noms HealthcareStart: 07-24-2024 End: 84-77-3795Khgammlr preventive med est patient 40-64yrsMjay Gaxiola MD Work Phone: [facility] FNR FMComment on above:Well adult exam (Primary Dx); Essential hypertension (CMS/HCC); [...] status migrainosus, not intractable, unspecified migraine type (CMS/HCC)Start: 07-24-2024 End: 29-21-4409nthangywmhPOIW B WONDERLYNot AvailableStart: 07-17-2024 End: 86-79-7792Rzsxwv Mayi SPARKS Work Phone: [facility] OBStart: 07-17-2024 End: 80-37-8667Lsabvt Mayi SPARKS Work Phone: [facility] OBStart: 07-17-2024 End: 12-43-6432Lldxnrcsv Result EncounterGeneric External Data ProviderNOMS External Department UnsolicitedStart: 07-17-2024 End: 93-85-5917Rcacnsj encounter Ke SPARKS Work Phone: noms HealthcareStart: 07-17-2024 End: 29-64-1977Mobpzmao preventive med est patient 40-64yrsAmy Sarahy SPARKS Work Phone: [facility] OBComment on above:Itching (Primary Dx); Well woman exam with routine gynecological exam; Breast cancer screening by mammogramStart: 07-17-2024 End: 29-56-0129pealzprqflEEO RAMEYNot AvailableStart: 42-56-3361Qea-patient / Non-visitFireland Physician [facility] Work Phone: Start: 07-03-2024 End: 89-45-2899Giwyjwa encounter procedureCarepartners Rehabilitation Hospital Physician [facility] Work Phone: Start: 05-15-2024 End: 18-60-7651afygnwbqyoCjhkaotgrWestern Reserve Hospital Work Phone: Start: 05-15-2024 End: 78-30-1936Qhjyrxd encounter procedureCarepartners Rehabilitation Hospital Physician [facility] Work Phone: Start: 03-20-2024 End: 89-24-3565inamgzeehnCmzftjcjuWestern Reserve Hospital Work Phone: Start: 03-20-2024 End: 43-14-1437Cehztdo encounter procedureCarepartners [facility] Physician [facility] Work Phone: Start: 02-22-2024 End: 42-46-2687emwxnicowsYaqxaisjgWestern Reserve Hospital Work Phone: Start: 02-22-2024 End: 96-08-2034Vecaaru encounter procedureCarepartners Rehabilitation Hospital Physician [facility] Work Phone: Start: 01-31-2024 End: 94-87-1761bzzvuzvwftFksscsbzmWestern Reserve Hospital Work Phone: Start: 01-31-2024 End: 78-16-6337Xnwsnje encounter procedureCarepartners [facility] Physician [facility] Work Phone: Start: 28-32-7385Grn-patient / Non-visitCarepartners Rehabilitation Hospital Physician [facility] Work Phone: Start: 08-09-2023 End: 33-48-0488Kfqcastkj Result EncounterGeneric External Data ProviderNOMS External Department UnsolicitedStart: 08-09-2023 End: 61-62-3235Fkblbwwah Result EncounterGeneric External Data ProviderNOMS External Department UnsolicitedStart: 08-03-2022 End: 82-97-3255tjbybgoenmLN JERMAIN FAZIOFacility:H1 Procedures DateProcedureProcedure DetailPerforming ClinicianStart: 03-28-2025 End: 88-32-9096Ectku wrist 2 viewsMaisaiah SPARKS Work Phone: Start: 39-82-0613Bfwjy dip stick/tablet rgnt non-auto w/o micrscpSamantha Jong Almazan BILLING MACHINE OPERATOR Work Phone: Start: 26-50-9344Xstwddtlsdguks aspir&/inj major jt/bursa w/o usMatthew Jong Lozano PA Work Phone: Start: 62-64-0316LD TOMOSYNTHESIS SCREENING BIGeneric External Data ProviderStart: 59-73-0246ArkobgznzlvSjcurqruv Gabel BILLING MACHINE OPERATOR Work Phone: Start: 21-77-6950FIZ,APTIMA HPV,AGE GDLNKate SPARKS Work Phone: Start: 76-87-2885Injlfjauvyk observation [Identifier] in Cervix by Cyto stainShakila Gaxiola MD Work Phone: Start: 31-38-1421HE TOMOSYNTHESIS SCREENING BIGeneric External Data ProviderStart: 18-12-6761BotfizmkqpuTqz Ramey PA Work Phone: Start: 45-13-7118Jmacbngnxtq observation [Identifier] in Cervix by Cyto stainKate SPARKS Work Phone: Start: 19-41-5168Yjwl cerv/vag auto thin layer prep mnl screenKate SPARKS Work Phone: Start: 03-11-1210KzntlkgcesgGdf Ramey PA Work Phone: Plan of Treatment DateCare ActivityDetailAuthorStart: 85-78-2343Hjiulbihv for malignant neoplasm of cervixNOMS HealthcareStart: 41-62-9958Ymcebblgr for malignant neoplasm of cervixPap SmearNOMS HealthcareStart: 79-36-1401Sdzdeiaoh for malignant neoplasm of colonNOMS HealthcareStart: 73-85-1856Clgsjjntf for malignant neoplasm of breastMammogramNOMS HealthcareStart: 07-30-2025 End: 91-19-8967Bbcsjqg encounter procedureNOMS BCP OBStart: 58-00-3981Xztxmcvbw vaccinationInfluenza Vaccine (Season Ended)[facility] HealthcareStart: 04-25-2025 End: 92-24-0617Dxxzjbj encounter otziqkjle77/27/2025 2:30 PM EDT Office Visit [facility] [address] [place], [id number] Jr. Gianna Higginbotham, DO [address] [facility] [address] [place] [address] [facility] Comment on above:ArrivedStart: 03-28-2025 End: 89-90-5835Urzrxka encounter procedureNOMS FB ORTHOPAEDICSComment on above: Acute hip pain, left (Primary Dx)Start: 02-14-2025 End: 79-93-6078Pyqvbpp encounter procedureNOMS FB ORTHOPAEDICSComment on above: Acute hip pain, left (Primary Dx)Start: 01-31-2025 End: 89-96-5775XCPNZVPXWB, COMPLETE W/REFLEX TO CULTUREURINALYSIS, COMPLETE W/REFLEX TO CULTURE Lab Routine Left hip pain Back pain, unspecified back locat ion, unspecified back pain laterality, unspecified chronicity Expected: 01/31/2025 (Approximate), Expires: 01/31/2026[facility] Work Phone: Comment on above:Expected: 01/31/2025 (Approximate), Expires: 01/31/2026Start: 01-31-2025 End: 34-72-3879Hzencre encounter wmbbporzq66/04/2025 10:00 AM EDT Office Visit [facility] [address] [place] [address] Gwendolyn Almazan NP [address] [place] [address] [facility] FMComment on above:ArrivedStart: 12-27-2024 End: 59-45-0249Pjhfgfx encounter procedureNOMS FB ORTHOPAEDICSComment on above: Acute pain of right shoulder (Primary Dx)Start: 28-94-1214Mocjqzrvk vaccination Influenza Vaccine (#1)[facility] HealthcareComment on above:Postponed from 04/30/2024 (Patient Refused)Start: 08-14-2024 End: 33-32-3017Dlmwyhq encounter pmbzetznv88/16/2024 9:50 AM EST Office Visit [facility] [address] [place] [address] Kate Prieto PA [address] [place] [address] [facility] OBStart: 00-70-8890Vgsnewcew for malignant neoplasm of breastMammogramRIVERTON HOSPITAL HealthcareStart: 07-24-2024 End: 41-57-7822Pbsajkx encounter procedureNOMS FNR FMComment on above:Well adult exam (Primary Dx); Essential hypertension (CMS/HCC); Fatty liver; Gastroesophageal reflux disease, unspecified whether esophagitis present; Irritable bowel syndrome with both constipation and diarrhea; DDD (degenerative disc disease), cervical; Fibromyalgia; Hypothyroidism, unspecified type (CMS/HCC); Impaired fasting glucose; PCOS (polycystic ovarian syndrome); Vitamin D deficiency; Hypomagnesemia; Migraine without aura and without status migrainosus, not intractable (CMS/HCC); Pure hypertriglyceridemia (CMS/HCC)Start: 07-17-2024 End: 62-31-8432LL Breast - bilateral ScreeningBilateral screening mammogram Imaging Routine Breast cancer screening by mammogram Expected: 07/17/2024 (Approximate), Expires: 09/16/2025[facility] Work Phone: comment on above:Expected: 07/17/2024 (Approximate), Expires: 09/16/2025Start: 48-88-2011Gpkisydbr vaccinationInfluenza Vaccine (#1) [facility] HealthcareStart: 00-45-2237Gynzmbufi for malignant neoplasm of colonNOID HealthcareTHIN PREP TIS PAP AND HR HPV DNATHIN PREP TIS PAP AND HR HPV DNA Pathology and Cytology Routine Well woman exam with routine gynecological exam Ordered: 07/17/2024[facility] HealthcareComment on above:Ordered: 07/17/2024 Immunizations Immunization DateImmunizationNotesCare DbpyehxhCrbblndn41-56-0431kzwouwtyl, injectable, quadrivalent, preservative freeKate SPARKS Work Phone: [facility] CenterVlhajzeiux50-16-4623pcjmqiipi virus vaccine, unspecified formulationAmy Sarahy PA Work Phone: [facility] CenterBiuvzrifdl53-82-9325yejjzpcvp, injectable, quadrivalent, preservative freeAmy Sarahy PA Work Phone: [facility] CenterIavgjupeba56-09-7267rojsoqqjm, injectable, quadrivalent, preservative freeAmy Martin PA Work Phone: [phone]-[facility] CenterHxlivleqww60-23-7870ichqvsifh, injectable, quadrivalent, preservative freeAmy Sarahy PA Work Phone: [facility] CenterEohvyqwhth15-38-7050qjmcxoqxg, injectable, quadrivalent, preservative freeAmy Sarahy PA Work Phone: [phone] [place], [place] [address]Xuwksdpzco69-82-6871cbpalfy toxoid, reduced diphtheria toxoid, and acellular pertussis vaccine, adsorbedAmy Sarahy PA Work Phone: [phone] [place] [address] Payers DatePayer CategoryPayerPolicy [id number] Health InsuranceMEDICAL MUTUAL [id number] .[id number] .[id number] .[id number] 2.16.840.1.743271.3.57[id number] 2.16.840.1.100700.3.57[id number] 2.16.840.1.453071.3.57[id number] 2..840.1.652679.3.57[id number] 2..840.1.448930.3.57[id number] 2..840.1.669990.3.57[id number] 2..840.1.491413.3.57[id number] 2..840.1.188130.3.57[id number] 2..840.1.503682.3.57[id number] 2..840.1.806565.3.57[id number] 2.840.1.370673.3.57[id number] [id number] Social History DateTypeDetailFacilityStart: 01-31-2024 End: 55-27-1847Juolhws smoking status NHISNever smoked tobacco (finding) [facility] 07-[facility]-1858Mix Assigned At BirthFeParkwood Hospitaltart: 02-14-2023 End: 75-36-5574Bbvelih use and exposureSmokeless tobacco non-userNOMS Healthcare Start: 06-28-2023 End: 41-41-8451Tabzaledg beverage intakeCurrent drinker of alcohol (finding)[facility] HealthcareStart: 06-28-2023 End: 87-08-7416Wvmcvkm of Social functionNOID HealthcareStart: 06-28-2023 End: 07-38-0408Fmwyfjr Use Disorder Identification Test - Consumption [AUDIT-C] [facility] HealthcareHow often to you have a drink containing alcohol?Monthly or less [facility] HealthcareHow many standard drinks containing alcohol do you have on a typical day?1 or 2N[facility]S HealthcareHow often do you have 6 or more drinks on 1 occasion?NeverNOMS HealthcareStart: 38-26-9653Yefuitv CommentAlcohol: 1-2 drinks/monthly or lessNOID HealthcareStart: 98-45-4967Vji assigned at birthNot on fileNOID HealthcareStart: 99-49-9641Ottjkh identityIdentifies as female gender (finding)[facility] HealthcareHistory of tobacco usePassive smokerRIVERTON HOSPITAL HealthcareStart: 07-24-2024 End: 63-52-7868Qutzsgmpn beverage intakeEx-drinker (finding)[facility] Healthcare Start: 09-25-2024 End: 45-93-2655VwcFpdrxd (finding)[facility]art: 40-07-7147Dgyaneb CommentCaffine: 1-2 cups dailyNOID HealthcareStart: 11-11-2022 [facility]FeM[facility] Functional Status DwjeKcmkinqnjaWeycxuVysfvmkj88-07-6495Ulxmion Health Questionnaire 2 item (PHQ- 2) [Reported][facility] Clinical Notes 09-25-2023 to 04-25-2025 Note Date & OdzbNlvcCwfcksze46-68-3687 History of Present illness Narrative* Jr. Gianna Higginbotham, DO - 04/25/2025 2:30 PM EDT Images from the original note were not included. Falling offHISTORY OF PRESENT ILLNESS: EST PT Chanda Steve is an 49 y.o. @ female. (EST PT) (LAST APPT W/ FITO) - RECHECK B/L WRIST DISCOMFORT / ANTERIOR MASSES (R>L) - HERE TO DISCUSS (R) WRIST OPTIONS XRAY B/L WRISTS 03/28/25 IN EPIC NOTES ANTERIOR MASS TO RADIAL ASPECT (R) WRIST. ADMITS DISCOMFORT - RADIATION TO WRIST DIFFUSELY. STATES SHE HAS HAD MASSES TO WRIST FOREVER. DENIES N/T. SOME STIFFNESS. DENIES WAKING HS. GOOD ROM - CAN BE LIMITED WITH FLARE UP OF PAIN. DENIES BRACING RECENTLY. NO PAIN MEDS. ICED DURING FLARE UP. DENIES TOPICALS. PT ON SEMAGLUTIDE INJ RT HANDED. ALLERGIES: Allergies Allergen Reactions Avelox [Moxifloxacin] GI intolerance Heart racing Bactrim [Sulfamethoxazole-Trimethoprim] Other Joint pain, lips tingle, eyes itch Biaxin [Clarithromycin] Diarrhea jittery Hydrocodone-Acetaminophen Unknown and Itching Macrobid [Nitrofurantoin] Dizziness Oxycodone Unknown Sulfa Antibiotics Zofran [Ondansetron] Headache Iodinated Contrast Media Rash and Unknown Iodine Rash HOME MEDICATIONS: Current Outpatient Medications Medication Instructions citalopram [...] 2 MG/DOSE, SC Inject under the skin PHYSICAL EXAM: Hand/Wrist Musculoskeletal Exam Inspection Right Right hand/wrist inspection is normal. Erythema: none Ecchymosis: none Edema: none Deformity: mild Deformity comment: swelling, firm soft tissue mass to radial volar wrist, approx 1 cm in diameter, elevated and dome shaped consistent with gangliong cyst. tender to palpation Wrist - prior incision: carpal tunnel Incision: well-healed Left Left hand/wrist inspection is normal. Erythema: none Ecchymosis: none Edema: none Deformity: mild Deformity comment: radial volar surface with small palpable mass concerning fo ganlion cyst. minimaelevation to skin but palpable less than 0.5cm non tender Wrist - prior incision: carpal tunnel Incision: well-healed Palpation Right Right wrist palpation is normal. Wrist tenderness to palpation: flexor carpi radialis Wrist tenderness to palpation comment: 1 cm diameter ganglion cyst noted the volar radial aspect Left Left wrist palpation is normal. Wrist tenderness to palpation comment: DENIES PAIN TO SNUFF BOX OR SCAPHO-LUNATE. Range of Motion Right Wrist Right wrist range of motion is normal. Active Extension: 80 Passive Extension: 80 Active Flexion: 80 Passive Flexion: 80 Active Pronation: 90 Passive Pronation: 90 Active Supination: 90 Passive Supination: 90 Left Wrist Left wrist range of motion is normal. Active Extension: 80 Passive Extension: 80 Active Flexion: 80 Passive Flexion: 80 Active Pronation: 90 Passive Pronation: 90 Active Supination: 90 Passive Supination: 90 Strength Right Hand Right hand strength is normal. Left Hand Left hand strength is normal. Right Wrist Right wrist strength is normal. Extension: 5/5. Flexion: 5/5. Radial deviation: 5/5. Ulnar deviation: 5/5. Pronation: 5/5. Supination: 5/5. Left Wrist Left wrist strength is normal. Extension: 5/5. Flexion: 5/5. Radial deviation: 5/5. Ulnar deviation: 5/5. Pronation: 5/5. Supination: 5/5. Neurovascular Right Right neurovascular exam is normal. Radial pulse: normal and 2+ Capillary refill: <3 sec and brisk Ulnar nerve sensory distribution: normal Median nerve sensory distribution: normal Superficial radial nerve sensory distribution: normal Left Left neurovascular exam is normal. Radial pulse: normal and 2+ Capillary refill: brisk and <3 sec Ulnar nerve sensory distribution: normal Median nerve sensory distribution: normal Superficial radial nerve sensory distribution: normal Special Tests Right DRUJ instability: negative TFCC load test: negative Left DRUJ instability: negative TFCC load test: negative General Constitutional: appears stated age Labored breathing: no Neurological: alert and oriented x3 Skin: intact Lymphadenopathy: none Vitals: There is no height or weight on file to calculate BMI. Tobacco Use: Low Risk (04/25/2025) Patient History Smoking Tobacco Use: Never Smokeless Tobacco Use: Never Passive Exposure: Past Alcohol Use: Not At Risk (06/28/2023) AUDIT-C Frequency of Alcohol Consumption: Monthly or less Average Number of Drinks: 1 or 2 Frequency of Binge Drinking: Never IMAGING: Procedures No orders of the defined types were placed in this encounter. ASSESSMENT: ICD-10-CM 1. Right wrist pain M25.531 2. Ganglion cyst of dorsum of right wrist M67.431 PLAN: We have discussed her symptoms physical exam and x-ray today at length. We have recommended an excision of ganglion cyst palmar radial aspect that is 1 cm in diameter. We have discussed the complications risks and benefits and the recurrence rate with ganglion cyst. We will see her back on the day of surgery for excision of ganglion cyst palmar radial aspect right wrist We have discussed both surgical and nonsurgical treatment options with the patient and the risks and benefits associated with both. The patient is requesting surgical intervention because the patient's symptoms were affecting the patient's activities of daily living and ability to sleep. The patient's symptoms were unresponsive to outpatient treatment options. After lengthy discussions involving but not limited to both surgical and nonsurgical treatment options the patient has requested surgical intervention and we will see them back on the day of surgery. The patient understands the risks ofsaid treatment. Questions answered in laymen terms at the bedside. The diagnosis, home exercise plan and any ongoing restrictions/ recommendations reviewed. If unable to be reached in office, I recommend evaluation at nearest Emergency Room if any symptoms worsened or new symptoms develop for requiring urgent evaluation. documented in this encounterUniversity Health Lakewood Medical [id number] History of Present illness Narrative* BRIDGER Oleary - 03/28/2025 8:00 AM EDT Images from the original note were not included. Orthopedic Office note: NAME: Chanda Steve : 1975 EST PT RECHECK LT HIP PAIN - S/P HEP/RESTRICTIONS/NSAID'S XRAY LT HIP 01/31/25 EPIC PREDNISONE 01/31/25 FLEXERIL NOTES IMPROVEMENT. DENIES PAIN IN HIP. STATES IT HAS RESOLVED. NEW C/O B/L WRIST CYSTS. STATES SHE HAS HAD THEM FOREVER. HAS STARTED CAUSING PAIN. CYSTS ON ANTERIOR WRISTS. RT>LT. PT ON SEMAGLUTIDE INJ Hand/Wrist Musculoskeletal Exam Inspection Right Right hand/wrist inspection is normal. Erythema: none Ecchymosis: none Edema: none Deformity: mild Deformity comment: swelling, firm soft tissue mass to radial volar wrist, approx 1 cm in diameter, elevated and dome shaped consistent with gangliong cyst. tender to palpation Wrist - prior incision: carpal tunnel Incision: well-healed Left Left hand/wrist inspection is normal. Erythema: none Ecchymosis: none Edema: none Deformity: mild Deformity comment: radial volar surface with small palpable mass concerning fo ganlion cyst. minimaelevation to skin but palpable less than 0.5cm non tender Wrist - prior incision: carpal tunnel Incision: well-healed Palpation Right Right wrist palpation is normal. Wrist tenderness to palpation comment: DENIES PAIN TO SNUFF BOX OR SCAPHO-LUNATE. Left Left wrist palpation is normal. Wrist tenderness to palpation comment: DENIES PAIN TO SNUFF BOX OR SCAPHO-LUNATE. Range of Motion Right Wrist Right wrist range of motion is normal. Active Extension: 80 Passive Extension: 80 Active Flexion: 80 Passive Flexion: 80 Active Pronation: 90 Passive Pronation: 90 Active Supination: 90 Passive Supination: 90 Left Wrist Left wrist range of motion is normal. Active Extension: 80 Passive Extension: 80 Active Flexion: 80 Passive Flexion: 80 Active Pronation: 90 Passive Pronation: 90 Active Supination: 90 Passive Supination: 90 Strength Right Hand Right hand strength is normal. Left Hand Left hand strength is normal. Right Wrist Right wrist strength is normal. Extension: 5/5. Flexion: 5/5. Radial deviation: 5/5. Ulnar deviation: 5/5. Pronation: 5/5. Supination: 5/5. Left Wrist Left wrist strength is normal. Extension: 5/5. Flexion: 5/5. Radial deviation: 5/5. Ulnar deviation: 5/5. Pronation: 5/5. Supination: 5/5. Neurovascular Right Right neurovascular exam is normal. Radial pulse: normal and 2+ Capillary refill: <3 sec and brisk Ulnar nerve sensory distribution: normal Median nerve sensory distribution: normal Superficial radial nerve sensory distribution: normal Left Left neurovascular exam is normal. Radial pulse: normal and 2+ Capillary refill: brisk and <3 sec Ulnar nerve sensory distribution: normal Median nerve sensory distribution: normal Superficial radial nerve sensory distribution: normal Special Tests Right DRUJ instability: negative TFCC load test: negative Left DRUJ instability: negative TFCC load test: negative General Constitutional: appears stated age Labored breathing: no Neurological: alert and oriented x3 Skin: intact Lymphadenopathy: none Orders Placed This Encounter Procedures XR wrist 1 or 2 views right Is the patient ?: No Reason for exam:: pain XR wrist 1 or 2 views left Is the patient ?: No Reason for exam:: pain Procedures Results - Imaging: - X-rays of the wrists show no acute bony process - 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 Right wrist pain M25.531 XR wrist 1 or 2 views right 2. Left wrist pain M25.532 XR wrist 1 or 2 views left Assessment & Plan Bilateral wrist pain, right greater than left The clinical examination suggests a ganglion cyst due to its location, size, and the duration of symptoms. The left wrist has palpable, nontender bumps. The right wrist, recently injured at work, hasexperienced a flare-up of pain. X-rays reveal no acute bony abnormalities but indicate degenerativechanges at the CMC joint of the thumb. She is informed about both surgical and nonsurgical treatment options. Surgical excision was proposed with the understanding that the cyst may recur due to its location and etiology. However, she declined surgery at this time, noting a recent decrease in the cyst's size and opting to use a brace at night to manage inflammation. She also declined additional st eroids, having recently completed a course for her hip condition, which she reports is currently stable. Diagnostic plan: X-rays reveal no acute bony abnormalities but indicate degenerative changes at theCMC joint of the thumb. Treatment plan: She is informed about both surgical and nonsurgical treatment options. She declinedsurgery at this time, noting a recent decrease in the cyst's size and opting to use a brace at night to manage inflammation. She also declined additional steroids, having recently completed a course for her hip condition. Clinical decision making: Surgical excision was proposed with the understanding that the cyst may recur due to its location and etiology. Follow-up: as needed Questions answered in laymen terms at the bedside. The diagnosis, home exercise plan and any ongoing restrictions/ recommendations reviewed. If unable to be reached in office, I recommend evaluation at nearest Emergency Room if any symptoms worsened or new symptoms develop for requiring urgent evaluation. Visit was preformed using [employer]-commercial pilot speech recognition. documented in this encounterUniversity Health Lakewood Medical [id number] History of Present illness Narrative* BRIDGER Oleary - 02/14/2025 8:30 AM EDT Images from the original note were not included. Orthopedic Office note: NAME: Chanda Steve : 1975 EST PT WITH NEW C/O LT HIP PAIN ~3WKS- NO KNOWN INJURY - GWENDOLYN ALMAZAN [place]; XRAY/PREDNISONE/UA/FLEXERIL XRAY LT HIP 01/31/25 EPIC PREDNISONE 01/31/25 FLEXERIL PAIN LATERAL HIP- SOME RADIATING PAIN DOWN LEG-DENIES N/T- PT STATES PREDNISONE HELPED A LOT; SHE IS JUST HAVING HER NORMAL PAIN- PT STATES SHE DID HAVE LIMITED ROM; HAS RESOLVED- NO PAIN MEDS PT ON SEMAGLUTIDE INJ Hip Musculoskeletal Exam Gait Gait is normal. Inspection Leg length disparity: no discrepancy Left Erythema: none Ecchymosis: none Edema: none Deformity: none Palpation Left Left hip palpation is normal. Increased warmth: none Tenderness: present Lower lumbar region pain: mild Lower lumbar region pain comment: SI joint. + pain with piriformis stretching Range of Motion Left Left hip range of motion is within functional limits. Active ROM: normal. Passive ROM: normal. Active extension: 40. Passive extension: 40. Active flexion: 120. Passive flexion: 120. Active internal rotation: 45. Passive internal rotation: 45. Active external rotation: 35. Passive external rotation: 35. Active adduction: 30. Passive adduction: 30. Active abduction: 35. Passive abduction: 35. Strength Left Left hip strength is normal. Extension: 5/5. Flexion: 5/5. Internal rotation: 5/5. External rotation: 5/5. Adduction: 5/5. Abduction: 5/5. Neurovascular Left Left hip neurovascular exam is normal. Pulses - PT: normal Posterior tibial: 2+ General Constitutional: appears stated age Labored breathing: no Psychiatric: normal mood and affect Neurological: alert and oriented x3 Skin: intact Lymphadenopathy: none No orders of the defined types were placed in this encounter. Procedures Results Xray (L) Hip 1. No acute bony abnormalities radiographically. 2. Arthritic spurring versus pincer anatomy of the acetabular roofs bilaterally. 3. Lumbar spondylosis. Osteoarthritic pattern of the sacroiliac joints. No diagnosis found. Assessment & Plan Left lateral hip pain Symptoms are possibly related to the IT band or piriformis syndrome. She notes that symptoms improved after taking oral steroids from her PCP. X-rays have been reviewed. Her activities leading up to the onset of symptoms, which involved hip abduction exercises at a local gym, were discussed. Treatment plan: She has been advised to modify her activities and provided with home exercises for stretching. A daily anti-inflammatory medication has been recommended. Clinical decision making: If symptoms persist or worsen, formal therapy or a referral for an SI joint injection for pain management will be considered. Plantar fasciitis She reports mild plantar fasciitis symptoms in her left leg and heel. Treatment plan: Home exercises, including calf stretching, have been provided to address this issue. Follow-up: The patient will follow up in 6 weeks. Questions answered in laymen terms at the bedside. The diagnosis, home exercise plan and any ongoing restrictions/ recommendations reviewed. If unable to be reached in office, I recommend evaluation at nearest Emergency Room if any symptoms worsened or new symptoms develop for requiring urgent evaluation. Visit was preformed using [employer]commercial pilot speech recognition. documented in this encounterUniversity Health Lakewood Medical [id number] History of Present illness Narrative* Gwendolyn Almazan NP - 01/31/2025 10:00 AM EDT Images from the original note were not included. Chanda Steve is a 49 y.o. female presents with chief complaint of Flank Pain (Left side pain started Wednesday. Has been taking ibuprofen and cyclobenzaprine. ) HPI: Flank Pain Pertinent negatives include no abdominal pain, chest pain or dysuria. History of Present Illness The patient is a 49-year-old female who presents to the office for acute concerns. She began experiencing left-sided back pain, localized more towards her hip, on Wednesday. The pain radiates down her leg, reminiscent of her previous kidney stone episodes. However, she has not had akidney stone in several years since starting antihypertensive medication with hydrochlorothiazide prescribed by Dr. Gaxiola. The pain is constant but can be alleviated by certain positions, leading her to believe it may not be related to a kidney stone. She reports no urinary symptoms or hematuria. She experiences occasional nausea, which was also present during her previous kidney stone episodes. She reports no lower back pain, numbness, tingling, or weakness in her legs. She has an upcoming a ppointment with orthopedics on 02/12/2025. She has been managing the pain with ibuprofen and Flexeril, which have provided some relief and improved her sleep quality. She has a history of kidney stones. She also reports heel discomfort, which she attributes to an altered gait due to her hip pain. Initially, the pain would disrupt her sleep, but this is no longer the case, suggesting an overall improvement. She was previously diagnosed with shoulder bursitis approximately a month ago, which necessitated an emergency room visit due to severe pain. She was prescribed steroids and received an injection from orthopedics. SUBJECTIVE: MEDICATIONS: Current Outpatient Medications Medication Instructions citalopram (CELEXA) 20 mg, Oral, Daily cyclobenzaprine (FLEXERIL) 10 mg, Oral, 3 times daily famotidine (PEPCID) 20 mg, Oral, Daily hyoscyamine (ANASPAZ,LEVSIN) 0.125 mg, Every 4 hours PRN levothyroxine (Synthroid, Levoxyl) 125 MCG tablet TAKE 1 TABLET DAILY ON AN EMPTY STOMACH lisinopril-hydroCHLOROthiazide 20-25 MG tablet 1 tablet, Oral, Daily predniSONE (Deltasone) 10 MG tablet Take 4 tablets (40 mg) by mouth Daily for 3 days, THEN 3 tablets (30 mg) Daily for 3 days, THEN 2 tablets (20 mg) Daily for 3 days, THEN 1 tablet (10 mg) Daily for3 days. promethazine (PHENERGAN) 25 mg, Oral, Every 6 hours PRN rizatriptan (MAXALT) 10 mg, Oral, As needed SEMAGLUTIDE, 2 MG/DOSE, SC Inject under the skin ALLERGIES: Allergies Allergen Reactions Avelox [Moxifloxacin] GI [...] Renal calculi Thyroid disease (CMS/HCC) Tonsillitis 1983 Past Surgical History: Procedure Laterality Date CARPAL TUNNEL RELEASE Right 06/27/2015 DR HIGGINBOTHAM CARPAL TUNNEL RELEASE Left 08/01/2015 DR HIGGINBOTHAM CHOLECYSTECTOMY 2005 COLONOSCOPY 03/28/2009 CYSTOSCOPY 09/24/2011 Dr. Nelson CYSTOSCOPY 03/17/2017 ureteroscope stone extraction - Dr. Nelson DILATION AND CURETTAGE 2013 ENDOMETRIAL BIOPSY 05/2019 EXTRACORPOREAL SHOCK WAVE LITHOTRIPSY 12/10/2014 Dr. Breezy Nelson/V2contact LITHOTRIPSY 2008 X2 RI TONSILLECTOMY & ADENOIDECTOMY <AGE 11 1984 SINUS [...] Caffine: 1-2 cups daily Drug use: Never Sexual activity: Yes control/protection: None Other Topics Concern Not on file Social History Narrative Not on file Social Drivers of Health Financial Resource Strain: Not on file Food Insecurity: No Food Insecurity (12/22/2024) Received from [facility] Hunger Screening Within the past 12 months we worried whether our food would run out before we got money to buy more.: Never True Within the past 12 months the food we bought just didn't last and we didn't have money to get more.: Never True Transportation Needs: Not on file Physical Activity: Not on file Stress: Not on file Social Connections: Not on file Intimate Partner Violence: Not on file Housing Stability: Not on file I have reviewed and reconciled the history and medication list with the patient today. REVIEW OF SYMPTOMS: Review of Systems Constitutional: Negative for activity change, appetite change and fatigue. HENT: Negative. Respiratory: Negative for cough, shortness of breath and wheezing. Cardiovascular: Negative for chest pain and palpitations. Gastrointestinal: Negative for abdominal pain, diarrhea and nausea. Genitourinary: Positive for flank pain. Negative for difficulty urinating, dysuria, frequency and hematuria. Musculoskeletal: Negative for back pain. Pain to left hip Skin: Negative for color change, rash and wound. Psychiatric/Behavioral: Negative. OBJECTIVE: Results 06/28/2023 9:01 AM 11/08/2023 1:31 PM 02/09/2024 2:09 PM 07/17/2024 10:21 AM 07/24/2024 9:35 AM 12/22/2024 11:23 AM 01/31/2025 9:53 AM Vitals BMI 42.58 kg/m2 38.88 kg/m2 40.32 kg/m2 39.56 kg/m2 BSA (m2) 2.23 m2 2.13 m2 2.12 m2 2.1 m2 Systolic 134 122 142 122 130 130 130 Diastolic 84 76 88 72 84 86 84 Heart Rate 68 86 76 84 76 95 SpO2 99 % 95 % Temp 98.1 F 98.2 F Height (in) 5' 3.5 5' 2.5 Weight (lb) 244.2 223 224 219.8 Visit Report Report Report Report Report Report Report Report Physical Exam Vitals reviewed. Constitutional: General: She is not in acute distress. Appearance: Normal appearance. She is obese. She is not ill-appearing. Cardiovascular: Rate and Rhythm: Normal rate and regular rhythm. Heart sounds: No murmur heard. Pulmonary: Effort: Pulmonary effort is normal. No respiratory distress. Breath sounds: Normal breath sounds. No wheezing or rhonchi. Abdominal: General: Bowel sounds are normal. There is no distension. Palpations: Abdomen is soft. Tenderness: There is no abdominal tenderness. There is no right CVA tenderness or left CVA tenderness. Musculoskeletal: General: Tenderness (to left hip) present. Left hip: Tenderness present. Right lower leg: No edema. Left lower leg: No edema. Skin: General: Skin is warm and dry. Findings: No rash. Neurological: Mental Status: She is alert. Mental status is at baseline. Psychiatric: Mood and Affect: Mood normal. Behavior: Behavior normal. Thought Content: Thought content normal. Judgment: Judgment normal. Physical Exam ASSESSMENT AND PLAN: Assessment/Plan Diagnoses and all orders for this visit: Left hip pain - XR hip left 2 or 3 views; Future - URINALYSIS, COMPLETE W/REFLEX TO CULTURE; Future - predniSONE (Deltasone) 10 MG tablet; Take 4 tablets (40 mg) by mouth Daily for 3 days, THEN 3 tablets (30 mg) Daily for 3 days, THEN 2 tablets (20 mg) Daily for 3 days, THEN 1 tablet (10 mg) Daily for 3 days. Back pain, unspecified back location, unspecified back pain laterality, unspecified chronicity - POCT Urinalysis dipstick - URINALYSIS, COMPLETE W/REFLEX TO CULTURE; Future Pain of left heel Assessment & Plan 1. Left hip pain. - The etiology of the pain is uncertain, but it is unlikely to be a kidney stone given the absence of urinary symptoms and the nature of the pain. - Physical examination revealed tenderness in the hip area, with pain radiating down the left leg. No CVA tenderness was noted. - An x-ray of the left hip will be ordered to further investigate the cause of the pain. A urinalysis with reflex to culture will also be conducted to rule out any urinary abnormalities. - A prescription for prednisone 10 mg tablets has been provided, with instructions to take 40 mg (4tablets) for the first 3 days, then taper down by 1 tablet every 3 days until completing a total of10 days. She is advised to take the medication in the morning with food to minimize gastrointestinal upset. If the pain intensifies, a CT scan may be considered. No NSAIDS. Discussed SE to medicationand when to report to the ER. 2. Heel pain. - The heel pain may be related to altered gait due to hip pain. - No specific findings were noted on physical examination regarding the heel pain. - The relationship between the heel pain and altered gait was discussed. - Prednisone may also help with heel pain. 30 minutes spent reviewing chart, assessing patient and documenting. Follow up if symptoms worsen or fail to improve, for Next scheduled follow-up. documented in this encounterUniversity Health Lakewood Medical [id number] History of Present illness Narrative* BRIDGER Oleary - 12/27/2024 8:00 AM EDTAssociated Order(s): L Inj/Asp: R subacromial bursa Post-Procedure Diagnose(s): Calcific tendinitis of right shoulder; Impingement of right shoulder Images from the original note were not included. Orthopedic Office note: NAME: Chanda Steve : 1975 NEW PT WITH RT SHOULDER - WOKE UP WITH PAIN 12/18/24- WENT TO [facility] TX; 12/21/24; XRAY/ TORADOL. PCP TX WITH [facility] 12/22. HX PREVIOUS TX PER [facility] 2017; CORTISONE INJ XRAY RT SHOULDER 12/22/24 @ [facility] 12/22/24 HX CORTISONE INJ 2018 PER [facility] TOOK LAST [facility] TODAY, NOTES IMPROVEMENT. PAIN IS RANDOM. PAIN ANTERIOR SHOULDER, WHEN IT WAS BAD IT WOULD RADIATE DOWN HER ARM. +TYL PRN. DID HAVE LIMITED ROM, ROM HAS IMPROVED. +ICE AND BIOFREEZE. WHEN HER PAIN WAS BAD, FELT NUMBNESS IN HAND- THIS HAS RESOLVED. +POPPING, GRINDING. RT HANDED. Physical Exam Shoulder Musculoskeletal Exam Inspection Right Right shoulder inspection is normal. Ecchymosis: none Peripheral edema: none Atrophy: none Masses: none Palpation Right Crepitus: no crepitus Increased warmth: none Tenderness: present Anterior shoulder: mild AC joint: mild Lateral arm: mild Range of Motion Right Right shoulder range of motion is normal. Active ROM: normal and pain. Passive ROM: normal and pain. Right shoulder active abduction: + pain passing 90 degrees. Strength Right External rotation: 5/5. Internal rotation: 5/5. Abduction: 5/5. Abduction is affected by pain. Biceps: 5/5. Triceps: 5/5. Neurovascular Right Radial pulse: normal and 2+ Capillary refill: <3 sec Axillary nerve sensory distribution: normal Scapula Right Right shoulder scapula is normal. Position: normal Winging: none Special Tests Right Rotator Cuff Signs Tipton test: positive Painful arc test: positive Biceps/kerry Signs Speed's test: negative General Constitutional: appears stated age Neurological: alert and oriented x3 Orders Placed This Encounter Procedures L Inj/Asp This order was created via procedure documentation L Inj/Asp: R subacromial bursa on 12/27/2024 8:16 AM Indications: pain Details: 21 G needle, posterior approach Medications: 40 mg methylPREDNISolone acetate 40 MG/ML Outcome: tolerated well, no immediate complications Utilizing aseptic technique with universal precautions . Pt given injection Right Shoulder SA space (Code 08996 RT) Procedure, treatment alternatives, risks and benefits explained, specific risks discussed. Consent was given by the patient. Results Xray right shoulder 12/22/24 No acute fracture or dislocation. Degenerative changes including joint space narrowing at the right AC joint. Tiny calcific deposit adjacent to the greater tubercle of the humerus. IMPRESSION: * No acute osseous abnormality. * Degenerative findings suggestive of early calcific tendinitis of the supraspinatus tendon ICD-10-CM 1. Acute pain of right shoulder M25.511 2. Impingement of right shoulder M25.811 3. Calcific tendinitis of right shoulder M75.31 Assessment & Plan Right shoulder impingement The pathology of right shoulder impingement was discussed at length. She notes relief from oral Medrol Dosepak; however, symptoms are still present. Home exercises have been recommended. Activity modifications with her workouts at the gym were discussed, and she was thankful. She has pain with stressing her rotator cuff, especially the supraspinatus, but no significant weakness. Treatment plan: A subacromial injection was administered today. Calcific tendinitis The pathology of calcific tendinitis was discussed at length. Home exercises have been recommended.Activity modifications with her workouts at the gym were discussed, and she was thankful. She has pain with stressing her rotator cuff, especially the supraspinatus, but no significant weakness. Treatment plan: A subacromial injection was administered today. Follow-up: She will follow up on a p.r.n. basis if symptoms do not continue to improve. PROCEDURE Procedure Performed Subacromial injection Questions answered in laymen terms at the bedside. The diagnosis, home exercise plan and any ongoing restrictions/ recommendations reviewed. If unable to be reached in office, I recommend evaluation at nearest Emergency Room if any symptoms worsened or new symptoms develop for requiring urgent evaluation. Visit was preformed using [employer]-commercial pilot speech recognition. documented in this encounterUniversity Health Lakewood Medical [id number] History of Present illness Narrative* Ellen Roberts, BILLING MACHINE OPERATOR - 12/22/2024 11:30 AM EDT Images from the original note were not included. Subjective Patient ID: Chanda Steve is a 49 y.o. female who presents for Shoulder Pain (Rt shoulder pain since Wednesday. Pain worse. Went to ER early this morning. Has appt with Dr. Higginbotham next Wed.). Shoulder Pain Pertinent negatives include no fever. HPI: As above. Went to ER this AM r/t pain was 8/10 bad . Pain flared last night. Now constant, before that had been dull on and off 5/10 with occ sharp pain. Has had shoulder issues since her late 20s had steroid shot in arm years ago at [facility]. Recently flaring this week. No fall, no injury. 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 X-ray in ER showed a lot of calcification. They gave her a Toradal shot and applied a Lidocaine Patch. Pt got minimal relief form that. No N/T. Pain is at anterior and lateral shoudler an goes down arm . Limited movements. Took 3 Ibuprofen 10:30 Am today and took edge off also used biofreeze to shoulder. No Tylenol yet r/t usually hasn't helped in past. Sleep interupted by pain. Worked this week, but didn't goto work today. Pt states oral steroid helped in the past Review of Systems Constitutional: Positive for fatigue. Negative for appetite change, chills and fever. Always tired, fatigue is worse with not sleeping r/t pain. HENT: Negative for congestion and sore throat. Respiratory: Negative for cough and shortness of breath. Cardiovascular: Negative for chest pain, palpitations and leg swelling. Gastrointestinal: Negative for abdominal pain, constipation, diarrhea, nausea (with increased pain)and vomiting. Bowels moving well, No GERD with taking Pepcid daily Genitourinary: Negative for difficulty urinating and dysuria. Irregular periods. Musculoskeletal: Right shoulder pain, see HPI Skin: Negative for rash. Neurological: Negative for dizziness, light-headedness and headaches. Psychiatric/Behavioral: Negative for dysphoric mood. Sleep interupted by pain 06/10/2023 4:03 PM 06/28/2023 9:01 AM 11/08/2023 1:31 PM 02/09/2024 2:09 PM 07/17/2024 10:21 AM 07/24/2024 9:35 AM 12/22/2024 11:23 AM Vitals BMI 43.08 kg/m2 42.58 kg/m2 38.88 kg/m2 40.32 kg/m2 BSA (m2) 2.21 m2 2.23 m2 2.13 m2 2.12 m2 Systolic 140 134 122 142 122 130 130 Diastolic 90 84 76 88 72 84 86 Heart Rate 76 68 86 76 84 76 SpO2 99 % Temp 98.1 F 98.2 F Height (in) 5' 3.5 5' 2.5 Weight (lb) 243.2 244.2 223 224 Visit Report Report Report Report Report Report Report Report Objective Physical Exam Vitals and nursing note reviewed. Constitutional: General: She is not in acute distress. Appearance: Normal appearance. She is obese. She is not diaphoretic. HENT: Head: Normocephalic and atraumatic. Eyes: Extraocular Movements: Extraocular movements intact. Conjunctiva/sclera: Conjunctivae normal. Cardiovascular: Rate and Rhythm: Normal rate and regular rhythm. Heart sounds: No murmur heard. Pulmonary: Effort: Pulmonary effort is normal. No respiratory distress. Breath sounds: Normal breath sounds. No wheezing or rhonchi. Comments: No cough Abdominal: General: Bowel sounds are normal. There is no distension. Palpations: Abdomen is soft. Tenderness: There is no abdominal tenderness. Musculoskeletal: Right lower leg: No edema. Left lower leg: No edema. Comments: Pt has pain at anterior and lateral right shoulder area. Area with sl edema, not red or hot. Pt has difficulty lifting arm past shoulder height, she has pain with trying to move arm across body, outward and behind body. Radial pulse is strong, pt can feel y tough, No numbness or tingling Skin: General: Skin is warm and dry. Coloration: Skin is not pale. Findings: No rash. Neurological: Mental Status: She is alert and oriented to person, place, and time. Mental status is at baseline. Psychiatric: Comments: Calm and cooperative, pleasant, well groomed. is present I have reviewed and reconciled the history and medication list with the patient today. Assessment/Plan Diagnoses and all orders for this visit: Right shoulder pain, unspecified chronicity: Rx for Medrol dose liliam given. Discussed Se's of Prednisone: Take with food r/t can bother stomach, can make more hungry, hyper, can elevate sugar. Do not take with Motrin, Aleeve, Advil. Tylenol is ok to take. Hold Motrin for now since will be taking Steroid. When finished with steroid Can take Motrin (Ibuprofen) 4-200mg ie 800mg up to 3 times a day. It can bother stomach, so take with food, long tem use can affect kidneys. Tylenol 500mg or 650mg 1-2tabs three times a day. Max is to 3000mg of Tylenol per 24 hours. Can alternate, heat or ice patches, rubs ie Ryan Herbert, [place], Biofreeze, [place] patches. Pt has appt with Ortho-keep appt. Rx for muscle relaxant sent - methylPREDNISolone (Medrol Dospak) 4 MG tablets; Follow schedule on package instructions - cyclobenzaprine (Flexeril) 10 MG tablet; Take 1 tablet (10 mg) by mouth in the morning and 1 tablet (10 mg) in the evening and 1 tablet (10 mg) before bedtime. Do all this for 7 days. Essential hypertension (CMS/HCC): Controlled Gastroesophageal reflux disease, unspecified whether esophagitis present: Pt declined GERD at this time with taking Pepcid. Pt declined Rx for Nausea, she has med at home F/U PRN if symptoms worsen of fail to improve. PVU documented in this encounterUniversity Health Lakewood Medical [id number] Evaluation note* Author Ingrid Jagdishjurgen [facility] FoundationAuthoredJuly 2024 8:47amStart Weight/Highest 249 lbs. she is down 27.7 lbs. today with a weight of 221.3 lbs. she is up 1.5 lbs since last visit 11/20/2024. Starting Date: 01/31/24 Semaglutide start date 01/31/2024. Semaglutide/ Buderer start weight 249 pounds. She is down 27.7lbs. 1. Abnormal weight gain 2. Obesity-significant improvement on 0.6 mg of compounded semaglutide with a greater than 10% weight loss with now getting full much quicker and having better food control. She is is agreeable to increase to the 1.2 mg dose if no side effects or problems. Heartburn is been a previous issue but now doing better. She will continue to follow an antireflux diet. She craves white bread and Twinkies. She is doing [...] is on 500 mg metformin from her [employer], which also helps with her chronic constipation. I continue to recommend continuing GLP-1 agonist if affordable. She needs close long-term follow-up this condition to prevent diabetes. 4. Azkmytmmwzgk-nblx-iexieqkvmo. She will continue treat with a low-salt [...] with GLP-1. Follow up with me in 6-8 weeks. New labs needed: Up-to-date. She needs yearly follow-up blood work follow-up her prediabetes and hypertriglyceridemia including fasting CMP, cholesterol profile and A1c again 06/2025. [facility] Work Phone: [phone]) 836-766412-16-2024 History of Present illness Narrative* BRIDGER Hernandez - 08/14/2024 9:50 AM EST 5Reason for Appointment: Patient ID: Chanda Steve is a 48 y.o. female who presents for No chief complaint on file. Patient presents today via telephone call for a telehealth appointment. Patients Phone #: [phone] (mobile) Current Medications: has a current medication list which includes the following prescription(s): citalopram, famotidine,levothyroxine, lisinopril-hydrochlorothiazide, metformin, promethazine, rizatriptan, and semaglutide. Medical History: Active Ambulatory Problems Diagnosis Date Noted Anxiety disorder 06/24/2023 OCD (obsessive compulsive disorder) ([facility]) 06/24/2023 Migraine without status migrainosus, not intractable ([facility]) 11/02/2022 Body mass index (BMI) of 40.1 to 44.9 in adult ([facility]) 06/24/2023 DDD (degenerative disc disease), cervical 06/24/2023 DDD (degenerative disc disease), lumbar 06/24/2023 Depressive disorder ([facility]/HCC) 06/24/2023 Endometriosis 06/24/2023 Essential hypertension ([facility]/HCC) 06/24/2023 Fatty liver 06/24/2023 Fibromyalgia 06/24/2023 GERD (gastroesophageal reflux disease) 06/24/2023 Hypomagnesemia 11/02/2022 Hypothyroidism, unspecified ([facility]) 06/24/2023 IBS (irritable bowel syndrome) 06/24/2023 Impaired fasting glucose 06/24/2023 Metabolic syndrome 06/24/2023 Non-allergic rhinitis 06/24/2023 PCOS (polycystic ovarian syndrome) 06/24/2023 PMS (premenstrual syndrome) 06/24/2023 Pure hypertriglyceridemia ([facility]) 06/24/2023 Vitamin D deficiency 06/24/2023 Well adult exam 07/24/2024 Resolved Ambulatory Problems Diagnosis Date Noted Chest pain 06/16/2021 Hypokalemia 11/05/2022 Past Medical History: Diagnosis Date Anxiety BMI 39.0-39.9,adult BPPV (benign paroxysmal positional vertigo) Carpal tunnel syndrome Depression ([facility]) History of screening mammography 08/03/2022 HTN (hypertension) ([facility]) Hypertriglyceridemia ([facility]) Hypothyroidism ([facility]) Maxillary sinusitis, unspecified chronicity Meniere's disease Menorrhagia with irregular cycle Migraines ([facility]) Mood changes Morbid obesity with BMI of 40.0-44.9, adult ([facility]) Nasal polyp Nonsmoker Obesity (BMI 30-39.9) Pelvic pain in female Recurrent sinus infections Renal calculi Thyroid disease (CMS/[facility]) Tonsillitis 1985 Family History Problem Relation Name [...] Date CARPAL TUNNEL RELEASE Right 06/27/2015 DR HIGGINBOTHAM CARPAL TUNNEL RELEASE Left 08/01/2015 DR HIGGINBOTHAM CHOLECYSTECTOMY 2005 COLONOSCOPY 03/28/2009 CYSTOSCOPY 09/24/2011 Dr. Nelson CYSTOSCOPY 03/17/2017 ureteroscope stone extraction - Dr. Nelson DILATION AND CURETTAGE 2012 ENDOMETRIAL BIOPSY 05/2019 EXTRACORPOREAL SHOCK WAVE LITHOTRIPSY 12/10/2014 Dr. Breezy Nelson/[facility] LITHOTRIPSY 2008 X2 RI TONSILLECTOMY & ADENOIDECTOMY <AGE 11 1985 SINUS [...] behalf of: BRIDGER Hernandez documented in this encounterUniversity Health Lakewood Medical [id number] History of Present illness Narrative* Shakila Gaxiola MD - 07/24/2024 9:30 AM EST Images from the original note were not included. Chanda Steve is a 48 y.o. female presents with chief complaint of Annual Exam HPI: HPI Pt is here for her wellness exam. Pt is having some menopausal symptoms and is seeing LEASE BROKER. Pt is having irregular menses. Nausea and headache with menses. Pt is getting itching of her nipples. Is nowon a steroid cream. Pt is having some [...] obesity with BMI of 40.0-44.9, adult ([facility]) Nasal polyp Nonsmoker Obesity (BMI 30-39.9) PCOS (polycystic ovarian syndrome) Pelvic pain in female Recurrent sinus infections Renal calculi Thyroid disease ([facility]) Tonsillitis 1985 Past Surgical History: Procedure Laterality Date CARPAL TUNNEL RELEASE Right 06/27/2015 DR HIGGINBOTHAM CARPAL TUNNEL RELEASE Left 08/01/2015 DR HIGGINBOTHAM CHOLECYSTECTOMY 2005 COLONOSCOPY 03/28/2009 CYSTOSCOPY 09/24/2011 Dr. Nelson CYSTOSCOPY 03/17/2017 ureteroscope stone extraction - Dr. Nelson DILATION AND CURETTAGE 2012 ENDOMETRIAL BIOPSY 05/2019 EXTRACORPOREAL SHOCK WAVE LITHOTRIPSY 12/10/2014 Dr. Breezy Nelson/[facility] LITHOTRIPSY 2008 X2 RI TONSILLECTOMY & ADENOIDECTOMY <AGE 11 1985 SINUS [...] She is obese. She is not ill-appearing, toxic- appearing or diaphoretic. HENT: Head: Normocephalic and atraumatic. [...] Diagnosis Plan 1. Well adult exam sees LEASE BROKER - pap 07/23 done mammogram scheduled Had [...] [facility] 10. PCOS (polycystic ovarian syndrome) seeing LEASE BROKER 11. Vitamin D deficiency on supplement controlled 12. Hypomagnesemia labs reviewed. now corrected 13. Pure hypertriglyceridemia (CMS/HCC) Pt will discuss with the fluid pump operator. 14. Body mass index (BMI) of 40.1 [...] [facility] office. She will talk to the fluid pump operator about her increased triglycerides . I pt is to follow up with nurse obgyn for menopausal symptoms documented in this encounterUniversity Health Lakewood Medical [id number] History of Present illness Narrative* BRIDGER Hernandez - 07/17/2024 10:00 AM EST Reason for Appointment: Patient [...] Anxiety disorder 06/24/2023 OCD (obsessive compulsive disorder) [place] 06/24/2023 Migraine without status migrainosus, not intractable ([facility]) 11/02/2022 Body mass index (BMI) of 40.1 to 44.9 in adult ([facility]) 06/24/2023 DDD (degenerative disc disease), cervical 06/24/2023 DDD (degenerative disc disease), lumbar 06/24/2023 Depressive disorder ([facility]) 06/24/2023 Endometriosis 06/24/2023 Essential hypertension ([facility]) 06/24/2023 Fatty liver 06/24/2023 Fibromyalgia 06/24/2023 GERD (gastroesophageal reflux disease) 06/24/2023 Hypokalemia 11/05/2022 Hypomagnesemia 11/02/2022 Hypothyroidism, unspecified ([facility]) 06/24/2023 IBS (irritable bowel syndrome) 06/24/2023 Impaired [...] Date CARPAL TUNNEL RELEASE Right 06/27/2015 DR HIGGINBOTHAM CARPAL TUNNEL RELEASE Left 08/01/2015 DR HIGGINBOTHAM CHOLECYSTECTOMY 2005 COLONOSCOPY 03/28/2009 CYSTOSCOPY 09/24/2011 Dr. Nelson CYSTOSCOPY 03/17/2017 ureteroscope stone extraction - Dr. Nelson DILATION AND CURETTAGE 2012 ENDOMETRIAL BIOPSY 05/2019 EXTRACORPOREAL SHOCK WAVE LITHOTRIPSY 12/10/2014 Dr. Breezy Nelson/[facility] LITHOTRIPSY 2008 X2 RI TONSILLECTOMY & ADENOIDECTOMY <AGE 11 1985 SINUS [...] nursing note reviewed. Exam conducted with a securities adviser present. Vitals: Estimated body mass index is [...] prescription for desonide topical PRN [facility] reevaluate with telehealth visit in 1 months time. Documented by BRIDGER Hernandez on behalf of: BRIDGER Hernandez documented in this encounterUniversity Health Lakewood Medical [id number] Evaluation note* Author Breezy Salas [facility] FoundationAutlicking memorial hospitalNovholy cross hospital 2023 11:36amHighest weight 249 lbs. down 22.8 lbs. Start weight: 249 lbs. she is down 22.8 lbs. Today's weight 226.2 lbs she is down 2.7 lbs since last visit 05/15/2024.. Starting Date: 01/31/24 Semaglutide start date 01/31/2024. Semaglutide start weight 249 pounds. She is down 22.8.lbs. 1. Abnormal weight gain 2. Obesity-significant improvement on 0.6 mg of compounded semaglutide with not getting full much quicker. She is happy at this dose at this point. She had tried many times on her [...] A1c of 5.9 before starting the program/gestational dkxxrfgo-qxscg-ifau treatment with lifestyle change, decrease simple sweets and starches, increased exercise and weight loss. With starting the program she did restart 1000 mg metformin which also helps with her chronic constipation. Recommend continuing GLP-1 agonist. She needs close long-term follow-up this condition to prevent diabetes. 4. Ayrskviikguq-egzn-yzwrwluvtf. She will continue treat with a low-salt diet, decreased processed and restaurant foods, healthy lifestyle changes and achieve long-term weight loss. Monitor outside the office. Controlled on lisinopril-HCTZ. 5. Hypertriglyceridemia-should be improving. She will continue treat with decreasing the [...] with GLP-1. Follow up with me in 6-8 weeks. New labs needed: Up-to-date. She will need yearly follow-up blood work follow-up her prediabetes and hypertriglyceridemia. I am going to order a CMP, cholesterol profile and A1c prior to her next visit. She has not yet had her blood work done. Author Ingrid Lam [facility] FoundationAuthoredJanuary 2024 10:27am Start Weight/Highest 249 lbs. she is down 28.0 lbs. today with a weight of 221.0 lbs. she is down 5.2 lbs since last visit 07/03/2024.. Starting Date: 01/31/24 Semaglutide start date 01/31/2024. Semaglutide start weight 249 pounds. She is down 28.0.lbs. 1. Abnormal weight gain 2. Obesity-significant improvement on 0.6 mg of compounded semaglutide with not getting full much quicker. She is happy at this dose at this point. She had tried many times on her [...] A1c of 5.9 before starting the program/gestational qgnsttkk-tcdrp-abxj treatment with lifestyle change, decrease simple sweets and starches, increased exercise and weight loss. With starting the program she did restart 1000 mg metformin which also helps with her chronic constipation. Recommend continuing GLP-1 agonist. She needs close long-term follow-up this condition to prevent diabetes. 4. Nnzjkdefugfs-tzqi-rpgcgbsqhh. She will continue treat with a low-salt diet, decreased processed and restaurant foods, healthy lifestyle changes and achieve long-term weight loss. Monitor outside the office. Controlled on lisinopril-HCTZ. 5. Hypertriglyceridemia-should be improving. She will continue treat with decreasing the [...] with GLP-1. Follow up with me in 6-8 weeks. New labs needed: Up-to-date. She will need yearly follow-up blood work follow-up her prediabetes and hypertriglyceridemia. I am going to order a CMP, cholesterol profile and A1c prior to her next visit. She has not yet had her blood work done. [facility] Work Phone: 1(533) 621-747907-22-2024 Evaluation note* Author Mary Ellen Nina [facility] FoundationAuthoredSeptember 2023 10:18amHighest weight/starting weight: 249 lbs Start weight: 249 lbs. she [...] of kidney stones. 3. Impaired fasting glucose/prediabetes/gestational inlcedcj-sexrb-bjua treatment with lifestyle change, decrease simple sweets [...] her prediabetes and hypertriglyceridemia Author Breezy Salas [facility] FoundationCooper 2023 9:06amHighest weight/starting weight: 249 lbs Start weight: 249 lbs. she [...] of kidney stones. 3. Impaired fasting glucose/prediabetes/gestational mqmpilyu-ktwua-icyf treatment with lifestyle change, decrease simple sweets [...] May to follow-up her prediabetes and hypertriglyceridemia. [facility] Work Phone: 1(700) 898-218506-03-2024 Evaluation note* Author Breezy Salas [facility] FoundationAuthoredJune 2023 9:24amAssessment: Highest weight/starting weight: 249 lbs Start weight: [...] other side effects. 3. Impaired fasting glucose/prediabetes/gestational uimmnhvh-hguln-tkxe treatment with lifestyle change, decrease simple sweets [...] Our exercise program was recommended with our financial systems analyst/obesity exercise group. Handout given. Our free weekly [...] and benefits of prescribed meds discussed. Initial swes-ws-ypbs interview/evaluation. The patient was counseled in detail on the options for weight loss in an individual setting. 56 minutes was spent caring for the patient, counseling/educating patient on the options for the treatment of obesity and related healthcare issues. The program's treatment goals were reviewed with the patient. Each aspect of the program was discussed with the patient. [facility] Work Phone: 1(437) 637-538306-03-2024 Evaluation note* Author Breezy Salas [facility] FoundationAuthoredJunoctavia 2023 9:24amAssessment: Highest weight/starting weight: 249 lbs Start weight: [...] other side effects. 3. Impaired fasting glucose/prediabetes/gestational rrfuxnqx-aayxo-lcqk treatment with lifestyle change, decrease simple sweets [...] Our exercise program was recommended with our financial systems analyst/obesity exercise group. Handout given. Our free weekly [...] and benefits of prescribed meds discussed. Initial hkjl-yz-qdbo interview/evaluation. The patient was counseled in detail on the options for weight loss in an individual setting. 56 minutes was spent caring for the patient, counseling/educating patient on the options for the treatment of obesity and related healthcare issues. The program's treatment goals were reviewed with the patient. Each aspect of the program was discussed with the patient. Author Mary Ellen Nina [facility] FoundationAuthoredJuly 2023 8:41amHighest weight/starting weight: 249 lbs Start weight: 249 lbs. she [...] other side effects. 3. Impaired fasting glucose/prediabetes/gestational xaqwpsxt-uzkin-bbpa treatment with lifestyle change, decrease simple sweets [...] May to follow-up her prediabetes and hypertriglyceridemia. [facility] Work Phone: 1(855) 601-325001-27-2024 Evaluation note* Author Ingrid Lam [facility] FoundationAuthoredMar 2024 10:03amStart Weight/Highest 249 lbs. she is down 29.5 lbs. today with a weight of 219.5 lbs. she is down 1.5 lbs since last visit 09/25/2023.. Starting Date: 01/31/24 Semaglutide start date 01/31/2024. Semaglutide/ Buderer start weight 249 pounds. She is down 29.5lbs. 1. Abnormal weight gain 2. Obesity-significant improvement on 0.6 mg of compounded semaglutide with a greater than 10% weight loss with not getting full much quicker. She is happy at this dose at this point. She still craves white bread. She has increased her exercise and added circuit training. [...] weight loss. With starting the program she did restart 1000 mg metformin which also helps with her chronic constipation. Recommend continuing GLP-1 agonist. She needs close long-term follow-up this condition to prevent diabetes. 4. Spszxxzxnqpe-xzzr-dkdwigfoeh. She will continue treat with a low-salt diet, decreased processed and restaurant foods, healthy lifestyle changes and achieve long-term weight loss. Monitor outside the office. Controlled on lisinopril-HCTZ. 5. Hypertriglyceridemia/mixed hyperlipidemia-not yet improving. She denies alcohol use. She will continue [...] with GLP-1. Follow up with me in 6-8 weeks. New labs needed: Up-to-date. She needs yearly follow-up blood work follow-up her prediabetes and hypertriglyceridemia including fasting CMP, cholesterol profile and A1c again 06/2025. Author Breezy Salas [facility] FoundationAuthoNelauary 2024 11:46am Start Weight/Highest 249 lbs. she is down 28.0 lbs. today with a weight of 221.0 lbs. she is down 5.2 lbs since last visit 07/03/2024.. Starting Date: 01/31/24 Semaglutide start date 01/31/2024. Semaglutide start weight 249 pounds. She is down 28.0.lbs. 1. Abnormal weight gain 2. Obesity-significant improvement on 0.6 mg of compounded semaglutide with a greater than 10% weight loss with not getting full much quicker. She is happy at this dose at this point. She still craves white bread. She has increased her exercise and added circuit training. [...] weight loss. With starting the program she did restart 1000 mg metformin which also helps with her chronic constipation. Recommend continuing GLP-1 agonist. She needs close long-term follow-up this condition to prevent diabetes. 4. Qustskecbmom-latc-vlmljrevqz. She will continue treat with a low-salt diet, decreased processed and restaurant foods, healthy lifestyle changes and achieve long-term weight loss. Monitor outside the office. Controlled on lisinopril-HCTZ. 5. Hypertriglyceridemia/mixed hyperlipidemia-not yet improving. She denies alcohol use. She will continue [...] with GLP-1. Follow up with me in 6-8 weeks. New labs needed: Up-to-date. She needs yearly follow-up blood work follow-up her prediabetes and hypertriglyceridemia including fasting CMP, cholesterol profile and A1c again 06/2025. [facility] Work Phone: Chief complaint+Reason for visit Narrative* Chief Complaint [facility]-Referral Hayley Pump [facility] Work Phone: Chief complaint+Reason for visit Narrative* Chief Complaint [facility]-Referral Hayley Pump Initial WMN groupReason for VisitAbnormal weight gain Depression Essential hypertension Lani's disease Heart burn Hypertriglyceridemia Loud snoring Polycystic ovarian syndrome Prediabetes [facility] Work Phone: Evaluation note* Author Breezy Salas [facility] FoundationAuthoredJunoctavia 2023 9:19amAssessment: Highest weight/starting weight: 249 lbs Start weight: [...] other side effects. 3. Impaired fasting glucose/prediabetes/gestational mskjtkuc-gqgmm-rnui treatment with lifestyle change, decrease simple sweets [...] Our exercise program was recommended with our financial systems analyst/obesity exercise group. Handout given. Our free weekly [...] and benefits of prescribed meds discussed. Initial efel-ec-zxpl interview/evaluation. The patient was counseled in detail on the options for weight loss in an individual setting. [ ] minutes was spent caring for the patient, counseling/educating patient on the options for the treatment of obesity and related healthcare issues. The program's treatment goals were reviewed with the patient. Each aspect of the program was discussed with the patient. [facility] Work Phone: Evaluation note* Diagnosis Itching- Primary [...] status migrainosus, not intractable, unspecified migraine type ([facility]) documented in this encounter [facility]* Diagnosis Hypothyroidism, unspecified type (CMS/HCC) documented in this encounter [facility]* Diagnosis Well woman exam with routine gynecological exam- Primary Routine gynecological examination documented in this encounter [facility]* Diagnosis Essential hypertension (CMS/HCC) Unspecified essential hypertension documented in this encounter [facility]* Diagnosis Right shoulder pain, unspecified chronicity- Primary Essential hypertension ([facility]/HCC) Unspecified essential hypertension Gastroesophageal reflux disease, unspecified whether esophagitis present documented in this encounter [facility]* Diagnosis Acute pain of right shoulder- Primary Impingement of right shoulder Calcific tendinitis of right shoulder documented in this encounter [facility]* Diagnosis Left hip pain- Primary Pain in joint, pelvic region and thigh Back pain, unspecified back location, unspecified back pain laterality, unspecified chronicity Pain of left heel Left hip pain Pain in joint, pelvic region and thigh documented in this encounter [facility]* Diagnosis Acute hip pain, left- Primary documented in this encounter [facility]* Diagnosis Right wrist pain- Primary Pain in joint, forearm Left wrist pain Pain in joint, forearm documented in this encounter [facility]* Diagnosis Right wrist pain- Primary Pain in joint, forearm Ganglion cyst of dorsum of right wrist documented in this encounter [facility] HealthcareReason for referral (narrative)No reason for referral information availableClermont County Hospital Work Phone: Summary Purpose Family History Relationship Condition Age at Onset Recorded Date/T trey Not Specified Heart disease Unknown HypertensionUnknownfatherDiabetes mellitusUnknown Relationship Condition Age at Onset Recorded Date/T trey mother Heart disease Unknown HypertensionUnknownfatherDiabetes mellitusUnknown Advance Directives Advance Directive Response Recorded Date/ Time Advance Directives No November 24 10:19am Advance Directive Response Recorded Date/ Time Advance Directives No November 24 9:19am Chief Complaint and Reason for Visit Chief Complaint Initial WMN group Reason for Visit BMI 40.0-44.9, adult Essential hypertension Hypertriglyceridemia Prediabetes Reason for Visit Admit Date BMI 40.0-44.9, adult July 03, 2024 9:47am Essential hypertension July 03 9:47am Prediabetes July 03, 2024 9 :47am Reason for Visit Admit Date Essential hypertension September 25 9:38am GERD (gastroesophageal reflux disease) J anuary 2024 9:38am Mixed hyperlipidemia September 25, 2024 9:38am Obesity, Class II, BMI 35-39.9 August 312024 9:38am Prediabetes September 25, 2024 9 :38am Chief Complaint Admit Date 2 month March 26, 2025 8:24 am Additional Source Comments INFORMATION SOURCE (unrecogn ized section and content) DATE CREATED AUTHOR 12/17/2021 [facility] [employer] DATE CREATED AUTHOR AUTHOR'S ORGANIZ ATION 08/08/2022 [facility] DATE CREATED AUTHOR AUTHOR'S ORGANIZ ATION 12/23/2024 [facility] DATE CREATED AUTHOR AUTHOR'S ORGANIZ ATION 04/27/2025 [facility] EPIC Care Teams (unrecognized sec tion and content) Team Status: Active Member Role Status Ginna Gaxioal MD Primary Care Provider Active Team Status: Inactive Member Role Status Ginna Gaxiola MD Primary Care Provider Active Start: January 31, 2024 End: January 30Miranda Vickers ProviderActiveStart: January 31, 2024 End: January 31, 2024 Team Status: Inactive Member Role Status Ginna Gaxiola MD Primary Care Provider Active Start: February 22, 2024 End: February 21SILVERIO Bragg ProviderActiveStart: February 22, 2024 End: February 22, 2024 Team Status: Inactive Member Role Status Ginna Gaxiola MD Primary Care Provider Active Start: March 20, 2024 End: March 20Miranda Vickers ProviderActiveStart: March 20, 2024 End: March 20, 2024 Team Status: Active Member Role Status Ginna Gaxiola MD Primary Care Provider Active Start: November 25, 2023 Mary Gonzales ProviderActiveStart: November 25, 2023 Team Status: Inactive Member Role Status Dates Shakila Gaxiola MD Primary Care Provider Active Start: May 15, 2024 End: May 15desmond Salas MDAttending ProviderActiveStart: May 15, 2024 End: May 15, 2024Team MemberRelationshipSpecialtyStart DateEnd Date Shakila Gaxiola MD [address] [place] [address] [facility]/05/23am MemberRelationshipSpecialtyStart DateEnd Date Shakila Gaxiola MD [address] [place] [address] [facility] - [facility]23 MemberRelationshipSpecialtyStart DateEnd Date Shakila Gaxiola MD [address] [place] [address] [facility] - [facility]/05/23am MemberRelationshipSpecialtyStart DateEnd Date Shakila Gaxiola MD [address] [place] [address] PCP - Generalmily Medicine01/05/23am MemberRelationshipSpecialtyStart DateEnd Date Shakila Gaxiola MD [address] [place] [address] PCP - [facility] Medicine01/05/23Team MemberRelationshipSpecialtyStart DateEnd Date Shakila Gaxiola MD [address] [place] [address] PCP - [facility]01/05/23Team MemberRelationshipSpecialtyStart DateEnd Date Shakila Gaxiola MD [address] [facility] [place] [address] PCP - [facility] Medicine01/05/23Team MemberRelationshipSpecialtyStart DateEnd Shakila Nino MD [address] [facility] [place] [address] PCP - [facility]01/05/23Team MemberRelationshipSpecialtyStart DateEnd Date Shakila Gaxiola MD [address] [facility] [place] [address] PCP - [facility]01/05/23 Team Status: Inactive Member Role Status Ginna Gaxiola MD Primary Care Provider Active Start: July 03, 2024 End: July 03Miranda Vickers ProviderActiveStart: July 03, 2024 End: July 03, 2024 Team Status: Active Member Role Status Ginna Gaxiola MD Primary Care Provider Active Start: July 14, 2024 Miranda Clifford ProviderActiveStart: July 14, 2024 Team Status: Inactive Member Role Status Ginna Gaxiola MD Primary Care Provider Active Start: September 25, 2024 End: September 25, 2024Miranda Clifford ProviderActiveStart: September 25, 2024 End: September 25, 2024 Team Status: Inactive Member Role Status Ginna Gaxiola MD Primary Care Provider Active Start: November 20, 2024 End: November 20, 2024Miranda Clifford ProviderActiveStart: November 20, 2024 End: November 20, 2024Team MemberRelationshipSpecialtyStart DateEnd Shakila Nino MD [address] [place] [address] PCP - [facility]01/05/23Team MemberRelationshipSpecialtyStart DateEnd Shakila Nino MD PCP - [facility] Medicine01/05/23Team MemberRelationshipSpecialtyStart DateEnd Date Shakila Gaxiola MD PCP - [facility] Medicine01/05/23 Team Status: Inactive Member Role Status Dates Shakila Gaxiola MD Primary Care Provider Active Start: March 26, 2025 End: March 26, 2025Breezy Salas MDAttending ProviderActiveStart: March 26, 2025 End: March 26, 2025Team MemberRelationshipSpecialtyStart DateEnd Date Gwendolyn Almazan NP [address] [place] [address] PCP - [facility] [employer] [facility] Shakila Gaxiola MD [address] [place] [address] PCP - [facility] Shakila Gaxiola MD PCP - [facility] [employer] [facility]11/28/2409Team MemberRelationshipSpecialty Start DateEnd Date Shakila Gaxiola MD PCP - [facility] Medicine Goals (unrecognized section and content) Goals may [...] for Visit (unrecogniz ed section and content) ReasonCommentsGynecologic ExamReasonCommentsAnnual ExamReasonCommentsMed Refill ReasonCommentsShoulder PainRt shoulder pain since Wednesday. Pain worse. Went to ER early this morning. Has appt with Dr. Higginbotham next Wed.ReasonCommentsPain SpecialtyDiagnoses / ProceduresReferred By ContactReferred To ContactOrthopaedic Surgery Diagnoses Calific tendenitis Procedures RI UNLISTED EVALUATION AND MANAGEMENT SERVICE [facility] [address] [place] [address] Jr. Gianna Higginbotham, DO [address] [place] [address] Phone: tel: fax: Referral IDStatusReasonStart DateExpiration DateVisits RequestedVisits [id number] PainLeft side pain started Wednesday. Has been taking ibuprofen and cyclobenzaprine.Reason CommentsPainReasonCommentsFollow-upReasonCommentsMass FOR RECORDS PERTAINING TO PATIENTS WHO ARE [...] BE BASED ON THE PRIMARY CLINICAL RECORDS. [facility] [employer] [facility]. provides no warranty or guarantee of the accuracy or completeness of information in this document.
== END 2025-07-30 14:58 | disposition home or self-care (01) ==
LOC: LAB 14:57
PROVIDERS: PCP Family Medicine; Visit Provider Physician Assistant
DX: Z01.419 Encounter for gynecological examination (general) (routine) without abnormal findings (principal)
CPT/HCPCS: 88175